=== PATIENT | male | born 1940 | race Caucasian/White ===

== ENCOUNTER → 2017-03-02 | Outpatient (CLI) | payer MEDICARE ==
[2017-03-02 17:26] LABS: Blood Urea Nitrogen 14 mg/dL (9-20); Non-African American GFR(MDRD) >60 (>60 ml/min/1.73 sqM)
--- NOTE | 2017-03-02 19:04 | CT ---
EXAMINATION TYPE: CT chest w con DATE OF EXAM: 03/02/2017 COMPARISON: NONE HISTORY: Right sided breast swelling and pain CT DLP: 252.3 mGycm Automated exposure control for dose reduction was used. CONTRAST: CT scan of the chest is performed with IV Contrast, patient injected with 100 mL of Omnipaque 300. FINDINGS: There is mild diffuse pulmonary emphysema. There is some increased interstitial density in both lungs consistent with mild fibrosis. There is a 1 cm stellate infiltrate in the superior segment left lowe r lobe. There are no hilar masses. Thoracic aorta is atheromatous. There is aneurysm of the thoracic aorta. T he proximal and mid descending aorta measure up to 5 cm. There is thrombus that measures up to almost 2 cm. There is no sign of dissection. There are surgical clips in the upper abdominal aorta. I see n o filling defects in the pulmonary arteries. There is no mediastinal adenopathy. There are no hilar m asses. There is no pericardial effusion. Heart is slightly enlarged. There is no pleural effusion. There is a oval-shaped 2.5 x 1.2 cm density at the right breast consistent with some gynecomastia. Thoracic spine is intact. I see no focal bony destructive process. . IMPRESSION: Emphysema. Thoracic aortic aneurysm measures up to 5 cm with mural thrombus. Very small stellate infiltrate in the left lower lobe is probably due to scarring. Atherosclerotic vascular dise ase. Cardiomegaly. Asymmetric right breast density probably is due to gynecomastia. Ultrasound would be helpful for furt her evaluation if clinically indicated. Large central pulmonary arteries consistent with pulmonary hypertension
== END | disposition home or self-care (01) ==
LOC: RADCTMAIN 16:47
PROVIDERS: ATTEND Family Medicine
DX: J43.9 Emphysema, unspecified (principal); R91.8 Other nonspecific abnormal finding of lung field
CPT/HCPCS: 82565; 84520; 71260; 36415; Q9967

== ENCOUNTER → 2017-11-26 | Outpatient (CLI) | payer MEDICARE ==
[2017-11-26 16:24] LABS: Blood Urea Nitrogen 17 mg/dL (9-20)
--- NOTE | 2017-11-27 08:00 | CT ---
EXAMINATION TYPE: CT angio chest DATE OF EXAM: 11/26/2017 COMPARISON: CT chest March 02, 2017. HISTORY: Thoracic aortic aneurysm. CT DLP: 446 mGycm. Automated Exposure Control for Dose Reduction was Utilized. CONTRAST: CTA scan of the thorax is performed without and with IV Contrast, patient injected with 100 mL of Iso sharon 370, aneurysm protocol. Three-D Images are created on independent workstation and reviewed. [facility] protocol. FINDINGS: LUNGS: There is background of moderate underlying emphysematous change redemonstrated. There is less prominent 3 mm nodule in the superior aspect left lower lobe axial image 32. There is persistent reti culation or fibrosis in the right lung base. There is no new suspicious nodule or mass. There is no p leural effusion or pneumothorax seen bilaterally. Tracheobronchial tree is patent. MEDIASTINUM: There is satisfactory enhancement of the pulmonary artery and its branches, there is no CT evidence for pulmonary embolism. There are no greater than 1 cm hilar or mediastinal lymph nodes. No significant pericardial effusion is seen. Main pulmonary artery remains dilated at 4.0 cm axial image 28, CT findings consistent with underlying pulmonary artery hypertension. Cardiomegaly is rede monstrated. There is fairly severe 3 vessel coronary artery calcification and/or stents noted. Ascending aorta measures up to 3.9 cm in diameter axial image 30. There is ectasia of the descending thoracic aorta. There is more focal aneurysm measuring 4.4 x 4.3 cm axial image 32 with anterior left lateral peripheral noncalcified plaque redemonstrated that extends inferiorly to level of diaphragma tic hiatus where there is additional aneurysm measuring 4.9 x 4.8 cm on axial image 56. There is fair ly moderate to severe concentric mixed plaque in the lower thoracic and upper abdominal aorta with pl aque extension into upper abdominal branches. There are surgical clips just below level of renal anahy george redemonstrated. Just below this there is partial visualization of stent graft in the mid abdomen . OTHER: Nodular gynecomastia bilaterally is redemonstrated. Cholecystectomy clips are again seen. IMPRESSION: Ectatic and aneurysmal thoracic aorta measuring up to 3.9 cm and ascending segment and 4. 9 cm and descending segment with fairly moderate to severe plaque in mid to distal thoracic aorta an d upper abdominal aorta above surgical placement of stent graft noted. Overall no appreciable change in aneurysm size from prior.
== END | disposition home or self-care (01) ==
LOC: RADCTMAIN 15:36
PROVIDERS: ATTEND Surgery
DX: I77.810 Thoracic aortic ectasia (principal); I70.0 Atherosclerosis of aorta; Z98.890 Other specified postprocedural states
CPT/HCPCS: 82565; 84520; 71275; 36415; Q9967

== ENCOUNTER 2018-01-08 15:27 | Inpatient (IN) | payer MEDICARE ==
--- NOTE | 2018-01-08 15:46 | ED ---
General Adult HPI - General Chief complaint: Arrhythmia/Palpitations Stated complaint: Irregular heart Time Seen by Provider: 01/08/18 15:45 Source: patient, RN notes reviewed, old records reviewed Mode of arrival: ambulatory Limitations: no limitations - History of Present Illness Initial comments: This is a 77-year-old male the ER for evaluation of not feeling well, irregular heartbeat. Patient has no significant history of heart disease, he states he was told he is negative for dental aneurysm at some point. Patient denies any pain, he states his heart rate elevated for about 3 days, patient thought he was having some gas or constipation. But again I shortness of breath no recent travel history no known sick contacts. Patient has no medication changes. No known fevers. Again no chest pain no shortness of breath - Related Data Home Medications Medication Instructions Recorded Confirmed ALPRAZolam [Xanax] 0.5 mg PO DAILY PRN 08/26/15 01/08/18 Albuterol Sulfate [Proair Hfa] 1 - 2 puff INHALATION RT-Q6H PRN 08/26/15 Clopidogrel [Plavix] 75 mg PO DAILY 08/26/15 01/08/18 Mometasone/Formoterol [Dulera 200 2 puff INHALATION RT-DAILY PRN 08/26/15 Mcg/5 Mcg Inhaler] Aspirin [Adult Low Dose Aspirin EC] 81 mg PO HS 12/25/16 01/08/18 Atorvastatin [Lipitor] 20 mg PO HS 12/25/16 01/08/18 Mercaptopurine [Purinethol] 50 mg PO DAILY 12/25/16 01/08/18 Levothyroxine Sodium [Synthroid] 112 mcg PO DAILY 01/08/18 01/08/18 Allergies Allergy/AdvReac Type Severity Reaction Status Date / Time codeine Allergy Unknown Verified 01/08/18 16:01 Review of Systems ROS Statement: Those systems with pertinent positive or pertinent negative responses have been documented in the HPI. ROS Other: All systems not noted in ROS Statement are negative. 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,AUTOIMMUNE HEPATITIS, COLON POLYPS, rt elbow bursa , dysphagia, rt carotid artery blocked Last Myocardial Infarction Date:: UNK History of Any Multi-Drug Resistant Organisms: None Reported Past Surgical History: Cholecystectomy Additional Past Surgical History / Comment(s): ABDOMINAL AORTIC ANEURYSM REPAIR WITH STENTS,COLONOSCOPY,NHAN CATARACTS, lt carotid artery surgery Past Anesthesia/Blood Transfusion Reactions: No Reported Reaction Past Psychological History: No Psychological Hx Reported Smoking Status: Current every day smoker Past Alcohol Use History: None Reported Past Drug Use History: None Reported - Past Family History Mother Family Medical History: Cancer Father Additional Family Medical History / Comment(s): COLOSTOMY Daughter(s) Family Medical History: Deep Vein Thrombosis (DVT) Additional Family Medical History / Comment(s): HX FACTOR FIVE LEIDEN General Exam Limitations: no limitations General appearance: alert, in no apparent distress Head exam: Present: atraumatic, normocephalic, normal inspection Eye exam: Present: normal appearance, PERRL, EOMI. Absent: scleral icterus, conjunctival injection, periorbital swelling ENT exam: Present: normal exam, mucous membranes moist Neck exam: Present: normal inspection. Absent: tenderness, meningismus, lymphadenopathy Respiratory exam: Present: normal lung sounds bilaterally. Absent: respiratory distress, wheezes, rales, rhonchi, stridor Cardiovascular Exam: Present: tachycardia, irregular rhythm, normal heart sounds. Absent: systolic murmur, diastolic murmur, rubs, gallop, clicks GI/Abdominal exam: Present: soft, normal bowel sounds. Absent: distended, tenderness, guarding, rebound, rigid Extremities exam: Present: normal inspection, full ROM, normal capillary refill. Absent: tenderness, pedal edema, joint swelling, calf tenderness Back exam: Present: normal inspection Neurological exam: Present: alert, oriented X3, CN II-XII intact Psychiatric exam: Present: normal affect, normal mood Skin exam: Present: warm, dry, intact, normal color. Absent: rash Course Vital Signs 01/08/18 01/08/18 01/08/18 15:30 16:12 17:12 Temperature 97.0 F L Pulse Rate 144 H 144 H Pulse Rate [ 146 H Trick Rodeo Rider ] Respiratory 20 18 Rate Blood Pressure 134/88 148/84 O2 Sat by Pulse 98 100 Oximetry 01/08/18 01/08/18 17:32 18:20 Temperature Pulse Rate 142 H 87 Pulse Rate [ Trick Rodeo Rider ] Respiratory 18 18 Rate Blood Pressure 113/81 98/76 O2 Sat by Pulse 100 98 Oximetry - Reevaluation(s) Reevaluation #1: 01/08/18 18:47 Patient's heart rate initially mild improvement in rate EKG Findings - EKG Comments: EKG Findings:: EKG shows a flutter rate of 141, QRS 88, QTc 382 Medical Decision Making - Medical Decision Making 77 male the ER for evaluation of irregular heart positive A. fib with RVR which is new onset, will admit patient for cardiology evaluation and treatment - Lab Data Result diagrams: 01/08/18 15:50 01/08/18 15:50 Lab Results 01/08/18 01/08/18 01/08/18 Range/Units 15:50 15:50 15:50 WBC 6.4 (3.8-10.6) k/uL RBC 4.08 L (4.30-5.90) m/uL Hgb 13.5 (13.0-17.5) gm/dL Hct 41.3 (39.0-53.0) % MCV 101.4 H (80.0-100.0) fL MCH 33.1 (25.0-35.0) pg MCHC 32.7 (31.0-37.0) g/dL RDW 14.8 (11.5-15.5) % Plt Count 177 (150-450) k/uL Neutrophils % 74 % Lymphocytes % 14 % Monocytes % 8 % Eosinophils % 2 % Basophils % 0 % Neutrophils # 4.7 (1.3-7.7) k/uL Lymphocytes # 0.9 L (1.0-4.8) k/uL Monocytes # 0.5 (0-1.0) k/uL Eosinophils # 0.1 (0-0.7) k/uL Basophils # 0.0 (0-0.2) k/uL Macrocytosis Slight PT 10.6 (9.0-12.0) sec INR 1.1 (<1.2) APTT 24.6 (22.0-30.0) sec D-Dimer 18.13 H (<0.60) mg/L FEU Sodium 140 (137-145) mmol/L Potassium 4.4 (3.5-5.1) mmol/L Chloride 99 (98-107) mmol/L Carbon Dioxide 29 (22-30) mmol/L Anion Gap 12 mmol/L BUN 14 (9-20) mg/dL Creatinine 0.82 (0.66-1.25) mg/dL Est GFR (CKD-EPI)AfAm >90 (>60 ml/min/1.73 sqM) Est GFR (CKD-EPI)NonAf 84 (>60 ml/min/1.73 sqM) Glucose 99 (74-99) mg/dL Calcium 9.4 (8.4-10.2) mg/dL Magnesium 1.9 (1.6-2.3) mg/dL Total Bilirubin 0.7 (0.2-1.3) mg/dL AST 39 (17-59) U/L ALT 41 (21-72) U/L Alkaline Phosphatase 190 H (38-126) U/L Total Creatine Kinase (55-170) U/L CK-MB (CK-2) (0.0-2.4) ng/mL CK-MB (CK-2) Rel Index Troponin I (0.000-0.034) ng/mL NT-Pro-B Natriuret Pep pg/mL Total Protein 7.7 (6.3-8.2) g/dL Albumin 4.2 (3.5-5.0) g/dL Lipase 27 (23-300) U/L TSH 3.310 (0.465-4.680) mIU/L 01/08/18 01/08/18 Range/Units 15:50 15:50 WBC (3.8-10.6) k/uL RBC (4.30-5.90) m/uL Hgb (13.0-17.5) gm/dL Hct (39.0-53.0) % MCV (80.0-100.0) fL MCH (25.0-35.0) pg MCHC (31.0-37.0) g/dL RDW (11.5-15.5) % Plt Count (150-450) k/uL Neutrophils % % Lymphocytes % % Monocytes % % Eosinophils % % Basophils % % Neutrophils # (1.3-7.7) k/uL Lymphocytes # (1.0-4.8) k/uL Monocytes # (0-1.0) k/uL Eosinophils # (0-0.7) k/uL Basophils # (0-0.2) k/uL Macrocytosis PT (9.0-12.0) sec INR (<1.2) APTT (22.0-30.0) sec D-Dimer (<0.60) mg/L FEU Sodium (137-145) mmol/L Potassium (3.5-5.1) mmol/L Chloride (98-107) mmol/L Carbon Dioxide (22-30) mmol/L Anion Gap mmol/L BUN (9-20) mg/dL Creatinine (0.66-1.25) mg/dL Est GFR (CKD-EPI)AfAm (>60 ml/min/1.73 sqM) Est GFR (CKD-EPI)NonAf (>60 ml/min/1.73 sqM) Glucose (74-99) mg/dL Calcium (8.4-10.2) mg/dL Magnesium (1.6-2.3) mg/dL Total Bilirubin (0.2-1.3) mg/dL AST (17-59) U/L ALT (21-72) U/L Alkaline Phosphatase (38-126) U/L Total Creatine Kinase 61 (55-170) U/L CK-MB (CK-2) 1.0 (0.0-2.4) ng/mL CK-MB (CK-2) Rel Index 1.6 Troponin I 0.082 H* (0.000-0.034) ng/mL NT-Pro-B Natriuret Pep 1330 pg/mL Total Protein (6.3-8.2) g/dL Albumin (3.5-5.0) g/dL Lipase (23-300) U/L TSH (0.465-4.680) mIU/L - Radiology Data Radiology results: report reviewed (Chest x-ray negative, CT chest negative for PE), image reviewed Critical Care Time Critical Care Time: Yes Total Critical Care Time: 31 Disposition Clinical Impression: Tachycardia, Atrial fibrillation with RVR Disposition: ADMITTED IP TO THIS HOSP Condition: Fair Is patient prescribed a controlled substance at d/c from ED?: No
[2018-01-08] MEDS ORDERED: HEPARIN SODIUM,PORCINE 5,000 UNIT/ML 1 ML VIAL IV PRN (16:19)
[2018-01-08] MEDS ORDERED: SODIUM CHLORIDE 0.9% 1,000 ML IV STA ×2 (16:19)
[2018-01-08] MEDS ORDERED: HEPARIN SODIUM,PORCINE 5,000 UNIT/ML 1 ML VIAL IV ONE (16:19)
[2018-01-08] MEDS ORDERED: NITROGLYCERIN SL TABS 0.4 MG TAB SUBLINGUAL PRN (16:19)
[2018-01-08 16:40] LABS: Basophils % (A) 0 %; Eosinophils # (A) 0.1 k/uL (0-0.7); Eosinophils % (A) 2 %; HCT 41.3 % (39.0-53.0); HGB 13.5 gm/dL (13.0-17.5); Lymphocytes # (A) 0.9 k/uL (1.0-4.8); Lymphocytes % (A) 14 %; MCH 33.1 pg (25.0-35.0); MCHC 32.7 g/dL (31.0-37.0); MCV 101.4 fL (80.0-100.0); Macrocytosis Slight; Mean Platelet Volume 7.4; Monocytes # (A) 0.5 k/uL (0-1.0); Monocytes % (A) 8 %; Neutrophils # (A) 4.7 k/uL (1.3-7.7); Neutrophils % (A) 74 %; Platelet Count 177 k/uL (150-450); RBC 4.08 m/uL (4.30-5.90); RDW 14.8 % (11.5-15.5); WBC 6.4 k/uL (3.8-10.6)
[2018-01-08 16:41] LABS: ALT 41 U/L (21-72); AST 39 U/L (17-59); Albumin 4.2 g/dL (3.5-5.0); Alkaline Phosphatase 190 U/L (38-126); Anion Gap 12 mmol/L; Blood Urea Nitrogen 14 mg/dL (9-20); Calcium 9.4 mg/dL (8.4-10.2); Carbon Dioxide 29 mmol/L (22-30); Chloride 99 mmol/L (98-107); Glucose 99 mg/dL (74-99); Lipase 27 U/L (23-300); Magnesium 1.9 mg/dL (1.6-2.3); Potassium 4.4 mmol/L (3.5-5.1); Sodium 140 mmol/L (137-145); Total Bilirubin 0.7 mg/dL (0.2-1.3); Total Protein 7.7 g/dL (6.3-8.2)
--- NOTE | 2018-01-08 16:43 | XR ---
EXAMINATION TYPE: XR chest 2V DATE OF EXAM: 01/08/2018 COMPARISON: CTA chest November 26, 2017. HISTORY: Irregular heartbeats and chest pain. TECHNIQUE: Frontal and lateral views of the chest are obtained. FINDINGS: There is chronic emphysematous change with basilar scarring and/or atelectasis redemonstra marlon. There is no new suspicious focal air space opacity, pleural effusion, or pneumothorax seen. [employer] lois blunting of posterior costophrenic angles is present. The cardiac silhouette size is within norm al limits with ectatic descending thoracic aorta redemonstrated. The osseous structures are intact. Surgical change in the upper to mid abdomen from aortic aneurysm repair is partially imaged. IMPRESSION: Chronic changes without acute pulmonary process.
[2018-01-08 16:48] LABS: INR 1.1 (<1.2); Partial Thromboplastin Time 24.6 sec (22.0-30.0); Prothrombin Time 10.6 sec (9.0-12.0)
[2018-01-08 17:00] LABS: D-Dimer 18.13 mg/L FEU (<0.60)
[2018-01-08] MEDS ORDERED: DILTIAZEM 50 MG in SODIUM CHLORIDE 0.9% 40 ML IV ONE (17:00)
[2018-01-08 17:02] LABS: Troponin I 0.082 ng/mL (0.000-0.034)
[2018-01-08] MEDS: HEPARIN SODIUM,PORCINE/D5W PMX 25,000 UNIT in DEXTROSE/WATER 1 500ML.BAG IV SCH ×2 (17:06→23:37)
[2018-01-08] MEDS ORDERED: RX INFO: IV CONTRAST WAS GIVEN 1 EACH MISC MISCELLANE PRN (17:26)
[2018-01-08] MEDS ORDERED: ALPRAZolam 0.5 MG TAB PO STA (17:38)
--- NOTE | 2018-01-08 18:33 | CT ---
EXAMINATION TYPE: CT angio chest DATE OF EXAM: 01/08/2018 COMPARISON: Prior CTA of the chest dated 11/26/2017 HISTORY: TACHYCARDIA CT DLP: 181.8 mGycm Automated exposure control for dose reduction was used. CONTRAST: CTA scan of the thorax is performed with IV Contrast, patient injected with 80 mL of Isovue 370, pulm onary embolism protocol. MIP images are created and reviewed. 3D reconstructed images are created o n an independent workstation and reviewed. FINDINGS: LUNGS: The lungs are grossly clear, there is no concerning parenchymal mass or nodule identified. T here is no pleural effusion or pneumothorax seen. The tracheobronchial tree is patent. Extensive emp hysematous changes are again noted. AORTA: Ascending aorta is aneurysmal at 4.1 cm, descending aorta also aneurysmal measuring 4.9 cm. T he heart is enlarged. Pulmonary artery is prominent. There are coronary artery calcifications. MEDIASTINUM: There is satisfactory enhancement of the pulmonary artery and its branches, there is no CT evidence for pulmonary embolism. There are no greater than 1 cm hilar or mediastinal lymph nodes. No pericardial effusion is seen. OTHER: No additional significant abnormality is seen. IMPRESSION: EMPHYSEMA. THORACIC AORTIC ANEURYSM. CARDIOMEGALY AND CORONARY ARTERY DISEASE. CORRELATE FOR PULMONAR Y ARTERY HYPERTENSION.
[2018-01-08] MEDS ORDERED: SODIUM CHLORIDE 0.9% 500 ML IV ONE (19:15)
[2018-01-08 19:58] VITALS: BMI 22.7
[2018-01-08] MEDS: METOPROLOL TARTRATE 50 MG TAB PO SCH (21:04)
[2018-01-08] MEDS ORDERED: ALPRAZolam 0.5 MG TAB PO PRN (21:25)
[2018-01-08] MEDS ORDERED: ATORVASTATIN 20 MG TAB PO SCH (21:45)
[2018-01-08] MEDS ORDERED: IPRATROPIUM-ALBUTEROL 3 ML NEB INHALATION PRN (21:52)
[2018-01-08 23:40] LABS: Creatine Kinase MB 0.9 ng/mL (0.0-2.4)
[2018-01-08 23:42] LABS: Troponin I 0.082 ng/mL (0.000-0.034)
[2018-01-09 04:16] LABS: Basophils % (A) 0 %; Eosinophils # (A) 0.1 k/uL (0-0.7); Eosinophils % (A) 3 %; HCT 34.7 % (39.0-53.0); HGB 11.5 gm/dL (13.0-17.5); Lymphocytes # (A) 0.8 k/uL (1.0-4.8); Lymphocytes % (A) 16 %; MCH 33.9 pg (25.0-35.0); MCHC 33.1 g/dL (31.0-37.0); MCV 102.3 fL (80.0-100.0); Macrocytosis Slight; Mean Platelet Volume 7.5; Monocytes # (A) 0.4 k/uL (0-1.0); Monocytes % (A) 8 %; Neutrophils # (A) 3.6 k/uL (1.3-7.7); Neutrophils % (A) 71 %; Platelet Count 137 k/uL (150-450); RBC 3.39 m/uL (4.30-5.90); RDW 14.9 % (11.5-15.5); WBC 5.1 k/uL (3.8-10.6)
[2018-01-09 04:58] LABS: Creatine Kinase MB 0.9 ng/mL (0.0-2.4)
[2018-01-09 05:10] LABS: Troponin I 0.091 ng/mL (0.000-0.034)
[2018-01-09 05:40] LABS: Anion Gap 12 mmol/L; Blood Urea Nitrogen 14 mg/dL (9-20); Calcium 8.6 mg/dL (8.4-10.2); Carbon Dioxide 23 mmol/L (22-30); Chloride 106 mmol/L (98-107); Cholesterol 122 mg/dL (<200); Glucose 88 mg/dL (74-99); HDL Cholesterol 44 mg/dL (40-60); LDL Cholesterol,Calculated 67 mg/dL (0-99); Potassium 4.2 mmol/L (3.5-5.1); Sodium 141 mmol/L (137-145); Triglycerides 57 mg/dL (<150)
[2018-01-09] MEDS ORDERED: LEVOTHYROXINE 112 MCG TAB PO SCH (06:30)
[2018-01-09] MEDS: METOPROLOL TARTRATE 50 MG TAB PO SCH (08:54)
[2018-01-09] MEDS ORDERED: ASPIRIN 325 MG TAB PO SCH (09:00)
[2018-01-09] MEDS ORDERED: CLOPIDOGREL 75 MG TAB PO SCH (09:00)
[2018-01-09] MEDS ORDERED: MERCAPTOPURINE 50 MG TAB PO SCH (09:00)
[2018-01-09 09:52] VITALS: RESP 18
--- NOTE | 2018-01-09 11:04 | P.HPIM ---
History of Present Illness H&P Date: 01/09/18 Chief Complaint: Shortness of breath Oneil Arthur is a 77-year-old male patient of Dr. Kayla Meyers who presented to [facility] emergency room with several days complaint of shortness of breath. Patient was seen at Dr. Kayla Meyers office for an echocardiogram, he had evidence of atrial fibrillation with rapid ventricular response, he was sent to [facility] emergency room. Patient was evaluated in emergency room he was started on IV Cardizem and IV heparin and admitted to telemetry floor cardiology consultation was requested. Patient denies any previous history of hypertension, no history of cardiac disease, he has known history of ascending aortic aneurysm, for which she is monitored yearly at [facility], he also has known history of peripheral vascular disease and had stents in his groin area bilaterally by Dr. Vásquez 12 years ago, he has been maintained on Plavix since, he is a lifelong smoker. Past Medical History Past Medical History: COPD, Deep Vein Thrombosis (DVT), Myocardial Infarction ( [place]), Thyroid Disorder Additional Past Medical History / Comment(s): HX ABDOMINAL AORTIC ANEURYSM, VOCAL CORD [place]-2007 RADIATION,AUTOIMMUNE HEPATITIS, COLON POLYPS, rt elbow bursa , dysphagia, rt carotid artery blocked Last Myocardial Infarction Date:: UNK History of Any Multi-Drug Resistant Organisms: None Reported Past Surgical History: Cholecystectomy Additional Past Surgical History / Comment(s): ABDOMINAL AORTIC ANEURYSM REPAIR WITH STENTS,COLONOSCOPY,NHAN CATARACTS, lt carotid artery surgery Past Anesthesia/Blood Transfusion Reactions: No Reported Reaction Past Psychological History: No Psychological Hx Reported Smoking Status: Current every day smoker Past Alcohol Use History: None Reported Additional Past Alcohol Use History / Comment(s): STARTED SMOKING 1956 10 cigarettes/day Past Drug Use History: None Reported - Past Family History Mother Family Medical History: Cancer Additional Family Medical History / Comment(s): breast CA Father Additional Family Medical History / Comment(s): COLOSTOMY Daughter(s) Family Medical History: Deep Vein Thrombosis (DVT) Additional Family Medical History / Comment(s): HX FACTOR FIVE LEIDEN Medications and Allergies Home Medications Medication Instructions Recorded Confirmed Type ALPRAZolam [Xanax] 0.5 mg PO DAILY PRN 08/26/15 01/08/18 History Albuterol Sulfate [Proair Hfa] 1 - 2 puff INHALATION RT-Q6H PRN 08/26/15 History Clopidogrel [Plavix] 75 mg PO DAILY 08/26/15 01/08/18 History Mometasone/Formoterol [Dulera 200 2 puff INHALATION RT-DAILY PRN 08/26/15 History Mcg/5 Mcg Inhaler] Aspirin [Adult Low Dose Aspirin EC] 81 mg PO HS 12/25/16 01/08/18 History Atorvastatin [Lipitor] 20 mg PO HS 12/25/16 01/08/18 History Mercaptopurine [Purinethol] 50 mg PO DAILY 12/25/16 01/08/18 History Levothyroxine Sodium [Synthroid] 112 mcg PO DAILY 01/08/18 01/08/18 History Allergies Allergy/AdvReac Type Severity Reaction Status Date / Time codeine Allergy Unknown Verified 01/08/18 16:01 Physical Exam Vitals: Vital Signs Temp Pulse Pulse Resp BP BP Pulse Ox 01/09/18 08:00 96.4 F L 63 18 125/62 96 01/09/18 03:47 61 17 01/09/18 03:43 97.5 F L 61 17 130/74 97 01/08/18 23:57 69 18 01/08/18 23:51 97.5 F L 69 18 122/78 93 L 01/08/18 20:00 97.2 F L 71 17 103/72 95 01/08/18 19:13 97.2 F L 71 18 103/72 95 01/08/18 19:11 97.1 F L 110 H 18 92/61 98 01/08/18 18:20 87 18 98/76 98 01/08/18 17:32 142 H 18 113/81 100 01/08/18 17:12 144 H 18 148/84 100 01/08/18 16:12 146 H 01/08/18 15:30 97.0 F L 144 H 20 134/88 98 Intake and Output 01/08/18 01/09/18 01/09/18 22:59 06:59 14:59 Intake Total 300 1398.969 Output Total 100 Balance 300 1298.969 Intake: IV 100 0.9@20ml/hr 100 Intake, IV Titration 1298.969 Amount Heparin Sodium,Porcine/ 598.969 D5w Pmx 25,000 unit In Dextrose/Water 1 500ml. bag @ 12 UNITS/KG/HR 15. 89 mls/hr IV .Q24H OMI Rx #:[id number] Sodium Chloride 0.9% 1, 700 000 ml @ 100 mls/hr IV . Q10H STA Rx#:[id number] Oral 300 Output: Urine 100 Other: Voiding Method Toilet Toilet Toilet Urinal Urinal Urinal # Voids 1 Weight 67.9 kg 67.9 kg In general patient is alert and oriented 3 in no apparent distress HEENT head normocephalic and atraumatic Neck is supple no JVD no goiter no lymphadenopathy Chest exam reveals a few scattered crackles no wheezing Cardiac exam reveals regular heart sounds no gallops no murmurs Abdomen is soft nontender no organomegaly with normal bowel sounds Extremity exam reveals no edema no cyanosis or clubbing Results CBC & Chem 7: 01/09/18 03:58 01/09/18 03:58 Labs: Abnormal Lab Results - Last 24 Hours (Table) 01/08/18 01/08/18 01/08/18 Range/Units 15:50 15:50 15:50 RBC 4.08 L (4.30-5.90) m/uL Hgb (13.0-17.5) gm/dL Hct (39.0-53.0) % MCV 101.4 H (80.0-100.0) fL Plt Count (150-450) k/uL Lymphocytes # 0.9 L (1.0-4.8) k/uL APTT (22.0-30.0) sec D-Dimer 18.13 H (<0.60) mg/L FEU Alkaline Phosphatase 190 H (38-126) U/L Total Creatine Kinase (55-170) U/L Troponin I (0.000-0.034) ng/mL 01/08/18 01/08/18 01/08/18 Range/Units 15:50 22:29 22:29 RBC (4.30-5.90) m/uL Hgb (13.0-17.5) gm/dL Hct (39.0-53.0) % MCV (80.0-100.0) fL Plt Count (150-450) k/uL Lymphocytes # (1.0-4.8) k/uL APTT 36.0 H (22.0-30.0) sec D-Dimer (<0.60) mg/L FEU Alkaline Phosphatase (38-126) U/L Total Creatine Kinase 54 L (55-170) U/L Troponin I 0.082 H* 0.082 H* (0.000-0.034) ng/mL 01/09/18 01/09/18 01/09/18 Range/Units 03:58 03:58 03:58 RBC 3.39 L (4.30-5.90) m/uL Hgb 11.5 L (13.0-17.5) gm/dL Hct 34.7 L (39.0-53.0) % MCV 102.3 H (80.0-100.0) fL Plt Count 137 L (150-450) k/uL Lymphocytes # 0.8 L (1.0-4.8) k/uL APTT 59.3 H (22.0-30.0) sec D-Dimer (<0.60) mg/L FEU Alkaline Phosphatase (38-126) U/L Total Creatine Kinase (55-170) U/L Troponin I 0.091 H* (0.000-0.034) ng/mL Thrombosis Risk Factor Assmnt - Choose All That Apply Each Risk Factor Represents 3 Points: Age 75 years or older, Family history of DVT/PE, History of DVT/PE Other congenital or acquired thrombophilia - If yes, enter type in comment: No Thrombosis Risk Factor Assessment Total Risk Factor Score: 9 Thrombosis Risk Factor Assessment Level: High Risk Assessment and Plan Plan: #1 atrial fibrillation with rapid ventricular response #2 underlying history of COPD #3 underlying history of hypothyroidism #4 underlying history of peripheral vascular disease maintained on Plavix #5 tobacco abuse patient is counseled in length regarding smoking cessation #6 underlying history of hyperlipidemia #7 known history of ascending aortic aneurysm #8 elevated troponin levels #9 elevated d-dimer computed tomography scan of the chest was done At this time patient is maintained on IV heparin and IV Cardizem cardiology consultation requested Will follow closely
[2018-01-09 11:59] VITALS: BP 127/75; PULSE 62; TEMP 97.7
--- NOTE | 2018-01-09 12:06 | P.DS ---
Providers Date of admission: 01/08/18 16:20 Expected date of discharge: 01/09/18 Attending physician: Juan Hollins Consults: 01/08/18 16:20 Consult Physician Urgent Consulting Provider: Renan Rice Consult Reason/Comments: afib Do you want consulting provider notified?: Yes Primary care physician: Kayla Meyers [facility] Course: Diagnosis on discharge: #1 atrial fibrillation with rapid ventricular response #2 underlying history of COPD #3 underlying history of hypothyroidism #4 underlying history of peripheral vascular disease maintained on Plavix #5 tobacco abuse patient is counseled in length regarding smoking cessation #6 underlying history of hyperlipidemia #7 known history of ascending aortic aneurysm #8 elevated troponin levels #9 elevated d-dimer computed tomography scan of the chest was done. And was negative per report. Hospital course: Oneil Arthur is a 77-year-old male patient of Dr. Kayla Meyers who presented to [facility] emergency room with several days complaint of shortness of breath. Patient was seen at Dr. Kayla Meyers office for an echocardiogram, he had evidence of atrial fibrillation with rapid ventricular response, he was sent to [facility] emergency room. Patient was evaluated in emergency room he was started on IV Cardizem and IV heparin and admitted to telemetry floor cardiology consultation was requested. Patient denies any previous history of hypertension, no history of cardiac disease, he has known history of ascending aortic aneurysm, for which she is monitored yearly at [facility], he also has known history of peripheral vascular disease and had stents in his groin area bilaterally by Dr. Vásquez 12 years ago, he has been maintained on Plavix since, he is a lifelong smoker. On 01/09/2018 patient regained normal sinus rhythm, he was evaluated by cardiology, and was cleared for discharge, cardiology recommendation were to discontinue Plavix, start Eliquis for anticoagulation, and start metoprolol 50 mg by mouth twice a day for rate control, patient is feeling asymptomatic and he is anxious to be discharged home, troponin levels were evaluated by cardiology and he was cleared for discharge, he will be followed by be ready as outpatient for further evaluation. Patient Condition at Discharge: Fair Plan - Discharge Summary Discharge Rx Participant: No New Discharge Prescriptions: New Apixaban [Eliquis] 5 mg PO BID #60 tab Metoprolol Tartrate [Lopressor] 50 mg PO BID tab Continue ALPRAZolam [Xanax] 0.5 mg PO DAILY PRN PRN Reason: Anxiety Mometasone/Formoterol [Dulera 200 Mcg/5 Mcg Inhaler] 2 puff INHALATION RT- DAILY PRN PRN Reason: Shortness Of Breath Albuterol Sulfate [Proair Hfa] 1 - 2 puff INHALATION RT-Q6H PRN PRN Reason: Shortness Of Breath Atorvastatin [Lipitor] 20 mg PO HS Aspirin [Adult Low Dose Aspirin EC] 81 mg PO HS Mercaptopurine [Purinethol] 50 mg PO DAILY Levothyroxine Sodium [Synthroid] 112 mcg PO DAILY Discontinued Clopidogrel [Plavix] 75 mg PO DAILY Discharge Medication List ALPRAZolam [Xanax] 0.5 mg PO DAILY PRN 08/26/15 [History] Albuterol Sulfate [Proair Hfa] 1 - 2 puff INHALATION RT-Q6H PRN 08/26/15 [ History] Mometasone/Formoterol [Dulera 200 Mcg/5 Mcg Inhaler] 2 puff INHALATION RT-DAILY PRN 08/26/15 [History] Aspirin [Adult Low Dose Aspirin EC] 81 mg PO HS 12/25/16 [History] Atorvastatin [Lipitor] 20 mg PO HS 12/25/16 [History] Mercaptopurine [Purinethol] 50 mg PO DAILY 12/25/16 [History] Levothyroxine Sodium [Synthroid] 112 mcg PO DAILY 01/08/18 [History] Apixaban [Eliquis] 5 mg PO BID #60 tab 01/09/18 [Rx] Metoprolol Tartrate [Lopressor] 50 mg PO BID tab 01/09/18 [Rx] Follow up Appointment(s)/Referral(s): Jose Miguel Patel MD [STAFF PHYSICIAN] - 2 Weeks (Office will call with follow up appointment.) Kayla Meyers DO [Primary Care Provider] - 01/15/18 2:45 pm Patient Instructions/Handouts: A-fib (Atrial Fibrillation) (DC), Safe Use of Anticoagulants (DC)
--- NOTE | 2018-01-09 18:01 | CONS ---
CONSULTATION Mr. Oneil Arthur is a 77-year-old gentleman with a history of hypertension, hyperlipidemia, and also has a history of and hypothyroidism. He came into the hospital yesterday evening, sent by his family doctor when he was in atrial fib with a rapid rate. Apparently after arrival, he then converted to a sinus rhythm. He is resting comfortably without symptoms. He smokes 1 to 1-1/2 pack daily. Denies chest pain, stable shortness of breath. He also is known to have an abdominal aortic aneurysm in the past for which he had a stent grafting performed here by Dr. Vásquez more than 7-8 years ago. He also is known to have a thoracic aortic aneurysm that measures 4.9 cm and he sees Dr. Butch Noel at [facility] and recently he had a CT angio which revealed a 4.9 cm and the same is confirmed again here. The patient's blood pressure control is good, but unfortunately he smokes and has no intentions to quit. He has a remote history of DVT as well. He came in with atrial fibrillation but has converted to sinus rhythm. He is resting comfortably at the time of my evaluation. Eager to go home. PAST MEDICAL HISTORY: 1. Remarkable for smoking and COPD. 2. History of hypertension. 3. Hyperlipidemia. 4. Hypothyroidism. 5. The patient has history of DVT in the past. 6. He is status post cholecystectomy. 7. Stent graft of abdominal aortic aneurysm and thoracic aortic aneurysm in the descending thoracic aorta is being followed noninvasively. EXAMINATION: Blood pressure is 128/70, pulse rate is 64, sinus. HEENT: Unremarkable. Fundus was not examined by me. NECK: Supple. There is no JVD. I do not hear a carotid bruit. Heart exam: Reveals S1, S2 heard normally. There is a short systolic murmur audible. Lungs are clear. Abdomen is soft, nontender. Lower extremities reveal diminished pulses. Central nervous system is grossly within normal limits. The EKG revealed atrial fibrillation, rapid ventricular rate, nonspecific ST changes, LVH by voltage criteria and isolated PVCs. Repeat EKG revealed a sinus mechanism without acute changes. IMPRESSION: 1. Paroxysmal atrial fibrillation. 2. Hypertension. 3. Abdominal aortic aneurysm. 4. Smoking and chronic obstructive pulmonary disease. 5. History of hyperlipidemia. RECOMMENDATIONS: I am recommending that we start him on Eliquis. Instead of the usual 5 given his aneurysm and smoking history, I am suggesting we will go to a 2.5 mg b.i.d. and aspirin 81 mg daily. I explained to the patient that the reduced dose probably has no good rationale, but given the fact that he has a nearly 5 cm aneurysm, we will decrease the Eliquis dose to 2.5 mg b.i.d. We will discontinue Plavix and continue aspirin. Advised to quit smoking, but he is not motivated to do so. He can be discharged and I will see him in the office in about 3-4 weeks. He will call me sooner for any questions, concerns or problems. HOWIE / HENRIN: [phone] /
== END 2018-01-09 14:34 | disposition home or self-care (01) | DRG 310 ==
LOC: EC 15:27 → 6SEL 16:20
PROVIDERS: ADMIT Internal Medicine; ATTEND Internal Medicine
DX: I48.0 Paroxysmal atrial fibrillation (principal); E03.9 Hypothyroidism, unspecified; E78.5 Hyperlipidemia, unspecified; F17.210 Nicotine dependence, cigarettes, uncomplicated; I10 Essential (primary) hypertension; I25.2 Old myocardial infarction; I71.2 Thoracic aortic aneurysm, without rupture; I73.9 Peripheral vascular disease, unspecified; J44.9 Chronic obstructive pulmonary disease, unspecified; R79.1 Abnormal coagulation profile; R13.10 Dysphagia, unspecified; R77.9 Abnormality of plasma protein, unspecified; Z71.6 Tobacco abuse counseling; Z79.899 Other long term (current) drug therapy; Z79.02 Long term (current) use of antithrombotics/antiplatelets; Z79.82 Long term (current) use of aspirin; Z79.890 Hormone replacement therapy; Z90.49 Acquired absence of other specified parts of digestive tract; Z86.79 Personal history of other diseases of the circulatory system; Z86.718 Personal history of other venous thrombosis and embolism; Z86.010 Personal history of colon polyps; Z85.21 Personal history of malignant neoplasm of larynx; Z88.5 Allergy status to narcotic agent; Z98.42 Cataract extraction status, left eye; Z98.41 Cataract extraction status, right eye; Z96.1 Presence of intraocular lens; Z82.49 Family history of ischemic heart disease and other diseases of the circulatory system
CPT/HCPCS: 36415; 71046; 71275; 80048; 80053; 80061; 82550; 82553; 83690; 83735; 83880; 84443; 84484; 85025; 85379; 85610; 85730; 96365; 96366; 96368; 96376; 99291

== ENCOUNTER 2018-01-10 14:59 | Inpatient (IN) | payer MEDICARE ==
[2018-01-10] MEDS ORDERED: DILTIAZEM 5 MG/1 ML (25ML VIAL) IV STA (15:24)
[2018-01-10] MEDS ORDERED: DILTIAZEM 50 MG in SODIUM CHLORIDE 0.9% 40 ML IV ONE (15:24)
[2018-01-10 15:34] LABS: Basophils % (A) 0 %; Eosinophils # (A) 0.1 k/uL (0-0.7); Eosinophils % (A) 1 %; HCT 38.6 % (39.0-53.0); HGB 12.8 gm/dL (13.0-17.5); Lymphocytes # (A) 0.9 k/uL (1.0-4.8); Lymphocytes % (A) 13 %; MCH 33.1 pg (25.0-35.0); MCHC 33.2 g/dL (31.0-37.0); MCV 99.7 fL (80.0-100.0); Macrocytosis Slight; Mean Platelet Volume 7.9; Monocytes # (A) 0.6 k/uL (0-1.0); Monocytes % (A) 8 %; Neutrophils # (A) 5.3 k/uL (1.3-7.7); Neutrophils % (A) 76 %; Platelet Count 202 k/uL (150-450); RBC 3.87 m/uL (4.30-5.90); RDW 15.7 % (11.5-15.5); WBC 7.1 k/uL (3.8-10.6)
--- NOTE | 2018-01-10 15:34 | ED ---
General Adult HPI - General Chief complaint: Arrhythmia/Palpitations Stated complaint: heart concerns-sent by Dr. Patel Time Seen by Provider: 01/10/18 15:13 Source: patient, RN notes reviewed, old records reviewed Mode of arrival: ambulatory Limitations: no limitations - History of Present Illness Initial comments: 77 -year-old male presenting for evaluation of elevated heart rate. Patient had recent hospitalization with atrial fibrillation with RVR. He was started on metoprolol and Eliquis. He was discharged yesterday with a normal heart rate according to the patient. He states that he has been checking his blood pressure and pulse with a home monitoring device that is noted a high heart rate 140s. He has been in contact with the blueprint clerk's office who recommended that he presented to the emergency department for evaluation. Patient does have some mild central chest tightness and has had nausea and belching. Denies significant dyspnea. Denies any radiating chest pain. He has been taking his medications as prescribed. - Related Data Home Medications Medication Instructions Recorded Confirmed ALPRAZolam [Xanax] 0.5 mg PO DAILY PRN 08/26/15 01/10/18 Albuterol Sulfate [Proair Hfa] 1 - 2 puff INHALATION RT-Q6H PRN 08/26/15 Mometasone/Formoterol [Dulera 200 2 puff INHALATION RT-DAILY PRN 08/26/15 Mcg/5 Mcg Inhaler] Atorvastatin [Lipitor] 20 mg PO HS 12/25/16 01/10/18 Mercaptopurine [Purinethol] 50 mg PO DAILY 12/25/16 01/10/18 Levothyroxine Sodium [Synthroid] 112 mcg PO DAILY 01/08/18 01/10/18 Nitroglycerin Sl Tabs [Nitrostat] 0.4 mg SUBLINGUAL Q5M PRN 01/10/18 01/10/18 Previous Rx's Medication Instructions Recorded Apixaban [Eliquis] 5 mg PO BID #60 tab 01/09/18 Metoprolol Tartrate [Lopressor] 50 mg PO BID tab 01/09/18 Allergies Allergy/AdvReac Type Severity Reaction Status Date / Time codeine Allergy Unknown Verified 01/10/18 15:30 Review of Systems ROS Statement: Those systems with pertinent positive or pertinent negative responses have been documented in the HPI. ROS Other: All systems not noted in ROS Statement are negative. 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,AUTOIMMUNE HEPATITIS, COLON POLYPS, rt elbow bursa , dysphagia, rt carotid artery blocked Last Myocardial Infarction Date:: UNK History of Any Multi-Drug Resistant Organisms: None Reported Past Surgical History: Cholecystectomy Additional Past Surgical History / Comment(s): ABDOMINAL AORTIC ANEURYSM REPAIR WITH STENTS,COLONOSCOPY,NHAN CATARACTS, lt carotid artery surgery Past Anesthesia/Blood Transfusion Reactions: No Reported Reaction Past Psychological History: No Psychological Hx Reported Smoking Status: Current every day smoker Past Alcohol Use History: None Reported Past Drug Use History: None Reported - Past Family History Mother Family Medical History: Cancer Additional Family Medical History / Comment(s): breast CA Father Additional Family Medical History / Comment(s): COLOSTOMY Daughter(s) Family Medical History: Deep Vein Thrombosis (DVT) Additional Family Medical History / Comment(s): HX FACTOR FIVE LEIDEN General Exam Limitations: no limitations General appearance: alert, in no apparent distress Head exam: Present: atraumatic, normocephalic Eye exam: Present: normal appearance, PERRL ENT exam: Present: normal exam Neck exam: Present: normal inspection. Absent: tenderness, meningismus Respiratory exam: Present: decreased breath sounds. Absent: respiratory distress Cardiovascular Exam: Present: tachycardia, irregular rhythm GI/Abdominal exam: Present: soft. Absent: distended, tenderness, guarding Extremities exam: Present: normal inspection, full ROM. Absent: pedal edema Neurological exam: Present: alert, oriented X3, CN II-XII intact. Absent: motor sensory deficit Psychiatric exam: Present: normal affect, normal mood Skin exam: Present: warm, dry, intact. Absent: cyanosis, diaphoretic Course Vital Signs 01/10/18 15:03 Temperature 97.4 F L Pulse Rate 145 H Respiratory 20 Rate Blood Pressure 123/72 O2 Sat by Pulse 96 Oximetry EKG Findings - EKG Comments: EKG Findings:: EKG: Atrial flutter with [address] segment elevation , rate of 147, QRS duration 100, QTC 391 Medical Decision Making - Medical Decision Making 77-year-old male with recent diagnosis of atrial fibrillation presents with palpitations, tachycardia and central chest tightness. Patient is anticoagulated. He was recently started on metoprolol. Rate of 147 EKG. Patient is started on Cardizem infusion. Workup reveals normal white blood cell count, stable hemoglobin, troponin is mildly elevated at 0.046 which is down trending. Electrolytes are within normal limits. BNP is elevated at 6000. Chest x-ray shows no owen pulmonary edema, there is pulmonary hypertension. Patient will be admitted for telemetry and further rate control. Cardiology placed on consult. - Lab Data Result diagrams: 01/10/18 15:25 01/10/18 15:25 Lab Results 01/10/18 01/10/18 01/10/18 Range/Units 15:25 15:25 15:25 WBC 7.1 (3.8-10.6) k/uL RBC 3.87 L (4.30-5.90) m/uL Hgb 12.8 L (13.0-17.5) gm/dL Hct 38.6 L (39.0-53.0) % MCV 99.7 (80.0-100.0) fL MCH 33.1 (25.0-35.0) pg MCHC 33.2 (31.0-37.0) g/dL RDW 15.7 H (11.5-15.5) % Plt Count 202 (150-450) k/uL Neutrophils % 76 % Lymphocytes % 13 % Monocytes % 8 % Eosinophils % 1 % Basophils % 0 % Neutrophils # 5.3 (1.3-7.7) k/uL Lymphocytes # 0.9 L (1.0-4.8) k/uL Monocytes # 0.6 (0-1.0) k/uL Eosinophils # 0.1 (0-0.7) k/uL Basophils # 0.0 (0-0.2) k/uL Macrocytosis Slight PT (9.0-12.0) sec INR (<1.2) APTT (22.0-30.0) sec Sodium 140 (137-145) mmol/L Potassium 3.8 (3.5-5.1) mmol/L Chloride 105 (98-107) mmol/L Carbon Dioxide 25 (22-30) mmol/L Anion Gap 10 mmol/L BUN 15 (9-20) mg/dL Creatinine 0.87 (0.66-1.25) mg/dL Est GFR (CKD-EPI)AfAm >90 (>60 ml/min/1.73 sqM) Est GFR (CKD-EPI)NonAf 82 (>60 ml/min/1.73 sqM) Glucose 112 H (74-99) mg/dL Calcium 9.6 (8.4-10.2) mg/dL Magnesium 2.0 (1.6-2.3) mg/dL Total Bilirubin 0.5 (0.2-1.3) mg/dL AST 43 (17-59) U/L ALT 38 (21-72) U/L Alkaline Phosphatase 166 H (38-126) U/L Total Creatine Kinase 85 (55-170) U/L CK-MB (CK-2) 1.0 (0.0-2.4) ng/mL CK-MB (CK-2) Rel Index 1.2 Troponin I 0.046 H* (0.000-0.034) ng/mL NT-Pro-B Natriuret Pep pg/mL Total Protein 6.7 (6.3-8.2) g/dL Albumin 3.6 (3.5-5.0) g/dL 01/10/18 01/10/18 Range/Units 15:25 15:25 WBC (3.8-10.6) k/uL RBC (4.30-5.90) m/uL Hgb (13.0-17.5) gm/dL Hct (39.0-53.0) % MCV (80.0-100.0) fL MCH (25.0-35.0) pg MCHC (31.0-37.0) g/dL RDW (11.5-15.5) % Plt Count (150-450) k/uL Neutrophils % % Lymphocytes % % Monocytes % % Eosinophils % % Basophils % % Neutrophils # (1.3-7.7) k/uL Lymphocytes # (1.0-4.8) k/uL Monocytes # (0-1.0) k/uL Eosinophils # (0-0.7) k/uL Basophils # (0-0.2) k/uL Macrocytosis PT 11.0 (9.0-12.0) sec INR 1.1 (<1.2) APTT 26.7 (22.0-30.0) sec Sodium (137-145) mmol/L Potassium (3.5-5.1) mmol/L Chloride (98-107) mmol/L Carbon Dioxide (22-30) mmol/L Anion Gap mmol/L BUN (9-20) mg/dL Creatinine (0.66-1.25) mg/dL Est GFR (CKD-EPI)AfAm (>60 ml/min/1.73 sqM) Est GFR (CKD-EPI)NonAf (>60 ml/min/1.73 sqM) Glucose (74-99) mg/dL Calcium (8.4-10.2) mg/dL Magnesium (1.6-2.3) mg/dL Total Bilirubin (0.2-1.3) mg/dL AST (17-59) U/L ALT (21-72) U/L Alkaline Phosphatase (38-126) U/L Total Creatine Kinase (55-170) U/L CK-MB (CK-2) (0.0-2.4) ng/mL CK-MB (CK-2) Rel Index Troponin I (0.000-0.034) ng/mL NT-Pro-B Natriuret Pep 6330 pg/mL Total Protein (6.3-8.2) g/dL Albumin (3.5-5.0) g/dL Disposition Clinical Impression: Atrial fibrillation, Atrial flutter, Atrial fibrillation with RVR Disposition: ADMITTED IP TO THIS HOSP Condition: Stable Is patient prescribed a controlled substance at d/c from ED?: No Referrals: Kayla Meyers DO [Primary Care Provider] - 1-2 days Decision to Admit Reason: Admit from EC Decision Date: 01/10/18 Decision Time: 17:02
[2018-01-10 15:43] LABS: ALT 38 U/L (21-72); AST 43 U/L (17-59); Albumin 3.6 g/dL (3.5-5.0); Alkaline Phosphatase 166 U/L (38-126); Anion Gap 10 mmol/L; Blood Urea Nitrogen 15 mg/dL (9-20); Calcium 9.6 mg/dL (8.4-10.2); Carbon Dioxide 25 mmol/L (22-30); Chloride 105 mmol/L (98-107); Glucose 112 mg/dL (74-99); Potassium 3.8 mmol/L (3.5-5.1); Sodium 140 mmol/L (137-145); Total Bilirubin 0.5 mg/dL (0.2-1.3); Total Protein 6.7 g/dL (6.3-8.2)
[2018-01-10 15:48] LABS: INR 1.1 (<1.2); Partial Thromboplastin Time 26.7 sec (22.0-30.0)
[2018-01-10] MEDS: DILTIAZEM 50 MG in SODIUM CHLORIDE 0.9% 40 ML IV ONE ×2 (15:50→20:42)
--- NOTE | 2018-01-10 16:02 | XR ---
EXAMINATION TYPE: XR chest 2V DATE OF EXAM: 01/10/2018 COMPARISON: Prior chest 01/08/2018 and CTA chest 01/08/2018 HISTORY: Dysrhythmia, chest pain TECHNIQUE: Frontal and lateral views of the chest are obtained. FINDINGS: There is no focal air space opacity, pleural effusion, or pneumothorax seen. The cardiac silhouette size is stable. Interstitium is increased. Aortic aneurysm is present. Prominence of the p ulmonary artery again noted. Prominent lung lines are compatible with COPD. The osseous structures ar e intact. IMPRESSION: Correlate to exclude pulmonary artery hypertension, there is emphysema, aortic aneurysm, coronary artery disease. Aortic dissection is not excluded.
[2018-01-10 16:12] LABS: Troponin I 0.046 ng/mL (0.000-0.034)
[2018-01-10] MEDS ORDERED: DILTIAZEM 5 MG/ML 5 ML VIAL IVP STA (16:16)
[2018-01-10] MEDS ORDERED: NALOXONE 0.4 MG/ML 1 ML VIAL IV PRN (16:54)
[2018-01-10 18:21] VITALS: BMI 22.1
[2018-01-10] MEDS ORDERED: NITROGLYCERIN SL TABS 0.4 MG TAB SUBLINGUAL PRN (18:52)
[2018-01-10] MEDS: NICOTINE 21MG/24HR PATCH TRANSDERM SCH (20:42)
[2018-01-10] MEDS: APIXABAN 2.5 MG TABLET PO SCH (20:53)
[2018-01-10] MEDS: ATORVASTATIN 20 MG TAB PO SCH (20:53)
[2018-01-10] MEDS: METOPROLOL TARTRATE 50 MG TAB PO SCH (20:53)
[2018-01-10] MEDS: ALPRAZolam 0.5 MG TAB PO PRN (21:07)
[2018-01-10 21:49] LABS: Troponin I 0.067 ng/mL (0.000-0.034)
[2018-01-11 03:10] LABS: Creatine Kinase MB 1.1 ng/mL (0.0-2.4)
[2018-01-11 03:11] LABS: Troponin I 0.076 ng/mL (0.000-0.034)
[2018-01-11] MEDS: LEVOTHYROXINE 112 MCG TAB PO SCH (07:42)
[2018-01-11] MEDS: MERCAPTOPURINE 50 MG TAB PO SCH (08:11)
[2018-01-11] MEDS: NICOTINE 21MG/24HR PATCH TRANSDERM SCH (08:11)
[2018-01-11] MEDS: APIXABAN 2.5 MG TABLET PO SCH ×2 (08:11→20:46)
[2018-01-11] MEDS: METOPROLOL TARTRATE 50 MG TAB PO SCH ×2 (08:11→20:46)
[2018-01-11] MEDS ORDERED: DEXTROSE 5% IN WATER 100 ML with AMIODARONE 150 MG IV ONE (09:39)
[2018-01-11] MEDS: AMIODARONE 200 MG TAB PO SCH ×2 (10:50→20:46)
--- NOTE | 2018-01-11 10:56 | P.HPIM ---
History of Present Illness H&P Date: 01/11/18 Chief Complaint: Chest tightness Oneil Arthur is a 77-year-old male who presented to [facility] emergency room with a chief complaint of elevated heart rate, patient states that he also had some chest tightness, he denies any significant chest pain he states that his discomfort would draped on 2-3 on a scale from 1-10, he denies any radiation of his chest pain there was no diaphoresis no nausea or vomiting. Patient was recently admitted to [facility] with atrial fibrillation and rapid ventricular response he was placed on IV Cardizem and within few hours he regained normal sinus rhythm, he was evaluated by cardiology and was cleared for discharge, he was started on metoprolol 50 mg twice daily and Eliquis, patient noticed that his heart rate was fast again he contacted the cardiology office and was told to return to emergency room. Patient also has a known history of ascending aortic aneurysm measuring 4.1 cm and descending aortic aneurysm measuring 4.9 cm. He is followed by vascular surgeon at [facility]. 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,AUTOIMMUNE HEPATITIS, COLON POLYPS, rt elbow bursa , dysphagia, rt carotid artery blocked Last Myocardial Infarction Date:: UNK History of Any Multi-Drug Resistant Organisms: None Reported Past Surgical History: Cholecystectomy Additional Past Surgical History / Comment(s): ABDOMINAL AORTIC ANEURYSM REPAIR WITH STENTS,COLONOSCOPY,NHAN CATARACTS, lt carotid artery surgery Past Anesthesia/Blood Transfusion Reactions: No Reported Reaction Past Psychological History: No Psychological Hx Reported Smoking Status: Current every day smoker Past Alcohol Use History: None Reported Additional Past Alcohol Use History / Comment(s): STARTED SMOKING 1956 10 cigarettes/day Past Drug Use History: None Reported - Past Family History Mother Family Medical History: Cancer Additional Family Medical History / Comment(s): breast CA Father Additional Family Medical History / Comment(s): COLOSTOMY Daughter(s) Family Medical History: Deep Vein Thrombosis (DVT) Additional Family Medical History / Comment(s): HX FACTOR FIVE LEIDEN Medications and Allergies Home Medications Medication Instructions Recorded Confirmed Type ALPRAZolam [Xanax] 0.5 mg PO DAILY PRN 08/26/15 01/10/18 History Albuterol Sulfate [Proair Hfa] 1 - 2 puff INHALATION RT-Q6H PRN 08/26/15 History Mometasone/Formoterol [Dulera 200 2 puff INHALATION RT-DAILY PRN 08/26/15 History Mcg/5 Mcg Inhaler] Atorvastatin [Lipitor] 20 mg PO HS 12/25/16 01/10/18 History Mercaptopurine [Purinethol] 50 mg PO DAILY 12/25/16 01/10/18 History Levothyroxine Sodium [Synthroid] 112 mcg PO DAILY 01/08/18 01/10/18 History Apixaban [Eliquis] 5 mg PO BID #60 tab 01/09/18 01/10/18 Rx Metoprolol Tartrate [Lopressor] 50 mg PO BID tab 01/09/18 01/10/18 Rx Nitroglycerin Sl Tabs [Nitrostat] 0.4 mg SUBLINGUAL Q5M PRN 01/10/18 01/10/18 History Allergies Allergy/AdvReac Type Severity Reaction Status Date / Time codeine Allergy Unknown Verified 01/10/18 15:30 Physical Exam Vitals: Vital Signs Temp Pulse Pulse Resp BP BP Pulse Ox 01/11/18 08:00 97.2 F L 69 18 120/78 97 01/11/18 02:59 97.8 F 63 18 104/67 96 01/11/18 00:00 97.0 F L 68 17 115/62 97 01/10/18 20:00 98.3 F 96 17 143/78 96 01/10/18 18:55 97 F L 96 18 116/69 97 01/10/18 17:08 96 16 121/70 96 01/10/18 16:10 144 H 18 97/80 98 01/10/18 15:03 97.4 F L 145 H 20 123/72 96 Intake and Output 01/10/18 01/11/18 01/11/18 22:59 06:59 14:59 Intake Total 264.333 20 444 Output Total 400 Balance 264.333 -380 444 Intake: IV 20 Diltiazem 50 mg In Sodium 20 Chloride 0.9% 40 ml @ 5 MG/HR 5 mls/hr IV .Q10H ONE Rx#:[id number] Intake, IV Titration 24.333 Amount Diltiazem 50 mg In Sodium 24.333 Chloride 0.9% 40 ml @ 5 MG/HR 5 mls/hr IV .Q10H ONE Rx#:[id number] Oral 240 444 Output: Urine 400 Other: Voiding Method Urinal Urinal # Voids 0 1 1 # Bowel Movements 0 Weight 66.224 kg 68.1 kg In general patient is alert and oriented 3 in no apparent distress HEENT head normocephalic and atraumatic Neck is supple no JVD no goiter no lymphadenopathy Chest exam reveals a few scattered rhonchi no wheezing Cardiac exam reveals regular heart sounds S1 and S2 no gallops no murmurs Abdomen is soft nontender no organomegaly with normal bowel sounds Extremity exam reveals no edema no cyanosis or clubbing Results CBC & Chem 7: 01/10/18 15:25 01/10/18 15:25 Labs: Abnormal Lab Results - Last 24 Hours (Table) 01/10/18 01/10/18 01/10/18 Range/Units 15:25 15:25 15:25 RBC 3.87 L (4.30-5.90) m/uL Hgb 12.8 L (13.0-17.5) gm/dL Hct 38.6 L (39.0-53.0) % RDW 15.7 H (11.5-15.5) % Lymphocytes # 0.9 L (1.0-4.8) k/uL Glucose 112 H (74-99) mg/dL Alkaline Phosphatase 166 H (38-126) U/L Troponin I 0.046 H* (0.000-0.034) ng/mL 01/10/18 01/11/18 Range/Units 21:01 02:23 RBC (4.30-5.90) m/uL Hgb (13.0-17.5) gm/dL Hct (39.0-53.0) % RDW (11.5-15.5) % Lymphocytes # (1.0-4.8) k/uL Glucose (74-99) mg/dL Alkaline Phosphatase (38-126) U/L Troponin I 0.067 H* 0.076 H* (0.000-0.034) ng/mL Thrombosis Risk Factor Assmnt - Choose All That Apply Each Factor Represents 1 point: Abnormal pulmonary function (COPD) Each Risk Factor Represents 3 Points: Age 75 years or older, History of DVT/PE Thrombosis Risk Factor Assessment Total Risk Factor Score: 7 Thrombosis Risk Factor Assessment Level: High Risk Assessment and Plan Plan: #1 recurrent episodes of atrial fibrillation with rapid ventricular response, patient was started on IV Cardizem in the emergency room, and currently he is back in normal sinus rhythm. #2 mild elevation in troponin level #3 ascending and descending aortic aneurysms. #4 underlying history of COPD stable at this time #5 underlying history of hypothyroidism, TSH checked on 01/08/2018 and was normal at 3.31 #6 underlying history of peripheral vascular disease patient was maintained on Plavix, this was discontinued last admission when patient was started on liquids #7 tobacco abuse patient was counseled again in regard to smoking cessation. #8 underlying history of hyperlipidemia At this time patient is admitted to telemetry floor, he was started on IV Cardizem in the emergency room and he is back in normal sinus rhythm at this time Cardiology consultation is requested Will follow closely
--- NOTE | 2018-01-11 12:32 | ECHOF ---
Referral Reason:LV function MEASUREMENTS -------- HEIGHT: 172.7 cm WEIGHT: 68.0 kg BP: 120/78 RVIDd: 3.3 cm (< 3.3) IVSd: 1.2 cm (0.6 - 1.1) LVIDd: 4.7 cm (3.9 - 5.3) LVPWd: 1.3 cm (0.6 - 1.1) IVSs: 1.6 cm LVIDs: 3.6 cm LVPWs: 1.7 cm LA Diam: 3.7 cm (2.7 - 3.8) LAESV Index (A-L): 48.43 ml/m Ao Diam: 3.3 cm (2.0 - 3.7) AV Cusp: 1.9 cm (1.5 - 2.6) MV EXCURSION: 18.221 mm (> 18.000) MV EF SLOPE: 43 mm/s (70 - 150) EPSS: 1.3 cm MV E Thang: 1.11 m/s MV DecT: 162 ms MV A Thang: 0.57 m/s MV E/A Ratio: 1.93 AR PHT: 1668 ms RAP: 5.00 mmHg RVSP: 38.18 mmHg FINDINGS -------- Sinus rhythm with extra systolic beats. This was a technically good study. The left ventricular size is normal. There is mild concentric left ventricular hypertrophy. Overa ll left ventricular systolic function is moderate-severely impaired with, an EF between 30 - 35 %. The right ventricle is mildly enlarged. LA is severely dilated >40 ml/m2 The right atrium is normal in size. There is mild aortic valve sclerosis. There is mild aortic regurgitation. The mitral valve leaflets are mildly thickened. Mild mitral annular calcification present. Mild m itral regurgitation is present. Mild tricuspid regurgitation present. There is mild pulmonary hypertension. The right ventricular systolic pressure, as measured by Doppler, is 38.18mmHg. The pulmonic valve was not well visualized. The aortic root size is normal. Normal inferior vena cava with normal inspiratory collapse consistent with estimated right atrial pre ssure of 5 mmHg. The inferior vena cava is mildly dilated. There is no pericardial effusion. CONCLUSIONS -------- 1. Sinus rhythm with extra systolic beats. 2. This was a technically good study. 3. The left ventricular size is normal. 4. Overall left ventricular systolic function is moderate-severely impaired with, an EF between 30 - 35 %. 5. The right ventricle is mildly enlarged. 6. LA is severely dilated >40 ml/m2 7. The right atrium is normal in size. 8. There is mild aortic valve sclerosis. 9. There is mild aortic regurgitation. 10. The mitral valve leaflets are mildly thickened. 11. Mild mitral annular calcification present. 12. Mild mitral regurgitation is present. 13. Mild tricuspid regurgitation present. 14. There is mild pulmonary hypertension. 15. The right ventricular systolic pressure, as measured by Doppler, is 38.18mmHg. 16. The pulmonic valve was not well visualized. 17. The aortic root size is normal. 18. Normal inferior vena cava with normal inspiratory collapse consistent with estimated right atrial pressure of 5 mmHg. 19. The inferior vena cava is mildly dilated. 20. There is no pericardial effusion. RN FAMILY: Charley Melendrez RDCS
--- NOTE | 2018-01-11 15:18 | CONS ---
CONSULTATION Please refer to my recent consultation on Mr. Oneil Maya when he presented to the hospital with atrial fibrillation rapid rate, and that converted to sinus rhythm. This gentleman has a history of COPD, deep vein thrombosis and abdominal and thoracic aortic aneurysm. These aneurysms have been stable, have not been an issue. He is status post cholecystectomy. He came into the hospital with atrial fibrillation rapid rate, converted to sinus rhythm. He was sent home on medical therapy with Eliquis 2.5 mg b.i.d. He went home and had a rapid heart rate of up to 140, came into the hospital. After arrival he again converted to sinus rhythm. He is doing better. He denies chest pain, stable, shortness of breath. He continues to smoke; does not wish to quit smoking. MEDICATIONS AT HOME: 1. Eliquis, which I advise to be at 2.5 mg b.i.d., given his aneurysm. 2. Lopressor 50 mg b.i.d. 3. He also has some autoimmune hepatitis and takes mercaptopurine. 4. Lipitor 40 mg daily. 5. Albuterol inhaler. ALLERGIES: CODEINE. PHYSICAL EXAMINATION: Blood pressure 130/70, pulse rate 60 per minute, regular. HEENT: Unremarkable. Fundus was not examined by me. Neck is supple. There is JVD of 1 cm. No carotid bruit. Heart exam reveals S1, S2 with a short systolic murmur. Lungs are clear. Abdomen is soft. Lower extremities reveal diminished pulses. Central nervous system is normal. EKG on arrival revealed atrial flutter with a 2:1 block. IMPRESSION: 1. Paroxysmal atrial flutter/fibrillation syndrome. 2. Smoking and chronic obstructive pulmonary disease. 3. History of abdominal and thoracic aortic aneurysm, both of which are stable, being followed non-invasively. 4. Hypothyroidism. RECOMMENDATION: I am recommending that we resume apixaban at 2.5 mg b.i.d., add beta deandra metoprolol tartrate at 50 mg b.i.d. Continue his other medications. Obtain echocardiogram to assess LV function. We will try a different combination in the form of amiodarone 200 mg b.i.d. to prevent his arrhythmia and also give him a bolus of amiodarone 150 mg, keep him overnight and see how he does. I also requested an echocardiogram that was performed today, which revealed that the left ventricle is of a normal size with ejection fraction 35% with global decrease in contractility; no other significant valvular disease was noted. IMPRESSION: 1. Probable non-ischemic cardiomyopathy, although he has not had a cardiac catheterization. 2. Paroxysmal symptomatic atrial flutter/fibrillation, now in sinus rhythm. 3. Smoking and chronic obstructive pulmonary disease. 4. History of hypertension. RECOMMENDATIONS: I am recommending IV amiodarone bolus 150 mg followed by 200 mg b.i.d., continue his beta deandra and also Eliquis. Increase activity and keep him overnight. If he has no further symptoms, he can be discharged tomorrow. I discussed my thoughts in detail with the patient. Thank you very much for the consult. HOWIE / EDWARD: [id number] /
[2018-01-11] MEDS: ATORVASTATIN 20 MG TAB PO SCH (20:46)
[2018-01-11] MEDS: ALPRAZolam 0.5 MG TAB PO PRN (21:28)
[2018-01-11 22:27] VITALS: RESP 18
[2018-01-11] MEDS ORDERED: CALCIUM CARBONATE 500 MG CHEWABLE PO PRN (22:46)
[2018-01-12] MEDS: LEVOTHYROXINE 112 MCG TAB PO SCH (06:41)
[2018-01-12] MEDS: MERCAPTOPURINE 50 MG TAB PO SCH (09:17)
[2018-01-12] MEDS: NICOTINE 21MG/24HR PATCH TRANSDERM SCH (09:17)
[2018-01-12] MEDS: AMIODARONE 200 MG TAB PO SCH (09:17)
[2018-01-12] MEDS: APIXABAN 2.5 MG TABLET PO SCH (09:17)
[2018-01-12] MEDS: METOPROLOL TARTRATE 50 MG TAB PO SCH (09:17)
[2018-01-12 11:58] VITALS: BP 102/65; PULSE 55; TEMP 97.2
--- NOTE | 2018-01-12 13:52 | P.DS ---
Providers Date of admission: 01/10/18 16:54 Expected date of discharge: 01/12/18 Attending physician: Juan Hollins Consults: 01/10/18 16:55 Consult Physician Routine Consulting Provider: Jose Miguel Patel Consult Reason/Comments: A-flutter, rvr Do you want consulting provider notified?: Yes Primary care physician: [facility] Course: Diagnosis on discharge: #1 recurrent episodes of atrial fibrillation with rapid ventricular response, patient was started on IV Cardizem in the emergency room, and currently he is back in normal sinus rhythm. Patient was evaluated by cardiology and amiodarone was added to regimen patient remains in normal sinus rhythm at the time of discharge #2 mild elevation in troponin level #3 ascending and descending aortic aneurysms. #4 underlying history of COPD stable at this time #5 underlying history of hypothyroidism, TSH checked on 01/08/2018 and was normal at 3.31 #6 underlying history of peripheral vascular disease patient was maintained on Plavix, this was discontinued last admission when patient was started on liquids #7 tobacco abuse patient was counseled again in regard to smoking cessation. #8 underlying history of hyperlipidemia Hospital course: Oneil Arthur is a 77-year-old male who presented to [facility] emergency room with a chief complaint of elevated heart rate, patient states that he also had some chest tightness, he denies any significant chest pain he states that his discomfort would draped on 2-3 on a scale from 1-10, he denies any radiation of his chest pain there was no diaphoresis no nausea or vomiting. Patient was recently admitted to [facility] with atrial fibrillation and rapid ventricular response he was placed on IV Cardizem and within few hours he regained normal sinus rhythm, he was evaluated by cardiology and was cleared for discharge, he was started on metoprolol 50 mg twice daily and Eliquis, patient noticed that his heart rate was fast again he contacted the cardiology office and was told to return to emergency room. Patient also has a known history of ascending aortic aneurysm measuring 4.1 cm and descending aortic aneurysm measuring 4.9 cm. He is followed by vascular surgeon at [facility]. Patient was admitted to telemetry floor he had slight elevation in troponin levels, he was evaluated by cardiology, and decision was made to proceed with cardiac catheterization as outpatient. Patient regained normal sinus rhythm and amiodarone was added to his regimen. Patient Condition at Discharge: Stable Plan - Discharge Summary Discharge Rx Participant: No New Discharge Prescriptions: New Amiodarone [Cordarone] 200 mg PO BID tab Nicotine 21Mg/24Hr Patch [Habitrol] 1 patch TRANSDERM DAILY patch Continue ALPRAZolam [Xanax] 0.5 mg PO DAILY PRN PRN Reason: Anxiety Mometasone/Formoterol [Dulera 200 Mcg/5 Mcg Inhaler] 2 puff INHALATION RT- DAILY PRN PRN Reason: Shortness Of Breath Albuterol Sulfate [Proair Hfa] 1 - 2 puff INHALATION RT-Q6H PRN PRN Reason: Shortness Of Breath Atorvastatin [Lipitor] 20 mg PO HS Mercaptopurine [Purinethol] 50 mg PO DAILY Levothyroxine Sodium [Synthroid] 112 mcg PO DAILY Apixaban [Eliquis] 5 mg PO BID #60 tab Metoprolol Tartrate [Lopressor] 50 mg PO BID tab Nitroglycerin Sl Tabs [Nitrostat] 0.4 mg SUBLINGUAL Q5M PRN PRN Reason: Chest Pain Discharge Medication List ALPRAZolam [Xanax] 0.5 mg PO DAILY PRN 08/26/15 [History] Albuterol Sulfate [Proair Hfa] 1 - 2 puff INHALATION RT-Q6H PRN 08/26/15 [ History] Mometasone/Formoterol [Dulera 200 Mcg/5 Mcg Inhaler] 2 puff INHALATION RT-DAILY PRN 08/26/15 [History] Atorvastatin [Lipitor] 20 mg PO HS 12/25/16 [History] Mercaptopurine [Purinethol] 50 mg PO DAILY 12/25/16 [History] Levothyroxine Sodium [Synthroid] 112 mcg PO DAILY 01/08/18 [History] Apixaban [Eliquis] 5 mg PO BID #60 tab 01/09/18 [Rx] Metoprolol Tartrate [Lopressor] 50 mg PO BID tab 01/09/18 [Rx] Nitroglycerin Sl Tabs [Nitrostat] 0.4 mg SUBLINGUAL Q5M PRN 01/10/18 [History] Amiodarone [Cordarone] 200 mg PO BID tab 01/12/18 [Rx] Nicotine 21Mg/24Hr Patch [Habitrol] 1 patch TRANSDERM DAILY patch 01/12/18 [Rx] Follow up Appointment(s)/Referral(s): Jose Miguel Patel MD [STAFF PHYSICIAN] - 1 Week Kayla Meyers DO [Primary Care Provider] - 1-2 days
--- NOTE | 2018-01-12 21:36 | PN ---
PROGRESS NOTE Mr. Maya is in sinus rhythm, resting comfortably. Denies chest pain, stable shortness of breath. Ambulating without symptoms. Vital signs are stable. S1, S2 heard normally. Short systolic murmur noted. Lungs are clear. Abdomen is soft, nontender. Lower extremities reveal normal pulses. No edema. Central nervous system is normal. I gave him a bolus of amiodarone and placed him on 200 mg b.i.d. I am recommending he can be discharged beta deandra and amiodarone along with Eliquis 2.5 mg b.i.d. and I will see him in the office in 1 week. I have placed him on 2.5 mg instead of 5 mg because of his thoracic and previous abdominal aortic aneurysm. Prognosis remains guarded. I have counseled the patient regarding the need to quit smoking and he is going to try to do this, seems to be more motivated today. The patient can be discharged today and discharge instructions given and prescriptions were also given. MMODL / IJN: [id number] /
== END 2018-01-12 14:17 | disposition home or self-care (01) | DRG 310 ==
LOC: EC 14:59 → 6SEL 16:54
PROVIDERS: ADMIT Internal Medicine; ATTEND Internal Medicine
DX: I48.0 Paroxysmal atrial fibrillation (principal); Z79.01 Long term (current) use of anticoagulants; I48.92 Unspecified atrial flutter; E03.9 Hypothyroidism, unspecified; E78.5 Hyperlipidemia, unspecified; F17.200 Nicotine dependence, unspecified, uncomplicated; I10 Essential (primary) hypertension; I25.2 Old myocardial infarction; I42.9 Cardiomyopathy, unspecified; I71.9 Aortic aneurysm of unspecified site, without rupture; I73.9 Peripheral vascular disease, unspecified; J44.9 Chronic obstructive pulmonary disease, unspecified; K75.4 Autoimmune hepatitis; Z79.899 Other long term (current) drug therapy; Z80.3 Family history of malignant neoplasm of breast; Z85.21 Personal history of malignant neoplasm of larynx; Z86.010 Personal history of colon polyps; R74.8 Abnormal levels of other serum enzymes; Z92.3 Personal history of irradiation; Z83.2 Family history of diseases of the blood and blood-forming organs and certain disorders involving the immune mechanism; Z86.718 Personal history of other venous thrombosis and embolism; Z79.890 Hormone replacement therapy; Z98.42 Cataract extraction status, left eye; Z98.41 Cataract extraction status, right eye; Z88.5 Allergy status to narcotic agent
CPT/HCPCS: 36415; 71046; 80053; 82550; 82553; 83735; 83880; 84484; 85025; 85610; 85730; 93005; 93306; 94760; 96365; 96366; 96376; 99285

== ENCOUNTER → 2018-02-08 | Outpatient (CLI) | payer MEDICARE ==
[2018-02-08 08:33] LABS: HCT 38.3 % (39.0-53.0); HGB 12.4 gm/dL (13.0-17.5); MCH 33.9 pg (25.0-35.0); MCHC 32.5 g/dL (31.0-37.0); MCV 104.3 fL (80.0-100.0); Macrocytosis Moderate; Mean Platelet Volume 7.1; Platelet Count 204 k/uL (150-450); RBC 3.67 m/uL (4.30-5.90)
[2018-02-08 09:06] LABS: Potassium 4.7 mmol/L (3.5-5.1)
== END | disposition home or self-care (01) ==
LOC: LABWHC1 07:49
PROVIDERS: ATTEND Internal Medicine Interventional Cardiology
DX: Z01.812 Encounter for preprocedural laboratory examination (principal); I42.9 Cardiomyopathy, unspecified
CPT/HCPCS: 36415; 80051; 82565; 84520; 85027

== ENCOUNTER → 2018-02-22 | Outpatient (CLI) | payer MEDICARE ==
[2018-02-22 13:16] LABS: HCT 36.4 % (39.0-53.0); HGB 12.1 gm/dL (13.0-17.5); MCH 34.2 pg (25.0-35.0); MCHC 33.2 g/dL (31.0-37.0); Macrocytosis Slight; Mean Platelet Volume 7.3; Platelet Count 140 k/uL (150-450); RBC 3.53 m/uL (4.30-5.90); RDW 15.5 % (11.5-15.5); WBC 4.4 k/uL (3.8-10.6)
[2018-02-22 13:32] LABS: Potassium 4.2 mmol/L (3.5-5.1)
== END | disposition home or self-care (01) ==
LOC: LABPAT 12:05
PROVIDERS: ATTEND Internal Medicine Interventional Cardiology
DX: Z01.812 Encounter for preprocedural laboratory examination (principal); I25.10 Atherosclerotic heart disease of native coronary artery without angina pectoris
CPT/HCPCS: 80051; 82565; 84520; 85027

== ENCOUNTER 2018-02-26 06:02 | Day surgery (SDC) | payer MEDICARE ==
[2018-02-26] MEDS ORDERED: ALPRAZolam 0.5 MG TAB PO PRN (06:17)
[2018-02-26] MEDS ORDERED: ATORVASTATIN 80 MG TAB PO STA (06:17)
[2018-02-26] MEDS ORDERED: ALPRAZolam 0.25 MG TAB PO PRN ×2 (06:17→08:42)
[2018-02-26] MEDS ORDERED: ASPIRIN 325 MG TAB PO STA (06:17)
[2018-02-26] MEDS ORDERED: NITROGLYCERIN SL TABS 0.4 MG TAB SUBLINGUAL PRN ×3 (06:17→08:42)
[2018-02-26] MEDS ORDERED: SODIUM CHLORIDE 0.9% 1,000 ML in EMPTY BAG 1 BAG IV ONE (06:17)
[2018-02-26] MEDS ORDERED: SODIUM CHLORIDE 0.9% 1,000 ML IV ONE (06:45)
[2018-02-26] MEDS ORDERED: VERAPAMIL 2.5 MG/ML 2 ML AMP ONE (07:12)
[2018-02-26] MEDS ORDERED: MIDAZOLAM 2 MG/2 ML VIAL ONE (07:12)
[2018-02-26] MEDS ORDERED: diphenhydrAMINE 50 MG/ML 1 ML VIAL ONE (07:21)
[2018-02-26] MEDS ORDERED: MIDAZOLAM 2 MG/2 ML VIAL IV ONE (07:26)
[2018-02-26] MEDS ORDERED: diphenhydrAMINE 50 MG/ML 1 ML VIAL IVP ONE (07:26)
[2018-02-26] MEDS ORDERED: LIDOCAINE 2% SYG (PF) 100 MG/5 ML MISCELLANE ONE (07:30)
[2018-02-26] MEDS ORDERED: HEPARIN SODIUM 1,000 UN/ML (10ML VL) ONE (07:31)
[2018-02-26] MEDS: VERAPAMIL SYRINGE (5 MG/10 ML) INTRAARTER ONE ×2 (07:32→08:24)
[2018-02-26] MEDS ORDERED: HEPARIN SODIUM 1,000 UN/ML (10ML VL) IV ONE (07:34)
[2018-02-26] MEDS ORDERED: IOPAMIDOL-370 100ML BTL INJ ONE ×2 (07:50→08:14)
[2018-02-26] MEDS ORDERED: BIVALIRUDIN BOLUS 250 MG/50 ML IV ONE (07:58)
[2018-02-26] MEDS ORDERED: BIVALIRUDIN 250 MG in SODIUM CHLORIDE 0.9% 50 ML IV ONE (07:59)
[2018-02-26] MEDS ORDERED: MORPHINE SULFATE 4 MG/ML SYRINGE ONE (08:06)
[2018-02-26] MEDS ORDERED: NITROGLYCERIN 1000MCG/10ML SYRINGE INTRACORON ONE (08:14)
[2018-02-26] MEDS ORDERED: CLOPIDOGREL 75 MG TAB ONE (08:17)
[2018-02-26] MEDS ORDERED: CLOPIDOGREL 75 MG TAB PO ONE (08:20)
[2018-02-26] MEDS ORDERED: ATROPINE SULFATE 0.1 MG/ML 10ML SYRINGE IV PRN (08:33)
[2018-02-26] MEDS ORDERED: RX INFO: IV CONTRAST WAS GIVEN 1 EACH MISC MISCELLANE PRN (08:33)
[2018-02-26] MEDS ORDERED: MAG HYDROX/AL HYDROX/SIMETH 30 ML CUP PO PRN (08:33)
[2018-02-26] MEDS ORDERED: ZOLPIDEM 5 MG TAB PO PRN (08:33)
[2018-02-26] MEDS: SODIUM CHLORIDE 0.9% 1,000 ML IV SCH ×2 (08:40→22:23)
[2018-02-26] MEDS ORDERED: ALBUTEROL NEB (CONC) 2.5 MG/0.5 ML INHALATION PRN (08:42)
[2018-02-26] MEDS ORDERED: ALBUTEROL NEBULIZED 2.5 MG/3 ML INHALATION PRN (08:42)
--- NOTE | 2018-02-26 10:11 | CC ---
CARDIAC CATHETERIZATION REPORT DATE OF SERVICE: .02/26/2018 PROCEDURE: 1. Left heart catheterization and coronary angiography. 2. PTCA and stenting of proximal LAD with a drug-eluting stent. 3. Procedure performed from right radial approach. Moderate conscious sedation time was 56 minutes. CLINICAL INFORMATION: Mr. Oneil Arthur is a 77-year-old gentleman who smokes heavily, has COPD. He is known to have a total RCA occlusion that was as noted in 2004. He was recently seen by me in the hospital when he presented with CHF and atrial fibrillation. His atrial fibrillation was addressed with pharmacological conversion. He remained in sinus rhythm. He has been on amiodarone. However, given his significant LV dysfunction and heart failure, known CAD, was advised coronary angiography to assess progression of CAD. His additional comorbid conditions include an abdominal aortic aneurysm with thoracic descending aortic aneurysm, previous known right carotid occlusion and also moderate disease in the left carotid system. He is smoking, COPD and also some peripheral arterial disease. He was advised cardiac cath from the right radial approach and brought in for the procedure electively after due discussion regarding risks, benefits, and options. PROCEDURE NOTE: Under local anesthesia and strict aseptic precautions, a 6-Guyanese introducer was placed in the right radial artery. Using an Ultimate 1 catheter, I performed selective coronary angiography of the left coronary system and used a standard right Leanna catheter for the right coronary artery. A pigtail catheter was used to check LV pressure but LV gram was not performed. I noted that the patient had a total occlusion of RCA and significant lesion in the proximal LAD of 80% was advised intervention in the same setting. Previous discussions with the patient indicated that he did not want to have open-heart surgery on this. It was not an emergency situation. CORONARY ANGIOGRAPHY FINDINGS: The left ventricle end-diastolic pressure was 12 mmHg without any gradient across the aortic valve. RIGHT CORONARY ARTERY: This vessel is totally occluded and seen as a stump without much antegrade flow. RCA is very well collateralized from the left system. LEFT MAIN CORONARY ARTERY: This is a long patent vessel free of significant disease and trifurcates into LAD, circumflex and ramus intermedius. Left main itself has mild to moderate calcification but no significant disease is noted. LEFT ANTERIOR DESCENDING CORONARY ARTERY: This vessel has a proximal lesion of about 80%, eccentric calcified, located just after the origin of LAD and beyond it the caliber of the vessel improves and extends all the way to the apex, supplies a sizable amount of myocardium giving off several septal and diagonal branches. The rest of the LAD has mild calcification but no significant disease and supplies a sizable amount of myocardium. The branches of LAD also have minor irregularities but no significant disease is noted. THE RAMUS INTERMEDIUS: This is a very a fair-caliber vessel that runs laterally, has minor irregularities, moderate calcification in the proximal 1/3, has minor irregularities. No significant disease in the ramus is noted. LEFT POSTERIOR CIRCUMFLEX CORONARY ARTERY: Technically nondominant vessel gives off a groove branch and one posterolateral branch that runs in the OM direction, has minor irregularities of no more than 20%-30%. COLLATERAL CIRCULATION: There is a rich network of collaterals coming from the LAD septal system as well as the circumflex system opacifying the distal branches of RCA. The main trunk however is not opacified. RCA disease is known to be a total occlusion since 2004. RECOMMENDATION: I recommend intervention of the LAD and proceeded to perform this in the same setting. PCID; I used a Voda 4.0 catheter to cannulate the left coronary artery. A run-through wire was used to cross the lesion. Predilatation was performed with a 2.5 caliber 8 mm long NC Trek balloon at 10 atmospheres. I then deployed a 2.75 caliber 8 mm long Xience stent at 12 atmospheres. The patient had chest pain and anterior ST elevation. Excellent angiographic result was achieved without complication. Patient received Angiomax bolus and infusion. She also received 600 mg of Plavix orally. The sheath was then taken out and a TR band applied as per protocol and saturation of the fingers of the right hand was 94%. Excellent angiographic result without complication was achieved and results were discussed with the patient and family. I expect he will be discharged tomorrow. Plan will be to discharge him on aspirin and Plavix alone and I will then after a week switch him to a combination of Plavix and Xarelto. This was explained to the patient and family. I expect that he will be discharged tomorrow if he remains stable. The patient will also be advised a nicotine patch to help with smoking cessation. MMODL / IJN: [id number] /
--- NOTE | 2018-02-26 10:11 | LTR ---
DATE OF SERVICE: 02/26/2018 RE: Jerson Riggs Dear Dr. Meyers; Thank you for allowing me to participate n the care of . Oneil Arthur. Please find enclosed my detailed cardiac cath report for you records. I am pleased to report that his proximal LAD was addressed with an excellent angiographic result with a drug- eluting stent. I expect he will be discharged tomorrow if he remains stable and he should be on a combination of Xarelto/Eliquis and Plavix without interruption for a year. Thank you for referral and please call for questions. With kindest regards, sincerely yours, MD ANTHONY OrtegaL / HENRIN: [id number] /
[2018-02-26] MEDS ORDERED: METOPROLOL TARTRATE 25 MG TAB PO STA (13:47)
[2018-02-26] MEDS: AMIODARONE 200 MG TAB PO SCH (14:39)
[2018-02-26] MEDS: ASPIRIN 81 MG PO SCH (15:53)
[2018-02-26] MEDS: LOSARTAN 25 MG TAB PO SCH (15:54)
[2018-02-26 16:06] VITALS: BMI 24.5
[2018-02-26] MEDS: SYMBICORT 160-4.5 MCG INHALER INHALATION SCH (20:21)
[2018-02-26] MEDS ORDERED: ATORVASTATIN 40 MG TAB PO SCH (21:00)
[2018-02-26] MEDS ORDERED: METOPROLOL TARTRATE 25 MG TAB PO SCH (21:00)
[2018-02-26] MEDS: NICOTINE 14MG/24HR PATCH TRANSDERM SCH (22:23)
[2018-02-27] MEDS ORDERED: ALPRAZolam 0.5 MG TAB ONE (02:30)
[2018-02-27 06:07] LABS: Anisocytosis Slight; Basophils % (A) 1 %; Eosinophils # (A) 0.1 k/uL (0-0.7); Eosinophils % (A) 2 %; HCT 37.5 % (39.0-53.0); HGB 12.2 gm/dL (13.0-17.5); Lymphocytes # (A) 0.8 k/uL (1.0-4.8); Lymphocytes % (A) 14 %; MCH 34.2 pg (25.0-35.0); MCHC 32.6 g/dL (31.0-37.0); MCV 104.7 fL (80.0-100.0); Macrocytosis Moderate; Mean Platelet Volume 7.4; Monocytes # (A) 0.4 k/uL (0-1.0); Monocytes % (A) 7 %; Neutrophils # (A) 3.9 k/uL (1.3-7.7); Neutrophils % (A) 74 %; Platelet Count 130 k/uL (150-450); RBC 3.58 m/uL (4.30-5.90); RDW 16.9 % (11.5-15.5); WBC 5.3 k/uL (3.8-10.6)
[2018-02-27 06:25] LABS: Calcium 8.8 mg/dL (8.4-10.2); Potassium 4.5 mmol/L (3.5-5.1)
[2018-02-27] MEDS ORDERED: LEVOTHYROXINE 112 MCG TAB PO SCH (06:30)
[2018-02-27 07:51] VITALS: BP 99/54; PULSE 52; RESP 18; TEMP 97.4
[2018-02-27] MEDS: NICOTINE 14MG/24HR PATCH TRANSDERM SCH (07:57)
[2018-02-27] MEDS: LOSARTAN 25 MG TAB PO SCH (08:38)
[2018-02-27] MEDS: ASPIRIN 81 MG PO SCH (08:38)
[2018-02-27] MEDS: AMIODARONE 200 MG TAB PO SCH (08:38)
[2018-02-27] MEDS ORDERED: CLOPIDOGREL 75 MG TAB PO SCH (09:00)
[2018-02-27] MEDS: SYMBICORT 160-4.5 MCG INHALER INHALATION SCH (09:35)
--- NOTE | 2018-02-27 09:54 | DS ---
DISCHARGE SUMMARY DATE OF ADMISSION: 02/26/2018 DATE OF DISCHARGE: 02/27/2018 DIAGNOSES: 1. Unstable angina. 2. Ischemic cardiomyopathy. 3. Paroxysmal symptomatic atrial fibrillation. 4. Chronic tobacco abuse. PROCEDURES PERFORMED: Left heart catheterization, coronary angiography and stenting of proximal LAD with a drug-eluting stent. Mr. Oneil Arthur is a patient who was seen by me recently when he presented with CHF and atrial fib. After stabilizing him, he was advised coronary angiography given the fact he has known CAD, prior RCA occlusion with collateralization from left system. He had significant progression of LV dysfunction. Risks, benefits, and options were explained to the patient and and patient was brought in for the procedure electively. The left heart catheterization, coronary angiography and stenting of proximal LAD was performed from right radial approach uneventfully. Patient has a history of a descending thoracic and also infrarenal abdominal aortic aneurysm which is less than 5 cm. PCI of LAD was performed uneventfully. Postprocedure course was uneventful. This morning, patient is asymptomatic. Blood pressure is 116/70, pulse rate is 62 per minute, sinus. EKG and labs are unremarkable. Platelet count is about 130 and prior to procedure, it was 140. He is asymptomatic, ambulating without symptoms. His right radial cath site is clean and dry. Physical exam revealed no JVD, S1, S2 heard normally, short systolic murmur at the base is audible, second heart sound is preserved. Lungs are clear. Abdomen is soft, nontender. Lower extremities reveal palpable pulses. No edema. Central nervous system is normal. Discharge instructions regarding activity, diet, medications, and appointment were given and patient was counseled regarding the importance of taking aspirin and Plavix together and for now we will hold Eliquis and next week I will resume the combination of Eliquis/Xarelto and Plavix. For now, he will be discharged on aspirin and Plavix only and this was explained and discussed with the patient in great detail and prescriptions have been provided. He will be discharged today and I will see him in the office on Sunday at 8:45 am. HOWIE / EDWARD: [id number] /
[2018-02-27] MEDS ORDERED: MERCAPTOPURINE 50 MG TAB PO SCH (21:00)
== END 2018-02-27 09:14 | disposition home health service (06) ==
LOC: CATHCVL 06:02 → 6SEL 08:20 → CATHCVL 02-27 09:14
PROVIDERS: ATTEND Internal Medicine Interventional Cardiology
DX: I25.110 Atherosclerotic heart disease of native coronary artery with unstable angina pectoris (principal); I25.84 Coronary atherosclerosis due to calcified coronary lesion; I11.0 Hypertensive heart disease with heart failure; I50.9 Heart failure, unspecified; F17.200 Nicotine dependence, unspecified, uncomplicated; I25.5 Ischemic cardiomyopathy; I48.0 Paroxysmal atrial fibrillation; I71.4 Abdominal aortic aneurysm, without rupture; I71.2 Thoracic aortic aneurysm, without rupture; I65.23 Occlusion and stenosis of bilateral carotid arteries; K75.4 Autoimmune hepatitis; Z95.5 Presence of coronary angioplasty implant and graft; J44.9 Chronic obstructive pulmonary disease, unspecified; I73.9 Peripheral vascular disease, unspecified; Z79.01 Long term (current) use of anticoagulants; Z79.82 Long term (current) use of aspirin; Z79.890 Hormone replacement therapy; Z79.51 Long term (current) use of inhaled steroids; Z79.899 Other long term (current) drug therapy
CPT/HCPCS: 93458; 80048; 85025; C9600; C1887; C1769 ×2; C1725; C1874; C1894; S4990 ×2; J2250; J1200; J2001; J1644; J0583; Q9967

== ENCOUNTER → 2018-03-08 | Outpatient (CLI) | payer MEDICARE ==
--- NOTE | 2018-03-08 11:23 | CT ---
CT CHEST FOR PULMONARY EMBOLISM. EXAMINATION TYPE: CT angio chest DATE OF EXAM: 03/08/2018 INDICATION: Abnormal coagulation profile, dyspnea, history of COPD CT DLP: 227.9 mGycm, Automated exposure control for dose reduction was used. CONTRAST: Patient injected with 100 mL of Isovue 370. COMPARISON: 01/08/2018 TECHNIQUE: CT of the chest is performed on a spiral scan at 2 mm thick sections. Study is performed with intravenous contrast timed for evaluation for pulmonary embolism. This will limit additional po rtions of the evaluation. 3-D MIP images reconstructed by the technologist are reviewed on the compu ter in the coronal and sagittal planes. FINDINGS: No persistent filling defects are evident to suggest an acute pulmonary embolism. No mediastinal or hilar adenopathy enlarged by CT criteria is evident. The ascending aorta diameter at the level of the main pulmonary artery is 3.9 cm. The main pulmonary artery diameter at the bifur cation is 3.6 cm. Descending thoracic aorta is aneurysmal measuring 4.8 cm at the level of the left m ain pulmonary artery. The aorta above the diaphragm is 4.6 cm. Emphysematous changes are present. There is a 4 mm density in the anterior right middle lobe. Series 6 image 90. This was present previously. Lingular consolidation contains calcification likely present previously right fibrosis in the posterior lateral right lung base. Limited CT section through the upper abdomen are unremarkable. IMPRESSIONS: 1. No acute pulmonary embolism. 2. Descending thoracic aortic aneurysm, stable from December 2017. 3. Emphysematous changes. 4. Stable lung findings.
== END | disposition home or self-care (01) ==
LOC: RADCTMAIN 09:55
PROVIDERS: ATTEND Family Medicine
DX: I71.2 Thoracic aortic aneurysm, without rupture (principal); J43.9 Emphysema, unspecified
CPT/HCPCS: 82565; 84520; 71275; 36415; Q9967

== ENCOUNTER → 2018-12-03 | Outpatient (CLI) | payer MEDICARE | END | disposition home or self-care (01) | LOC: LABWHC1 10:28 | PROVIDERS: ATTEND Surgery | DX: I71.2 Thoracic aortic aneurysm, without rupture (principal); R54 Age-related physical debility | CPT/HCPCS: 36415; 82565; 84520 ==

== ENCOUNTER → 2018-12-06 | Outpatient (CLI) | payer MEDICARE ==
--- NOTE | 2018-12-06 16:33 | CT ---
EXAMINATION TYPE: CT angio chest DATE OF EXAM: 12/06/2018 COMPARISON: 03/08/2018 HISTORY: f/u aortic aneurysm CT DLP: 467.3 mGycm CONTRAST: CTA thoracic aorta with 3-D reconstruction is performed and with IV Contrast, patient injected with 1 00 mL of Isovue 370. Contrast CTA of the thoracic aorta was performed from the lung apex through the upper abdomen. 3D re construction imaging obtained at a separate workstation. CT Chest: THORACIC AORTA: The ascending thoracic aorta again measures 3.9 cm maximal AP dimension. The thoracic aorta at the level of the left hilum measures 4.5 cm AP dimension versus 4.8 cm measured previously. At the level of the aortic hiatus the aneurysm measures 4.5 cm versus 4.6 cm previously. No evidence for rupture or complicating factor such as dissection. Scattered atheromatous change. LUNGS: Emphysematous changes noted bilaterally. Hyperinflation compatible with COPD. Basilar fibrosi s right greater than left. 4 mm pulmonary nodule right lower lobe is stable. Parenchymal scarring in the region of the lingula. MEDIASTINUM: No evidence for mediastinal hematoma. The heart is not enlarged. No evidence for med iastinal mass or adenopathy. HILAR STRUCTURES: No evidence for mass. No hilar adenopathy is appreciated. OTHER: No significant abnormality. IMPRESSION- 1. Aneurysm of the thoracic aorta is stable without complicating factor. 2. Pulmonary fibrosis, COPD and emphysematous change. 3. Stable right basilar pulmonary nodule.
== END | disposition home or self-care (01) ==
LOC: RADCTMAIN 15:15
PROVIDERS: ATTEND Surgery
DX: I71.2 Thoracic aortic aneurysm, without rupture (principal); J84.10 Pulmonary fibrosis, unspecified; J43.9 Emphysema, unspecified; R91.1 Solitary pulmonary nodule
CPT/HCPCS: 71275; Q9967

== ENCOUNTER → 2019-01-23 | Outpatient (CLI) | payer MEDICARE ==
[2019-01-23 16:54] LABS: ALT 28 U/L (10-49); AST 37 U/L (14-35); GGT 75 U/L (0-73)
== END | disposition home or self-care (01) ==
LOC: LABWHC1 10:16
PROVIDERS: ATTEND Family Medicine
DX: K75.4 Autoimmune hepatitis (principal)
CPT/HCPCS: 36415; 82977; 84450; 84460

== ENCOUNTER 2019-04-27 03:22 | Inpatient (IN) | payer MEDICARE ==
[2019-04-27 03:57] LABS: Anisocytosis Slight; Basophils % (A) 0 %; Eosinophils # (A) 0.2 k/uL (0-0.7); Eosinophils % (A) 3 %; HCT 37.4 % (39.0-53.0); HGB 12.4 gm/dL (13.0-17.5); Lymphocytes # (A) 0.8 k/uL (1.0-4.8); Lymphocytes % (A) 15 %; MCH 34.4 pg (25.0-35.0); MCV 104.1 fL (80.0-100.0); Macrocytosis Moderate; Monocytes # (A) 0.4 k/uL (0-1.0); Monocytes % (A) 7 %; Neutrophils # (A) 4.1 k/uL (1.3-7.7); Neutrophils % (A) 73 %; Platelet Count 164 k/uL (150-450); RDW 16.6 % (11.5-15.5); WBC 5.6 k/uL (3.8-10.6)
[2019-04-27] MEDS ORDERED: DILTIAZEM DRIP BOLUS FROM BAG 1 MG SOLN IV ONE (04:04)
[2019-04-27] MEDS ORDERED: NALOXONE 0.4 MG/ML 1 ML VIAL IV PRN (04:05)
[2019-04-27] MEDS ORDERED: ALBUTEROL NEBULIZED 2.5 MG/3 ML INHALATION PRN (04:06)
[2019-04-27] MEDS ORDERED: ALBUTEROL NEB (CONC) 2.5 MG/0.5 ML INHALATION PRN (04:06)
[2019-04-27 04:07] LABS: Albumin 3.9 g/dL (3.5-5.0); Calcium 9.1 mg/dL (8.4-10.2); Magnesium 2.4 mg/dL (1.6-2.3); Potassium 4.5 mmol/L (3.5-5.1); Total Bilirubin 0.5 mg/dL (0.2-1.3)
[2019-04-27 04:08] LABS: INR 1.1 (<1.2); Partial Thromboplastin Time 27.9 sec (22.0-30.0); Prothrombin Time 11.2 sec (9.0-12.0)
[2019-04-27] MEDS ORDERED: DILTIAZEM 125 MG in SODIUM CHLORIDE 0.9% 100 ML IV SCH (04:15)
--- NOTE | 2019-04-27 04:15 | XR ---
EXAM: XR Chest, 2 Views CLINICAL HISTORY: dysrhythmia TECHNIQUE: Frontal and lateral views of the chest. COMPARISON: 01/10/2018. FINDINGS: Lungs: Chronic interstitial lung changes with hyperinflation of both lungs suggesting COPD, as seen on prior study. Bibasilar atelectasis and/or scarring, left greater than right, although infiltrates cannot be definitively excluded within this setting. Subtle Zena B lines are again noted suggesting mild pulmonary interstitial edema. Pleural space: No definitive pleural effusions. No pneumothorax. Heart: Unremarkable. No cardiomegaly. Mediastinum: Essentially unchanged. Bones/joints: Osteopenia suggested. IMPRESSION: 1. Chronic interstitial lung changes with hyperinflation of both lungs suggesting COPD, as seen on prior study. 2. Bibasilar atelectasis and/or scarring, left greater than right, although infiltrates cannot be definitively excluded within this setting. 3. Mild pulmonary interstitial edema is again suggested.
--- NOTE | 2019-04-27 04:32 | ED ---
Arrhythmia/Palpitations HPI - General Chief Complaint: Arrhythmia/Palpitations Stated Complaint: Afib Time Seen by Provider: 04/27/19 03:30 Source: patient, family Mode of arrival: ambulatory Limitations: no limitations - History of Present Illness Initial Comments: Oneil is a pleasant 78-year-old gentleman with a history of A. fib who presents to the emergency department today for evaluation of palpitations. Patient reports that sometime night or Sunday morning he noticed that his heart was racing, he was evaluated by his primary care office on Sunday, at which time his heart rate was noted to be in the 130s, he is advised to double his dose of metoprolol. Patient reports he's been doing this but continues to have persistent palpitations, because this is been going on greater than 2 days he decided to come the ER for evaluation. Patient reports he's had some GI upset and felt a little bit of gas but no chest pain or shortness of breath. Patient denies any lightheadedness near syncope. He reports he's been compliant with all his home medications. - Related Data Home Medications Medication Instructions Recorded Confirmed ALPRAZolam [Xanax] 0.25 mg PO DAILY PRN 08/26/15 02/26/18 Albuterol Sulfate [Proair Hfa] 1 - 2 puff INHALATION RT-Q6H PRN 08/26/15 02/26/18 Mometasone/Formoterol [Dulera 200 2 puff INHALATION BID 08/26/15 02/26/18 Mcg/5 Mcg Inhaler] Mercaptopurine [Purinethol] 50 mg PO HS 12/25/16 02/26/18 Levothyroxine Sodium [Synthroid] 112 mcg PO DAILY 01/08/18 02/26/18 Nitroglycerin Sl Tabs [Nitrostat] 0.4 mg SUBLINGUAL Q5M PRN 01/10/18 02/26/18 Albuterol Nebulized (Conc) 2.5 mg INHALATION DAILY PRN 02/20/18 02/20/18 [Ventolin Nebulized (Conc)] Aspirin [Adult Low Dose Aspirin EC] 81 mg PO DAILY 02/20/18 02/26/18 Previous Rx's Medication Instructions Recorded Amiodarone [Cordarone] 200 mg PO DAILY #0 tab 02/27/18 Atorvastatin [Lipitor] 40 mg PO HS #90 tab 02/27/18 Clopidogrel [Plavix] 75 mg PO DAILY #90 tab 02/27/18 Losartan [Cozaar] 25 mg PO DAILY #90 tab 02/27/18 Metoprolol Tartrate [Lopressor] 25 mg PO DAILY #0 02/27/18 Nicotine 14Mg/24Hr Patch [Habitrol] 1 patch TRANSDERM DAILY #30 patch 02/27/18 Allergies Allergy/AdvReac Type Severity Reaction Status Date / Time codeine Allergy Unknown Verified 04/27/19 03:29 Review of Systems ROS Statement: Those systems with pertinent positive or pertinent negative responses have been documented in the HPI. ROS Other: All systems not noted in ROS Statement are negative. 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 cardiac cath with stenting Past Anesthesia/Blood Transfusion Reactions: No Reported Reaction Past Psychological History: No Psychological Hx Reported Smoking Status: Current every day smoker Past Alcohol Use History: None Reported Past Drug Use History: None Reported - Past Family History Mother Family Medical History: Cancer Additional Family Medical History / Comment(s): breast CA Father Additional Family Medical History / Comment(s): COLOSTOMY Daughter(s) Family Medical History: Deep Vein Thrombosis (DVT) Additional Family Medical History / Comment(s): HX FACTOR FIVE LEIDEN General Exam - General Exam Comments Initial Comments: Physical Exam GENERAL: Patient is well-developed and well-nourished. Patient is nontoxic and well- hydrated and is in no distress. HENT: Normocephalic, Atraumatic. EYES: PERRL, EOMI PULMONARY: Unlabored respirations. No audible rales rhonchi or wheezing was noted. CARDIOVASCULAR: Irregularly irregular tachycardia ABDOMEN: Soft and nontender with normal bowel sounds. SKIN: Skin is clear with no lesions or rashes and otherwise unremarkable. 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 Moving all extremities spontaneously MUSCULOSKELETAL: Normal extremities with adequate strength and full range of motion. No lower extremity swelling or edema. No calf tenderness. PSYCHIATRIC: Normal psychiatric evaluation. Limitations: no limitations Course Vital Signs 04/27/19 04/27/19 03:24 04:30 Temperature 98 F Pulse Rate 137 H 99 Respiratory 20 22 Rate Blood Pressure 105/68 105/74 O2 Sat by Pulse 98 97 Oximetry EKG Findings - EKG Comments: EKG Findings:: EKG was obtained due to complaint of palpitations, EKG obtained at 3:40 AM, rate is 138 rhythm is narrow complex relatively regular tachycardia with a rate of 138. This appears to be a atrial flutter with variable block as there are no discernible P waves. Her no acute ST elevations or depressions, 1 PVC is noted. No evidence of acute ischemia or infarction. Medical Decision Making - Medical Decision Making The patient was seen and evaluated, history is obtained from the patient, at bedside as well as review of medical record Physical exam is concerning for tachycardia, EKG confirms what appears to be in atrial flutter, patient is currently on metoprolol, Cardizem will be ordered patient is currently anticoagulated therefore heparin will not be ordered The patient's heart rate improved significantly after Cardizem bolus, Cardizem's at 5 mg per hour and heart rate is in the 90s Labs resulted with a mild elevation in troponin, this is likely secondary to the fact that the patient has had a heart rate of nearly 140 for 2 days duration. We will turn this upon admission. - Lab Data Result diagrams: 04/27/19 03:40 04/27/19 03:40 Lab Results 04/27/19 04/27/19 04/27/19 Range/Units 03:40 03:40 03:40 WBC 5.6 (3.8-10.6) k/uL RBC 3.60 L (4.30-5.90) m/uL Hgb 12.4 L (13.0-17.5) gm/dL Hct 37.4 L (39.0-53.0) % MCV 104.1 H (80.0-100.0) fL MCH 34.4 (25.0-35.0) pg MCHC 33.0 (31.0-37.0) g/dL RDW 16.6 H (11.5-15.5) % Plt Count 164 (150-450) k/uL Neutrophils % 73 % Lymphocytes % 15 % Monocytes % 7 % Eosinophils % 3 % Basophils % 0 % Neutrophils # 4.1 (1.3-7.7) k/uL Lymphocytes # 0.8 L (1.0-4.8) k/uL Monocytes # 0.4 (0-1.0) k/uL Eosinophils # 0.2 (0-0.7) k/uL Basophils # 0.0 (0-0.2) k/uL Anisocytosis Slight Macrocytosis Moderate PT 11.2 (9.0-12.0) sec INR 1.1 (<1.2) APTT 27.9 (22.0-30.0) sec Sodium 135 L (137-145) mmol/L Potassium 4.5 (3.5-5.1) mmol/L Chloride 101 (98-107) mmol/L Carbon Dioxide 24 (22-30) mmol/L Anion Gap 10 mmol/L BUN 18 (9-20) mg/dL Creatinine 1.00 (0.66-1.25) mg/dL Est GFR (CKD-EPI)AfAm 82 (>60 ml/min/1.73 sqM) Est GFR (CKD-EPI)NonAf 71 (>60 ml/min/1.73 sqM) Glucose 104 H (74-99) mg/dL Calcium 9.1 (8.4-10.2) mg/dL Magnesium 2.4 H (1.6-2.3) mg/dL Total Bilirubin 0.5 (0.2-1.3) mg/dL AST 28 (17-59) U/L ALT 22 (21-72) U/L Alkaline Phosphatase 100 (38-126) U/L Troponin I (0.000-0.034) ng/mL Total Protein 7.0 (6.3-8.2) g/dL Albumin 3.9 (3.5-5.0) g/dL TSH 3.850 (0.465-4.680) mIU/L 04/27/19 Range/Units 03:40 WBC (3.8-10.6) k/uL RBC (4.30-5.90) m/uL Hgb (13.0-17.5) gm/dL Hct (39.0-53.0) % MCV (80.0-100.0) fL MCH (25.0-35.0) pg MCHC (31.0-37.0) g/dL RDW (11.5-15.5) % Plt Count (150-450) k/uL Neutrophils % % Lymphocytes % % Monocytes % % Eosinophils % % Basophils % % Neutrophils # (1.3-7.7) k/uL Lymphocytes # (1.0-4.8) k/uL Monocytes # (0-1.0) k/uL Eosinophils # (0-0.7) k/uL Basophils # (0-0.2) k/uL Anisocytosis Macrocytosis PT (9.0-12.0) sec INR (<1.2) APTT (22.0-30.0) sec Sodium (137-145) mmol/L Potassium (3.5-5.1) mmol/L Chloride (98-107) mmol/L Carbon Dioxide (22-30) mmol/L Anion Gap mmol/L BUN (9-20) mg/dL Creatinine (0.66-1.25) mg/dL Est GFR (CKD-EPI)AfAm (>60 ml/min/1.73 sqM) Est GFR (CKD-EPI)NonAf (>60 ml/min/1.73 sqM) Glucose (74-99) mg/dL Calcium (8.4-10.2) mg/dL Magnesium (1.6-2.3) mg/dL Total Bilirubin (0.2-1.3) mg/dL AST (17-59) U/L ALT (21-72) U/L Alkaline Phosphatase (38-126) U/L Troponin I 0.088 H* (0.000-0.034) ng/mL Total Protein (6.3-8.2) g/dL Albumin (3.5-5.0) g/dL TSH (0.465-4.680) mIU/L Disposition Clinical Impression: Atrial fibrillation with RVR, Elevated troponin Disposition: ADMITTED IP TO THIS HOSP Condition: Stable Is patient prescribed a controlled substance at d/c from ED?: No Referrals: Kayla Meyers DO [Primary Care Provider] - 1-2 days
[2019-04-27] MEDS ORDERED: SODIUM CHLORIDE 0.9% 500 ML 500 ML IV ONE (05:16)
[2019-04-27] MEDS: SYMBICORT 160-4.5 MCG INHALER INHALATION SCH ×2 (08:45→19:31)
[2019-04-27] MEDS ORDERED: NITROGLYCERIN SL TABS 0.4 MG TAB SUBLINGUAL PRN (08:52)
[2019-04-27] MEDS ORDERED: METOPROLOL TARTRATE 50 MG TAB PO SCH ×2 (09:00)
[2019-04-27] MEDS ORDERED: IPRATROPIUM-ALBUTEROL 3 ML NEB INHALATION PRN (09:28)
[2019-04-27] MEDS ORDERED: FUROSEMIDE 10 MG/ML 4 ML VIAL IV STA (09:34)
--- NOTE | 2019-04-27 09:42 | P.HPIM ---
History of Present Illness 78-year-old pleasant man came in with complaints of palpitations and chest discomfort secondary to palpitations. Patient does have known history of atrial fibrillation and is on anticoagulation. Patient does have the abdominal aneu rysm and a stent and patient is on now Plavix can use to smoke is comparing of some shortness of breath cough with bloody sputum production. Patient denied any fever chills dysuria. Patient heart rate is in 130s appears to have sinus tachycardia on both EKGs. One of them is read as atrial flutter but the appears to be sinus tachycardia for me. Patient uses metoprolol 25 mg which is a short-acting metoprolol daily basis which will be switched to 50 twice a day. Patient is presently on Cardizem. Patient never had any cardiac catheterization and stenting in the past patient has minimally elevated troponin 0.08 patient chest pain is nonpleuritic secondary to palpitations mild discomfort. Patient had normal ejection fraction in the past patient denied any symptoms of fever and body aches. Chest x-ray did not show any pneumonic process but was suspicious for pulmonary edema may need a repeat echocardiogram Review of Systems REVIEW OF SYSTEMS: CONSTITUTIONAL: No fever, no malaise, no fatigue. HEENT: No recent visual problems or hearing problems. Denied any sore throat. CARDIOVASCULAR: No chest pain, orthopnea, PND, no syncope. PULMONARY: No shortness of breath, no cough, no hemoptysis. GASTROINTESTINAL: No diarrhea, no nausea, no vomiting, no abdominal pain. NEUROLOGICAL: No headaches, no weakness, no numbness. HEMATOLOGICAL: Denies any bleeding or petechiae. GENITOURINARY: Denies any burning micturition, frequency, or urgency. MUSCULOSKELETAL/RHEUMATOLOGICAL: Denies any joint pain, swelling, or any muscle pain. ENDOCRINE: Denies any polyuria or polydipsia. The rest of the 14-point review of systems is negative. 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 cardiac cath with stenting Past Anesthesia/Blood Transfusion Reactions: No Reported Reaction Past Psychological History: No Psychological Hx Reported Smoking Status: Current every day smoker Past Alcohol Use History: None Reported Past Drug Use History: None Reported - Past Family History Mother Family Medical History: Cancer Additional Family Medical History / Comment(s): breast CA Father Additional Family Medical History / Comment(s): COLOSTOMY Daughter(s) Family Medical History: Deep Vein Thrombosis (DVT) Additional Family Medical History / Comment(s): HX FACTOR FIVE LEIDEN Medications and Allergies Home Medications Medication Instructions Recorded Confirmed Type ALPRAZolam [Xanax] 0.5 mg PO DAILY PRN 08/26/15 04/27/19 History Albuterol Sulfate [Proair Hfa] 1 - 2 puff INHALATION RT-Q6H PRN 08/26/15 04/27/19 History Mometasone/Formoterol [Dulera 200 2 puff INHALATION RT-BID 08/26/15 04/27/19 History Mcg/5 Mcg Inhaler] Mercaptopurine [Purinethol] 50 mg PO HS 12/25/16 04/27/19 History Nitroglycerin Sl Tabs [Nitrostat] 0.4 mg SUBLINGUAL Q5M PRN 01/10/18 04/27/19 History Clopidogrel [Plavix] 75 mg PO DAILY #90 tab 02/27/18 04/27/19 Rx Losartan [Cozaar] 25 mg PO DAILY #90 tab 02/27/18 04/27/19 Rx Albuterol Nebulized [Ventolin 2.5 mg INHALATION RT-TID 04/27/19 04/27/19 History Nebulized] Atorvastatin [Lipitor] 20 mg PO MOWEFR 04/27/19 04/27/19 History Levothyroxine Sodium [Synthroid] 150 mcg PO DAILY 04/27/19 04/27/19 History Metoprolol Tartrate [Lopressor] 25 mg PO DAILY 04/27/19 04/27/19 History Rivaroxaban [Xarelto] 15 mg PO DAILY 04/27/19 04/27/19 History Allergies Allergy/AdvReac Type Severity Reaction Status Date / Time codeine Allergy Unknown Verified 04/27/19 07:11 Physical Exam Vitals: Vital Signs Temp Pulse Resp BP Pulse Ox 04/27/19 06:59 141 H 20 108/88 95 04/27/19 06:21 140 H 20 110/82 96 04/27/19 05:53 140 H 18 105/89 97 04/27/19 05:17 137 H 20 101/59 96 04/27/19 05:10 129 H 20 89/68 97 04/27/19 04:30 99 22 105/74 97 04/27/19 03:24 98 F 137 H 20 105/68 98 Intake and Output 04/26/19 04/27/19 04/27/19 22:59 06:59 14:59 Other: Weight 67.132 kg PHYSICAL EXAMINATION: GENERAL: The patient is alert and oriented x3, not in any acute distress. Well developed, well nourished. HEENT: Pupils are round and equally reacting to light. EOMI. No scleral icterus. No conjunctival pallor. Normocephalic, atraumatic. No pharyngeal erythema. No thyromegaly. CARDIOVASCULAR: S1 and S2 present. No murmurs, rubs, or gallops. PULMONARY: Chest is clear to auscultation, no wheezing or crackles. ABDOMEN: Soft, nontender, nondistended, normoactive bowel sounds. No palpable organomegaly. MUSCULOSKELETAL: No joint swelling or deformity. EXTREMITIES: No cyanosis, clubbing, or pedal edema. NEUROLOGICAL: Gross neurological examination did not reveal any focal deficits. SKIN: No rashes. Results CBC & Chem 7: 04/27/19 03:40 04/27/19 03:40 Labs: Abnormal Lab Results - Last 24 Hours (Table) 04/27/19 04/27/19 04/27/19 Range/Units 03:40 03:40 03:40 RBC 3.60 L (4.30-5.90) m/uL Hgb 12.4 L (13.0-17.5) gm/dL Hct 37.4 L (39.0-53.0) % MCV 104.1 H (80.0-100.0) fL RDW 16.6 H (11.5-15.5) % Lymphocytes # 0.8 L (1.0-4.8) k/uL Sodium 135 L (137-145) mmol/L Glucose 104 H (74-99) mg/dL Magnesium 2.4 H (1.6-2.3) mg/dL Troponin I 0.088 H* (0.000-0.034) ng/mL Assessment and Plan Plan: -Palpitations with history of atrial flutter: Patient has sinus tachycardia now started his month and his. Continue Cardizem is a dose of metoprolol continue with anticoagulation because of his history of atrial flutter and fib. Patient does have mild pulmonary edema will give a dose of Lasix. May need an echocardiogram highly with addition to cardiology. As of breath may be contributing to his tachycardia. Patient had normal echocardiogram in the past -related troponin secondary to tachycardia cardiology evaluated the patient for the management as per the -Hypothyroidism continue with levothyroxine and TSH is within normal limits COPD with minimal exacerbation we'll use inhaled steroids inhalational treatments there is no improvement patient may require oral steroids -History of DVT in the past -Continued nicotine use: Counseling was provided
[2019-04-27] MEDS: LEVOTHYROXINE 75 MCG TAB PO SCH (09:49)
[2019-04-27] MEDS: CLOPIDOGREL 75 MG TAB PO SCH (09:49)
[2019-04-27] MEDS: ASPIRIN 81 MG PO SCH (09:49)
[2019-04-27] MEDS: RIVAROXABAN 15 MG TAB PO SCH (09:49)
[2019-04-27] MEDS: NICOTINE 14MG/24HR PATCH TRANSDERM SCH (09:50)
[2019-04-27 10:09] VITALS: BMI 21.8
--- NOTE | 2019-04-27 10:31 | P.CRDCN ---
History of Present Illness History of present illness: This is a pleasant 78-year-old male past medical history significant for paroxysmal atrial fibrillation on long-term anticoagulation, COPD, coronary artery disease status post stent placement LAD with total occlusion of the RCA, ischemic cardiomyopathy, peripheral vascular disease status post left carotid endarterectomy. He unfortunately also continues to smoke daily. He follows in the office with Dr. Patel. We have been ischemic consultation secondary to A. fib with RVR. He states he saw Dr. Patel in the office Sunday for palpitations. EKG taken at that time revealed atrial flutter. He was advised to increase his lopressor. He was advised to come to the hospital if his heart rate remained elevated. He states over the weekend he continues to feel tired and weak with persistent palpitations. On arrival EKG obtained revealed atrial flutter with rate of 138-140. He denies chest pain, shortness of breath or dizziness. He has been initiated on a cardizem infusion. Chest x-ray reveals chronic interstitial lung changes with hyperinflation, bibasilar atelectasis and mild interstitial edema. Laboratory data reviewed, WBC 5.6, hemoglobin 12.4, platelets 164, sodium 135, potassium 4.5, creatinine 1.0, magnesium 2.4, troponin 0.088, proBNP 6440 and TSH 3.85. Most recent echocardiogram obtained in January 2018 reveals impaired LV systolic function with ejection fraction 30-35%, mild MR and mild TR. Current daily cardiac medications include atorvastatin 20 mg every other day, Plavix 75 mg daily, losartan 25 mg daily, Lopressor 25 mg daily and Xarelto 15 mg daily. At the time of my exam: CONSTITUTIONAL: Denies fever. Denies chills. EYES: Denies blurred vision. Denies vision changes. Denies eye pain. EARS, NOSE, MOUTH & THROAT: Denies headache. Denies sore throat. Denies ear pain. CARDIOVASCULAR: Denies chest pain. Denies shortness of breath. Denies orthopnea. Denies PND. Complains of palpitations. RESPIRATORY: Denies cough. GASTROINTESTINAL: Denies abdominal pain. Denies diarrhea. Denies constipation. Denies nausea. Denies vomiting. MUSCULOSKELETAL: Denies myalgias. INTEGUMENTARY: Denies pruitis. Denies rash. NEUROLOGIC: Denies numbness. Denies tingling. Denies weakness. PSYCHIATRIC: Denies anxiety. Denies depression. ENDOCRINE: Denies fatigue. Denies weight change. Denies polydipsia. Denies polyurina. GENITOURINARY: Denies burning, hematuria or urgency with micturation. HEMATOLOGIC: Denies history of anemia. Denies bleeding. Blood pressure 108/88 heart rate 141 and oxygen saturation on room air afebrile GENERAL: This is a 78-year-old male in no apparent distress at the time of my examination. HEENT: Head is atraumatic, normocephalic. Pupils are equal, round. Sclerae anicteric. Conjunctivae are clear. Mucous membranes of the mouth are moist. Neck is supple. There is no jugular venous distention. No carotid bruit is heard. LUNGS: Scattered course rhonchi, no rales or wheezes. No chest wall tenderness is noted on palpation or with deep breathing. HEART: Irregular rate and rhythm without murmurs, rubs or gallops. S1 and S2 heard. ABDOMEN: Soft, nontender. Bowel sounds are heard. No organomegaly noted. EXTREMITIES: No evidence of peripheral edema and no calf tenderness noted. VASCULAR: Radial and dorsalis pedis pulses palpated, no evidence of clubbing. NEUROLOGIC: Patient is awake, alert and oriented x3. ASSESSMENT Paroxysmal atrial flutter with rapid ventricular response Ischemic cardiomyopathy, ejection fraction 30-35% Acute on chronic systolic heart failure, mild Elevated troponin likely secondary to rapid ventricular rates. Coronary artery disease status post stent placement to the RCA maintained on dual antiplatelet therapy Hypertension Dyslipidemia COPD Chronic nicotine dependence PLAN Continue Cardizem infusion. Resume Xarelto for thromboembolic protection. Repeat 2-D echocardiogram and Doppler study to assess cardiac structure and function. Follow renal function and electrolytes daily. Check second troponin. We will continue to follow and make recommendations accordingly. Thank you kindly for this consultation. Nurse Practitioner note has been reviewed, I agree with a documented findings a nd plan of care. Patient was seen and examined. 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 cardiac cath with stenting Past Anesthesia/Blood Transfusion Reactions: No Reported Reaction Past Psychological History: No Psychological Hx Reported Smoking Status: Current every day smoker Past Alcohol Use History: None Reported Additional Past Alcohol Use History / Comment(s): STARTED SMOKING 1956 10 cigarettes/day Past Drug Use History: None Reported - Past Family History Mother Family Medical History: Cancer Additional Family Medical History / Comment(s): breast CA Father Additional Family Medical History / Comment(s): COLOSTOMY Daughter(s) Family Medical History: Deep Vein Thrombosis (DVT) Additional Family Medical History / Comment(s): HX FACTOR FIVE LEIDEN Medications and Allergies Home Medications Medication Instructions Recorded Confirmed Type ALPRAZolam [Xanax] 0.5 mg PO DAILY PRN 08/26/15 04/27/19 History Albuterol Sulfate [Proair Hfa] 1 - 2 puff INHALATION RT-Q6H PRN 08/26/15 04/27/19 History Mometasone/Formoterol [Dulera 200 2 puff INHALATION RT-BID 08/26/15 04/27/19 History Mcg/5 Mcg Inhaler] Mercaptopurine [Purinethol] 50 mg PO HS 12/25/16 04/27/19 History Nitroglycerin Sl Tabs [Nitrostat] 0.4 mg SUBLINGUAL Q5M PRN 01/10/18 04/27/19 History Clopidogrel [Plavix] 75 mg PO DAILY #90 tab 02/27/18 04/27/19 Rx Losartan [Cozaar] 25 mg PO DAILY #90 tab 02/27/18 04/27/19 Rx Albuterol Nebulized [Ventolin 2.5 mg INHALATION RT-TID 04/27/19 04/27/19 History Nebulized] Atorvastatin [Lipitor] 20 mg PO MOWEFR 04/27/19 04/27/19 History Levothyroxine Sodium [Synthroid] 150 mcg PO DAILY 04/27/19 04/27/19 History Metoprolol Tartrate [Lopressor] 25 mg PO DAILY 04/27/19 04/27/19 History Rivaroxaban [Xarelto] 15 mg PO DAILY 04/27/19 04/27/19 History Allergies Allergy/AdvReac Type Severity Reaction Status Date / Time codeine Allergy Unknown Verified 04/27/19 07:11 Physical Exam Vitals: Vital Signs Temp Pulse Resp BP Pulse Ox 04/27/19 06:59 141 H 20 108/88 95 04/27/19 06:21 140 H 20 110/82 96 04/27/19 05:53 140 H 18 105/89 97 04/27/19 05:17 137 H 20 101/59 96 04/27/19 05:10 129 H 20 89/68 97 04/27/19 04:30 99 22 105/74 97 04/27/19 03:24 98 F 137 H 20 105/68 98 Intake and Output 04/26/19 04/27/19 04/27/19 22:59 06:59 14:59 Other: Weight 67.132 kg Results 04/27/19 03:40 04/27/19 03:40 Cardiac Enzymes 04/27/19 04/27/19 Range/Units 03:40 03:40 AST 28 (17-59) U/L Troponin I 0.088 H* (0.000-0.034) ng/mL Coagulation 04/27/19 Range/Units 03:40 PT 11.2 (9.0-12.0) sec APTT 27.9 (22.0-30.0) sec CBC 04/27/19 Range/Units 03:40 WBC 5.6 (3.8-10.6) k/uL RBC 3.60 L (4.30-5.90) m/uL Hgb 12.4 L (13.0-17.5) gm/dL Hct 37.4 L (39.0-53.0) % Plt Count 164 (150-450) k/uL Comprehensive Metabolic Panel 04/27/19 Range/Units 03:40 Sodium 135 L (137-145) mmol/L Potassium 4.5 (3.5-5.1) mmol/L Chloride 101 (98-107) mmol/L Carbon Dioxide 24 (22-30) mmol/L BUN 18 (9-20) mg/dL Creatinine 1.00 (0.66-1.25) mg/dL Glucose 104 H (74-99) mg/dL Calcium 9.1 (8.4-10.2) mg/dL AST 28 (17-59) U/L ALT 22 (21-72) U/L Alkaline Phosphatase 100 (38-126) U/L Total Protein 7.0 (6.3-8.2) g/dL Albumin 3.9 (3.5-5.0) g/dL Current Medications Generic Name Dose Route Start Last Admin Trade Name Freq PRN Reason Stop Dose Admin Albuterol/Ipratropium 3 ml 04/27/19 09:28 Duoneb 0.5 Mg-3 Mg/3 Ml Soln INHALATION RT-QID PRN Shortness Of Breath Or Wheezing Albuterol/Ipratropium 3 ml 04/27/19 12:00 Duoneb 0.5 Mg-3 Mg/3 Ml Soln INHALATION RT-QID [facility] Aspirin 81 mg 04/27/19 09:00 04/27/19 09:49 Aspirin PO Not Given DAILY [facility] Atorvastatin Calcium 20 mg 04/28/19 09:00 Lipitor PO MOWEFR [facility] Budesonide/Formoterol Fumarate 2 puff 04/27/19 08:00 04/27/19 08:45 Symbicort 160-4.5 Mcg Inhaler INHALATION 2 puff RT-BID [facility] Administration Clopidogrel Bisulfate 75 mg 04/27/19 09:00 04/27/19 09:49 Plavix PO 75 mg DAILY [facility] Administration Diltiazem HCl 125 mg/ Sodium 125 mls @ 0 mls/hr 04/27/19 04:15 04/27/19 04:18 Chloride IV 5 mls/hr .Q0M OMI 5 mls/hr Administration Protocol Per Protocol Levothyroxine Sodium 150 mcg 04/27/19 09:00 04/27/19 09:49 Synthroid PO 150 mcg 0630 OMI Administration Mercaptopurine 50 mg 04/27/19 21:00 Purinethol PO HS [facility] Metoprolol Tartrate 50 mg 04/27/19 21:00 Lopressor PO BID [facility] Naloxone HCl 0.2 mg 04/27/19 04:05 Narcan IV Q2M PRN Opioid Reversal Nicotine 1 patch 04/27/19 09:00 04/27/19 09:50 Habitrol 14mg/24hr Patch TRANSDERM 1 patch DAILY [facility] Administration Nitroglycerin 0.4 mg 04/27/19 08:52 Nitrostat SUBLINGUAL Q5M PRN Chest Pain Rivaroxaban 15 mg 04/27/19 09:00 04/27/19 09:49 Xarelto PO 15 mg DAILY [facility] Administration Intake and Output 04/26/19 04/27/19 04/27/19 22:59 06:59 14:59 Other: Weight 67.132 kg 04/27/19 03:40 04/27/19 03:40
[2019-04-27] MEDS: IPRATROPIUM-ALBUTEROL 3 ML NEB INHALATION SCH ×3 (11:54→19:31)
[2019-04-27] MEDS ORDERED: ALBUTEROL NEBULIZED 2.5 MG/3 ML INHALATION SCH (13:00)
[2019-04-27] MEDS: FUROSEMIDE 40 MG TAB PO SCH (15:42)
[2019-04-27] MEDS ORDERED: METOPROLOL TARTRATE 50 MG TAB PO STA (18:23)
[2019-04-27] MEDS: MERCAPTOPURINE 50 MG TAB PO SCH (22:01)
[2019-04-27] MEDS: METOPROLOL TARTRATE 50 MG TAB PO SCH (22:01)
[2019-04-27] MEDS ORDERED: ALPRAZolam 0.5 MG TAB PO STA (22:09)
[2019-04-28 05:25] LABS: Anisocytosis Slight; HCT 34.2 % (39.0-53.0); HGB 11.2 gm/dL (13.0-17.5); MCH 34.5 pg (25.0-35.0); MCHC 32.8 g/dL (31.0-37.0); MCV 105.4 fL (80.0-100.0); Macrocytosis Moderate; Mean Platelet Volume 7.7; Platelet Count 161 k/uL (150-450); RBC 3.25 m/uL (4.30-5.90); RDW 16.6 % (11.5-15.5); WBC 6.8 k/uL (3.8-10.6)
[2019-04-28 05:36] LABS: Calcium 8.9 mg/dL (8.4-10.2); Potassium 4.1 mmol/L (3.5-5.1)
[2019-04-28] MEDS: LEVOTHYROXINE 75 MCG TAB PO SCH (07:10)
[2019-04-28] MEDS: IPRATROPIUM-ALBUTEROL 3 ML NEB INHALATION SCH ×4 (07:46→19:30)
[2019-04-28] MEDS: SYMBICORT 160-4.5 MCG INHALER INHALATION SCH ×2 (07:46→19:30)
[2019-04-28] MEDS ORDERED: METOPROLOL TARTRATE 25 MG TAB PO SCH (09:00)
[2019-04-28] MEDS ORDERED: ATORVASTATIN 20 MG TAB PO SCH (09:00)
[2019-04-28] MEDS: FUROSEMIDE 40 MG TAB PO SCH (09:02)
[2019-04-28] MEDS: CLOPIDOGREL 75 MG TAB PO SCH (09:02)
[2019-04-28] MEDS: RIVAROXABAN 15 MG TAB PO SCH (09:02)
[2019-04-28] MEDS: ASPIRIN 81 MG PO SCH (09:02)
[2019-04-28] MEDS: NICOTINE 14MG/24HR PATCH TRANSDERM SCH (09:02)
[2019-04-28] MEDS: METOPROLOL TARTRATE 50 MG TAB PO SCH ×2 (09:02→20:55)
--- NOTE | 2019-04-28 11:00 | ECHOF ---
Referral Reason:elevated troponin MEASUREMENTS -------- HEIGHT: 177.8 cm WEIGHT: 65.8 kg BP: RVIDd: 2.9 cm (< 3.3) IVSd: 1.3 cm (0.6 - 1.1) LVIDd: 3.8 cm (3.9 - 5.3) LVPWd: 1.6 cm (0.6 - 1.1) IVSs: 1.6 cm LVIDs: 3.7 cm LVPWs: 1.5 cm LAESV Index (A-L): 53.10 ml/m Ao Diam: 2.8 cm (2.0 - 3.7) AV Cusp: 1.9 cm (1.5 - 2.6) LA Diam: 4.4 cm (2.7 - 3.8) RAP: 15.00 mmHg RVSP: 32.84 mmHg FINDINGS -------- Atrial fibrillation. This was a technically good study. The left ventricular size is normal. There is moderate concentric left ventricular hypertrophy. O verall left ventricular systolic function is mild-moderately impaired with, an EF between 40 - 45 %. False Tendon Visualized in the LV The right ventricle is normal in size. LA is severely dilated >40 ml/m2 The right atrial size is normal. Interatrial and interventricular septum intact. There is mild aortic valve sclerosis. The mitral valve leaflets are mildly thickened. Mild mitral regurgitation is present. The tricuspid valve appears structurally normal. Mild tricuspid regurgitation present. Right vent ricular systolic pressure is normal at < 35 mmHg. Trace/mild (physiologic) pulmonic regurgitation. The aortic root size is normal. The inferior vena cava is mildly dilated. There is no pericardial effusion. CONCLUSIONS -------- 1. Atrial fibrillation. 2. This was a technically good study. 3. The left ventricular size is normal. 4. There is moderate concentric left ventricular hypertrophy. 5. Overall left ventricular systolic function is mild-moderately impaired with, an EF between 40 - 45 %. 6. False Tendon Visualized in the LV 7. LA is severely dilated >40 ml/m2 8. There is mild aortic valve sclerosis. 9. The mitral valve leaflets are mildly thickened. 10. Mild mitral regurgitation is present. 11. The tricuspid valve appears structurally normal. 12. Mild tricuspid regurgitation present. 13. Right ventricular systolic pressure is normal at < 35 mmHg. 14. Trace/mild (physiologic) pulmonic regurgitation. 15. The aortic root size is normal. 16. The inferior vena cava is mildly dilated. 17. There is no pericardial effusion. [employer] ARCHITECT: Yaneth Rosario RDCS
--- NOTE | 2019-04-28 12:02 | P.PN ---
Subjective Progress Note Date: 04/28/19 This is a pleasant 78-year-old male past medical history significant for paroxysmal atrial fibrillation on long-term anticoagulation, COPD, coronary artery disease status post stent placement LAD with total occlusion of the RCA, ischemic cardiomyopathy, peripheral vascular disease status post left carotid endarterectomy. He unfortunately also continues to smoke daily. He follows in the office with Dr. Patel. We have been ischemic consultation secondary to A. fib with RVR. He states he saw Dr. Patel in the office Sunday for palpitations. EKG taken at that time revealed atrial flutter. He was advised to increase his lopressor. He was advised to come to the hospital if his heart rate remained elevated. He states over the weekend he continues to feel tired and weak with persistent palpitations. On arrival EKG obtained revealed atrial flutter with rate of 138-140. He denies chest pain, shortness of breath or dizziness. He was initiated on a cardizem infusion. Patient also has a history of autoimmune hepatitis. He was seen and examined this morning, continues to be in atrial flutter his heart rate is in the 60s. We will discontinue the Cardizem drip as the patient has a known cardiomyopathy, initially we discussed potentially starting the patient on amiodarone but because of the history of hepatitis we will not do that. We will give the patient a couple doses of IV Lanoxin today and from tomorrow start him on oral. We will also perform a ARNAV with subsequent cardioversion tomorrow. The risks and the benefits of the procedure were explained with the patient and his in detail. Blood pressure today 98/50 with a heart rate in the 60s, 93% on room air. White blood cell count 6.8, hemoglobin 11.2, platelet count 161. Sodium 134, potassium 4.1, BUN 27 and creatinine 1.4 this morning. Objective - Vital Signs Vital signs: Vital Signs Temp 98.1 F 04/28/19 08:00 Pulse 68 04/28/19 11:44 Resp 16 04/28/19 08:00 BP 97/52 04/28/19 08:00 Pulse Ox 93 L 04/28/19 08:00 Intake & Output 04/27/19 04/28/19 04/28/19 18:59 06:59 18:59 Intake Total 539.833 Balance 539.833 Weight 66.2 kg Intake: Intake, IV Titration 59.833 Amount Diltiazem 125 mg In 59.833 Sodium Chloride 0.9% 100 ml @ Per Protocol IV .Q0M [facility] Rx#:[id number] Oral 480 Other: # Voids 1 # Bowel Movements 0 0 - Exam GENERAL: This is a 78-year-old male in no apparent distress at the ti me of my examination. HEENT: Head is atraumatic, normocephalic. Pupils are equal, round. Sclerae ani cteric. Conjunctivae are clear. Mucous membranes of the mouth are moist. Neck is supple. There is no jugular venous distention. No carotid bruit is heard. LUNGS: Scattered course rhonchi, no rales or wheezes. No chest wall tenderness is noted on palpation or with deep breathing. HEART: Irregular rate and rhythm without murmurs, rubs or gallops. S1 and S2 heard. ABDOMEN: Soft, nontender. Bowel sounds are heard. No organomegaly noted. EXTREMITIES: No evidence of peripheral edema and no calf tenderness noted. VASCULAR: Radial and dorsalis pedis pulses palpated, no evidence of clubbing. NEUROLOGIC: Patient is awake, alert and oriented x3. - Labs CBC & Chem 7: 04/28/19 05:02 04/28/19 05:02 Labs: Abnormal Lab Results - Last 24 Hours (Table) 04/28/19 04/28/19 Range/Units 05:02 05:02 RBC 3.25 L (4.30-5.90) m/uL Hgb 11.2 L (13.0-17.5) gm/dL Hct 34.2 L (39.0-53.0) % MCV 105.4 H (80.0-100.0) fL RDW 16.6 H (11.5-15.5) % Sodium 134 L (137-145) mmol/L BUN 27 H (9-20) mg/dL Creatinine 1.43 H (0.66-1.25) mg/dL Glucose 101 H (74-99) mg/dL Assessment and Plan Plan: ASSESSMENT and plan #1 Atrial flutter, typical #2 Ischemic cardiomyopathy, ejection fraction 30-35% #3 Acute on chronic systolic heart failure, mild #4 Elevated troponin likely secondary to rapid ventricular rates. #Coronary artery disease status post stent placement to the RCA maintained on dual antiplatelet therapy #6 Hypertension #7 Dyslipidemia #8 COPD #9 Chronic nicotine dependence #10 paroxysmal atrial fibrillation Plan We will discontinue the IV Cardizem and start the patient on some Lanoxin today. We will also discontinue the by mouth Lasix. Check lytes BUN and creatinine in the morning. Patient will be scheduled to undergo a ARNAV with subsequent cardioversion tomorrow by Dr. Aly. The risks and benefits of the procedure were explained with the patient and his in detail. DNP note has been reviewed, I agree with a documented findings and plan of care. Patient was seen and examined.
[2019-04-28] MEDS ORDERED: SODIUM CHLORIDE 0.9% 1,000 ML IV SCH (12:15)
[2019-04-28] MEDS: DIGOXIN 250 MCG/ML 2 ML AMP IVP SCH ×2 (12:25→20:54)
--- NOTE | 2019-04-28 13:51 | P.PN ---
Subjective Progress Note Date: 04/28/19 78-year-old pleasant man came in with complaints of palpitations and chest discomfort secondary to palpitations. Patient does have known history of atrial fibrillation and is on anticoagulation. Patient does have the abdominal aneurysm and a stent and patient is on now Plavix can use to smoke is comparing of some shortness of breath cough with bloody sputum production. Patient denied any fever chills dysuria. Patient heart rate is in 130s appears to have sinus tachycardia on both EKGs. One of them is read as atrial flutter but the appears to be sinus tachycardia for me. Patient uses metoprolol 25 mg which is a short- acting metoprolol daily basis which will be switched to 50 twice a day. Patient is presently on Cardizem. Patient never had any cardiac catheterization and stenting in the past patient has minimally elevated troponin 0.08 patient chest pain is nonpleuritic secondary to palpitations mild discomfort. Patient had normal ejection fraction in the past patient denied any symptoms of fever and body aches. Chest x-ray did not show any pneumonic process but was suspicious for pulmonary edema may need a repeat echocardiogram 04/28/2019 telemetry atrial flutter, controlled ventricular rate. No amiodarone secondary to history of autoimmune hepatitis. Cardizem drip discontinued, digoxin initiated. Systolic blood pressure borderline hypotension, currently in the high 90s. Creatinine 1.43. Coughing, appears to be having difficulties with thin liquids, history of dysphagia .speech therapy evaluation pending. Afebrile, normal WBC. Objective - Vital Signs Vital signs: Vital Signs Temp 98.1 F 04/28/19 08:00 Pulse 68 04/28/19 11:44 Resp 16 04/28/19 08:00 BP 97/52 04/28/19 08:00 Pulse Ox 93 L 04/28/19 08:00 Intake & Output 04/27/19 04/28/19 04/28/19 18:59 06:59 18:59 Intake Total 539.833 Balance 539.833 Weight 66.2 kg Intake: Intake, IV Titration 59.833 Amount Diltiazem 125 mg In 59.833 Sodium Chloride 0.9% 100 ml @ Per Protocol IV .Q0M [facility] Rx#:[id number] Oral 480 Other: # Voids 1 # Bowel Movements 0 0 - Exam GENERAL: The patient is sitting up in chair, alert and oriented x3, not in any acute distress. HEENT: Pupils are round and equally reacting to light. EOMI. No scleral icterus. No conjunctival pallor. Normocephalic, atraumatic. No pharyngeal erythema. No thyromegaly. CARDIOVASCULAR: S1 and S2 present. Irregular .No murmurs, rubs, or gallops. PULMONARY: Bilateral bases diminished, coarse rhonchi scattered, no wheezing or crackles. ABDOMEN: Soft, nontender, nondistended, normoactive bowel sounds. No palpable organomegaly. MUSCULOSKELETAL: No joint swelling or deformity. EXTREMITIES: No cyanosis, clubbing, or pedal edema. NEUROLOGICAL: Gross neurological examination did not reveal any focal deficits. SKIN: No rashes. - Labs CBC & Chem 7: 04/28/19 05:02 04/28/19 05:02 Labs: Abnormal Lab Results - Last 24 Hours (Table) 04/28/19 04/28/19 Range/Units 05:02 05:02 RBC 3.25 L (4.30-5.90) m/uL Hgb 11.2 L (13.0-17.5) gm/dL Hct 34.2 L (39.0-53.0) % MCV 105.4 H (80.0-100.0) fL RDW 16.6 H (11.5-15.5) % Sodium 134 L (137-145) mmol/L BUN 27 H (9-20) mg/dL Creatinine 1.43 H (0.66-1.25) mg/dL Glucose 101 H (74-99) mg/dL Assessment and Plan Assessment: -Atrial flutter -Acute on chronic systolic CHF, EF 30-35% -Elevated troponin, secondary to tachycardia, as per cardiology. -Hypothyroidism COPD with minimal exacerbation -History of DVT -Ongoing nicotine use -Autoimmune hepatitis -History of dysphagia. -Proximal atrial fibrillation -CAD -Hypertension -Acute renal failure Plan: Continue on current medication regime ,monitoring and symptomatic treatment. Strict aspiration precautions, history of dysphagia, swallow evaluation pending. Antiarrhythmics as per cardiology. ARNAV/cardioversion and scheduled for tomorrow. Close monitoring of renal function with labs ordered for a.m. The impression and plan of care has been dictated as directed. : I performed a history and examination of this patient, discussed the same with the dictator. I agree with the dictator's note ,documented as a scribe. Any additional findings or plans will be noted.
[2019-04-28] MEDS: MERCAPTOPURINE 50 MG TAB PO SCH (20:58)
[2019-04-29] MEDS: DIGOXIN 250 MCG/ML 2 ML AMP IVP SCH (03:30)
[2019-04-29 05:55] LABS: Anisocytosis Slight; Basophils % (A) 0 %; Eosinophils # (A) 0.1 k/uL (0-0.7); Eosinophils % (A) 1 %; HCT 35.4 % (39.0-53.0); HGB 11.4 gm/dL (13.0-17.5); Lymphocytes # (A) 0.6 k/uL (1.0-4.8); Lymphocytes % (A) 9 %; MCH 33.6 pg (25.0-35.0); MCHC 32.3 g/dL (31.0-37.0); MCV 104.1 fL (80.0-100.0); Macrocytosis Moderate; Mean Platelet Volume 7.6; Monocytes # (A) 0.5 k/uL (0-1.0); Monocytes % (A) 7 %; Neutrophils # (A) 5.1 k/uL (1.3-7.7); Neutrophils % (A) 81 %; Platelet Count 197 k/uL (150-450); RDW 16.8 % (11.5-15.5); WBC 6.4 k/uL (3.8-10.6)
[2019-04-29 06:12] LABS: Potassium 4.1 mmol/L (3.5-5.1)
[2019-04-29] MEDS: SYMBICORT 160-4.5 MCG INHALER INHALATION SCH (07:22)
[2019-04-29] MEDS: IPRATROPIUM-ALBUTEROL 3 ML NEB INHALATION SCH ×3 (07:22→15:19)
[2019-04-29] MEDS ORDERED: IV FLUID CONTINUATION 1,000 ML IV ONE (07:37)
[2019-04-29] MEDS ORDERED: SODIUM CHLORIDE 0.9% 1,000 ML IV SCH (08:00)
--- NOTE | 2019-04-29 08:05 | P.PCN ---
Date of Procedure: 04/29/19 Preoperative Diagnosis: Atrial flutter with rapid ventricular response Postoperative Diagnosis: Successful cardioversion to sinus rhythm Procedure(s) Performed: Cardioversion Description of Procedure: Patient was brought to the lab in a fasting state. He was prepped and draped in the usual fashion. He was given anesthesia by department of anesthesia. Anterior-posterior paddles were applied and 200 J shock was applied. Patient converted to sinus rhythm. Tolerated the procedure well. Final impression: #1. Successful cardioversion from atrial flutter to sinus rhythm. New Plan: We'll continue with anticoagulation along with beta blockers and digoxin
[2019-04-29 08:35] VITALS: RESP 16
[2019-04-29] MEDS ORDERED: DIGOXIN 125 MCG TAB PO SCH (09:00)
[2019-04-29] MEDS: LEVOTHYROXINE 75 MCG TAB PO SCH (09:16)
[2019-04-29] MEDS: RIVAROXABAN 15 MG TAB PO SCH (09:20)
[2019-04-29] MEDS: CLOPIDOGREL 75 MG TAB PO SCH (09:20)
[2019-04-29] MEDS: ASPIRIN 81 MG PO SCH (09:20)
[2019-04-29] MEDS: METOPROLOL TARTRATE 50 MG TAB PO SCH (09:21)
[2019-04-29] MEDS: NICOTINE 14MG/24HR PATCH TRANSDERM SCH (09:22)
[2019-04-29 14:07] VITALS: BP 105/70; PULSE 84; TEMP 97.8
--- NOTE | 2019-04-29 16:58 | P.DS ---
Providers Date of admission: 04/27/19 04:05 Expected date of discharge: 04/29/19 Attending physician: Kaveh Meyers MD Consults: 04/27/19 04:05 Consult Physician Urgent Consulting Provider: [facility] Consult Reason/Comments: RVR Do you want consulting provider notified?: Yes, Notify in am Primary care physician: Kayla Meyers [facility] Course: Final Diagnoses: -Atrial flutter, status post unsuccessful cardioversion, medical management -Acute on chronic systolic CHF, EF 30-35% -Elevated troponin, secondary to tachycardia, as per cardiology. -Hypothyroidism COPD with minimal exacerbation -History of DVT -Ongoing nicotine use -Autoimmune hepatitis -History of dysphagia. -Proximal atrial fibrillation -CAD -Hypertension -Acute renal failure Hospital course:78-year-old pleasant man came in with complaints of palpitations and chest discomfort secondary to palpitations. Patient does have known history of atrial fibrillation and is on anticoagulation. Patient does have the abdominal aneurysm and a stent and patient is on now Plavix can use to smoke is comparing of some shortness of breath cough with bloody sputum production. Patient denied any fever chills dysuria. Patient heart rate is in 130s appears to have sinus tachycardia on both EKGs. One of them is read as atrial flutter but the appears to be sinus tachycardia for me. Patient uses metoprolol 25 mg which is a short-acting metoprolol daily basis which will be switched to 50 twice a day. Patient is presently on Cardizem. Patient never had any cardiac catheterization and stenting in the past patient has minimally elevated troponin 0.08 patient chest pain is nonpleuritic secondary to palpitations mild discomfort. Patient had normal ejection fraction in the past patient denied any symptoms of fever and body aches. Chest x-ray did not show any pneumonic process but was suspicious for pulmonary edema may need a repeat echocardiogram 04/28/2019 telemetry atrial flutter, controlled ventricular rate. No amiodarone secondary to history of autoimmune hepatitis. Cardizem drip discontinued, digoxin initiated. Systolic blood pressure borderline hypotension, currently in the high 90s. Creatinine 1.43. Coughing, appears to be having difficulties with thin liquids, history of dysphagia .speech therapy evaluation pending. Afebrile, normal WBC. Status post unsuccessful cardioversion, currently atrial fibrillation flutter, controlled ventricular rate. Maximizing medical therapy as per cardiology. Ambulating, tolerating well with no shortness of breath. Denies chest pain, palpitations. His lightheadedness dizziness or focal deficits. Cleared by cardiology for discharge. Swallow evaluation and reported evidence of mild aspiration with thin liquids with laryngeal penetration, patient had significant difficulty clearing throat clear and or cough. Speech therapy recommended soft mechanical diet with honey thickened liquids with implementation of Yvette free water protocol program. Also recommended dysphagia HEP targeting laryngeal and base of tongue strengthening exercises . Aspiration risks/aspiration pneumonia/pulmonary/choking discussed at great length . Patient verbalized understanding. Patient declining any dietary modifications at this time . Patient declined MBS study .Patient is being discharged home in a stable condition with guarded prognosis. Exam GENERAL: alert and oriented x3, not in any acute distress. CARDIOVASCULAR: S1 and S2 present. Irregular .No murmurs, rubs, or gallops. PULMONARY: Bilateral bases diminished, coarse rhonchi scattered, no wheezing or crackles. ABDOMEN: Soft, nontender, nondistended, normoactive bowel sounds. No palpable organomegaly. NEUROLOGICAL: Gross neurological examination did not reveal any focal deficits. The impression and plan of care has been dictated as directed. : I performed a history and examination of this patient, discussed the same with the dictator. I agree with the dictator's note ,documented as a scribe. Any additional findings or plans will be noted. Time taken: 35 minutes Patient Condition at Discharge: Stable Plan - Discharge Summary Discharge Rx Participant: No New Discharge Prescriptions: New Aspirin 81 mg PO DAILY chew Nicotine 14Mg/24Hr Patch [Habitrol] 1 patch TRANSDERM DAILY #30 patch Digoxin [Lanoxin] 125 mcg PO DAILY #30 tab Metoprolol Tartrate [Lopressor] 50 mg PO BID #60 tab Continue ALPRAZolam [Xanax] 0.5 mg PO DAILY PRN PRN Reason: Anxiety Mometasone/Formoterol [Dulera 200 Mcg/5 Mcg Inhaler] 2 puff INHALATION RT-BID Albuterol Sulfate [Proair Hfa] 1 - 2 puff INHALATION RT-Q6H PRN PRN Reason: Shortness Of Breath Mercaptopurine [Purinethol] 50 mg PO HS Nitroglycerin Sl Tabs [Nitrostat] 0.4 mg SUBLINGUAL Q5M PRN PRN Reason: Chest Pain Clopidogrel [Plavix] 75 mg PO DAILY #90 tab Rivaroxaban [Xarelto] 15 mg PO DAILY Levothyroxine Sodium [Synthroid] 150 mcg PO DAILY Atorvastatin [Lipitor] 20 mg PO MOWEFR Albuterol Nebulized [Ventolin Nebulized] 2.5 mg INHALATION RT-TID Discontinued Losartan [Cozaar] 25 mg PO DAILY #90 tab Metoprolol Tartrate [Lopressor] 25 mg PO DAILY Discharge Medication List ALPRAZolam [Xanax] 0.5 mg PO DAILY PRN 08/26/15 [History] Albuterol Sulfate [Proair Hfa] 1 - 2 puff INHALATION RT-Q6H PRN 08/26/15 [History] Mometasone/Formoterol [Dulera 200 Mcg/5 Mcg Inhaler] 2 puff INHALATION RT-BID 08/26/15 [History] Mercaptopurine [Purinethol] 50 mg PO HS 12/25/16 [History] Nitroglycerin Sl Tabs [Nitrostat] 0.4 mg SUBLINGUAL Q5M PRN 01/10/18 [History] Clopidogrel [Plavix] 75 mg PO DAILY #90 tab 02/27/18 [Rx] Albuterol Nebulized [Ventolin Nebulized] 2.5 mg INHALATION RT-TID 04/27/19 [History] Atorvastatin [Lipitor] 20 mg PO MOWEFR 04/27/19 [History] Levothyroxine Sodium [Synthroid] 150 mcg PO DAILY 04/27/19 [History] Rivaroxaban [Xarelto] 15 mg PO DAILY 04/27/19 [History] Aspirin 81 mg PO DAILY chew 04/29/19 [Rx] Digoxin [Lanoxin] 125 mcg PO DAILY #30 tab 04/29/19 [Rx] Metoprolol Tartrate [Lopressor] 50 mg PO BID #60 tab 04/29/19 [Rx] Nicotine 14Mg/24Hr Patch [Habitrol] 1 patch TRANSDERM DAILY #30 patch 04/29/19 [Rx] Follow up Appointment(s)/Referral(s): Jose Miguel Patel MD [STAFF PHYSICIAN] - 05/05/19 2:45 pm (With Pam PALM. Previous appointment changed, Sunday appointment cancelled.) Kayla Meyers DO [Primary Care Provider] - 3 Days (Left message at office, they will call you with a follow up appointment. ) Patient Instructions/Handouts: Transesophageal Echocardiogram (DC), How to Stop Smoking (DC), Cardioversion (DC) Discharge Disposition: HOME SELF-CARE
== END 2019-04-29 15:05 | disposition home or self-care (01) | DRG 308 ==
LOC: EC 03:22 → 3SCARD 04:05
PROVIDERS: ADMIT Family Medicine; ATTEND Family Medicine
PROC: B246ZZ4 Ultrasonography of Right and Left Heart, Transesophageal (ICD-10-PCS; 2019-04-29)
PROC: 5A2204Z Restoration of Cardiac Rhythm, Single (ICD-10-PCS; principal; 2019-04-29 07:30)
DX: I48.3 Typical atrial flutter (principal); I50.23 Acute on chronic systolic (congestive) heart failure; J44.1 Chronic obstructive pulmonary disease with (acute) exacerbation; N17.9 Acute kidney failure, unspecified; J98.11 Atelectasis; I95.9 Hypotension, unspecified; I25.82 Chronic total occlusion of coronary artery; I11.0 Hypertensive heart disease with heart failure; I08.1 Rheumatic disorders of both mitral and tricuspid valves; R13.10 Dysphagia, unspecified; I25.5 Ischemic cardiomyopathy; I48.0 Paroxysmal atrial fibrillation; I73.9 Peripheral vascular disease, unspecified; I25.10 Atherosclerotic heart disease of native coronary artery without angina pectoris; E03.9 Hypothyroidism, unspecified; E78.5 Hyperlipidemia, unspecified; I25.2 Old myocardial infarction; R79.89 Other specified abnormal findings of blood chemistry; F17.210 Nicotine dependence, cigarettes, uncomplicated; Z71.6 Tobacco abuse counseling; Z79.02 Long term (current) use of antithrombotics/antiplatelets; Z79.890 Hormone replacement therapy; Z79.01 Long term (current) use of anticoagulants; Z79.51 Long term (current) use of inhaled steroids; Z79.82 Long term (current) use of aspirin; Z79.899 Other long term (current) drug therapy; Z86.718 Personal history of other venous thrombosis and embolism; Z85.21 Personal history of malignant neoplasm of larynx; Z92.3 Personal history of irradiation; Z86.010 Personal history of colon polyps; Z90.49 Acquired absence of other specified parts of digestive tract; Z86.79 Personal history of other diseases of the circulatory system; Z95.5 Presence of coronary angioplasty implant and graft; Z86.19 Personal history of other infectious and parasitic diseases; Z98.42 Cataract extraction status, left eye; Z98.41 Cataract extraction status, right eye; Z88.5 Allergy status to narcotic agent; Z80.3 Family history of malignant neoplasm of breast; Z83.79 Family history of other diseases of the digestive system; Z83.2 Family history of diseases of the blood and blood-forming organs and certain disorders involving the immune mechanism
CPT/HCPCS: 36415; 71046; 80048; 80053; 82607; 83735; 83880; 84443; 84484; 85025; 85027; 85610; 85730; 92960; 93005; 93306; 94640; 96365; 96366; 96376; 99285

== ENCOUNTER → 2020-02-04 | Outpatient (CLI) | payer MEDICARE ==
--- NOTE | 2020-02-04 12:28 | CT ---
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 Delayed images through the kidneys and coronal/sagittal reconstructions performe d. CT DLP: 434.2 mGycm Automated exposure control for dose reduction was used. FINDINGS: CHEST: Heart normal size without pericardial effusion. Three-vessel coronary artery calcifications are prese nt. Ascending aorta borderline ectatic at 3.6 cm. Conventional arch vessel branching anatomy. Mild to mod erate atherosclerotic plaque and calcifications within the descending thoracic aorta with a fusiform aneurysm of the upper portion measuring up to 4.7 cm versus 4.67 m, previously. Second aneurysm on th e lower portion measuring 5.7 cm on sagittal series versus 5.3 cm, previously. Large caliber to the main right and the pulmonary arteries at 3.2 and 3.0 cm, respectively, compatibl e with underlying pulmonary arterial hypertension. No thoracic lymphadenopathy by CT size criteria. Mild bilateral gynecomastia. Moderate to advanced centrilobular emphysema. Stable focal nodular scarring anterior right midlung. S ome residual mild patchy scarring inferior lingula. Similar reticular changes at the right base could represent some fibrotic change. 4 mm peripheral right basilar pulmonary nodule, axial image 53 is unchanged. No new consolidation or pleural effusion. ABDOMEN: No focal liver lesion seen. No biliary ductal dilatation. Small ventral epigastric midline hernia containing omental fat measuring 2.1 cm wide. Cholecystectomy clips. Right kidney, spleen, pancreas, and adrenal glands show no gross abnormal body. Punctate 3 mm nonobstructive left renal calculus. There seems to be multiple surgical clips around the abdominal aorta at the level of the kidneys. Upper abdominal aorta at the level of the renal artery takeoff aneurysmal at 3.7 cm. Moderate to severe focal atherosclerotic narrowing at the origin of both common iliac arteries. Very tortuous iliac vessels. Partially visualized large aneurysms left common iliac artery measuring up to 4.0 cm and right common iliac artery measuring up to 2.9 cm. No dilated small bowel, free fluid, or free air. Moderate stool burden. No perisplenic inflammatory c hange seen. No mesenteric or retroperitoneal lymphadenopathy identified. Pelvis not imaged. BONES: Facet arthropathy lower lumbar spine. Grade 1 retrolisthesis at L4-L5 and L5-S1 with degenerative dis c disease. No osseous destructive process seen. IMPRESSION: 1. COPD WITH MODERATE TO ADVANCED CENTRILOBULAR EMPHYSEMA. PULMONARY ARTERIAL HYPERTENSION. 2. FUSIFORM ANEURYSM UPPER DESCENDING THORACIC AORTA AT 4.7 CM (VERSUS 4.6 CM, PREVIOUSLY) AND LOWER DESCENDING THORACIC AORTA 5.7 CM (VERSUS 5.3 CM, PREVIOUSLY). 3. PERIAORTIC SURGICAL CLIPS AT THE LEVEL OF THE KIDNEYS. CORRELATE WITH PATIENT'S SURGICAL HISTORY. ANEURYSMAL ABDOMINAL AORTA AT THE LEVEL OF THE RENAL ARTERY TAKE OFF AND 3.7 CM. 4. LARGE ANEURYSMS OF THE PARTIALLY VISUALIZED COMMON ILIAC ARTERIES UP TO 4.0 CM ON THE LEFT AND 2.9 CM ON THE RIGHT. VASCULAR SURGERY REFERRAL IS RECOMMENDED. 5. A 4 MM RIGHT BASILAR PULMONARY NODULE IS STABLE AND BENIGN.
== END | disposition home or self-care (01) ==
LOC: RADCTMAIN 10:39
PROVIDERS: ATTEND Family Medicine
DX: J43.2 Centrilobular emphysema (principal); I71.2 Thoracic aortic aneurysm, without rupture; R91.1 Solitary pulmonary nodule; C32.9 Malignant neoplasm of larynx, unspecified; I71.4 Abdominal aortic aneurysm, without rupture; I72.3 Aneurysm of iliac artery; Z98.890 Other specified postprocedural states
CPT/HCPCS: 82565; 84520; 71260; 74160; 36415; Q9967

== ENCOUNTER → 2020-05-24 | Outpatient (CLI) | payer MEDICARE ==
--- NOTE | 2020-05-24 13:38 | CT ---
EXAMINATION TYPE: CT angio thor/abd pel aorta DATE OF EXAM: 05/24/2020 COMPARISON: 02/04/2020 HISTORY: Aneurysm of the aorta CT DLP: 10/25/1979 mGycm. Automated Exposure Control for Dose Reduction was Utilized. CONTRAST: CT scan of the thorax, abdomen and pelvis is performed with 100 cc of Isovue 300. FINDINGS: LUNGS: diffuse emphysematous changes are seen. Interlobular septal thickening compatible with chronic interstitial lung disease. Stable appearing 3 mm nodule right lower lobe. Vague density along the ri ght lower lobe of image 59 measuring 1 cm stable. MEDIASTINUM: Ascending aorta measuring 4 cm compatible with mild aneurysmal dilation and previously m easuring 3.6 cm conventional arch vessel branching anatomy. Mild to moderate atherosclerotic plaque a nd calcifications within the descending thoracic aorta with a fusiform aneurysm of the upper portion measuring up to 4.7 cm versus 4.7 cm, previously. Second aneurysm on the lower portion measuring 5.7 cm on sagittal series versus 5.3 cm, previously. Large caliber to the main right and the pulmonary arteries at 3.2 and 3.0 cm, respectively, compatibl e with underlying pulmonary arterial hypertension. No pathologic adenopathy. OTHER: Postsurgical change in the epigastrium in the periaortic region noted.. LIVER/GB: No significant abnormality is appreciated. PANCREAS: No significant abnormality is seen. SPLEEN: No significant abnormality is seen. ADRENALS: Thickening of the left adrenal gland noted. Correlate for adrenal hyperplasia. KIDNEYS: No hydronephrosis. Cortical thinning involving the lower pole of the right kidney compatible with chronic medical renal disease. 1 cm hypodensity is indeterminate. Correlate with ultrasound. BOWEL: No significant abnormality is seen. LYMPH NODES: No greater than 1cm abdominal or pelvic lymph nodes are appreciated. OSSEOUS STRUCTURES: Hypertrophic and degenerative change of the spine. Arthropathy of the hips. Arthr opathy of the SI joints noted.. OTHER: There is aneurysmal dilation of the left common iliac artery measuring 3.7 cm. Right common il iac artery measures a maximal dimension of 2.7 cm. Findings stable IMPRESSION: 1. Stable ascending, and descending large thoracic aneurysm with a maximal dimension of 5.7 cm. 2. Abdominal aortic aneurysm measures a maximal dimension of 3.9 cm in the current exam there appears to be increased in size from the prior exam where the maximal dimension was 3.1 cm. 3. Stable bilateral iliac artery aneurysms. 4. COPD with changes of chronic interstitial pulmonary fibrosis. Bilateral lower lobe pulmonary nodul e stable. Vague density in the left lower lobe measuring 9 mm is somewhat indistinct margins but appe ars to be most likely postinflammatory and coronal images. Short-term follow-up could be obtained as clinically warranted.
== END | disposition home or self-care (01) ==
LOC: RADCTMAIN 11:00
PROVIDERS: ATTEND Surgery
DX: I71.2 Thoracic aortic aneurysm, without rupture (principal); I71.4 Abdominal aortic aneurysm, without rupture; I72.3 Aneurysm of iliac artery; J84.10 Pulmonary fibrosis, unspecified; J44.9 Chronic obstructive pulmonary disease, unspecified; R91.1 Solitary pulmonary nodule; J98.4 Other disorders of lung
CPT/HCPCS: 82565; 84520; 71275; 36415; 74174; Q9967

== ENCOUNTER → 2021-03-18 | Outpatient (CLI) | payer MEDICARE ==
[2021-03-18 15:08] LABS: African American GFR (CKD) >90 (>60 ml/min/1.73 sqM); Blood Urea Nitrogen 18 mg/dL (9-20); Non-African American GFR(CKD) 82 (>60 ml/min/1.73 sqM)
--- NOTE | 2021-03-21 09:19 | CT ---
EXAMINATION TYPE: CT angio thor/abd pel aorta DATE OF EXAM: 03/18/2021 COMPARISON: 05/24/2020 HISTORY: 80-year-old male I71.4, f/u AAA TECHNIQUE: Contiguous axial scanning of the chest, abdomen, and pelvis performed with IV Contrast, pa tient injected with 100 mL of Isovue 370. Coronal/sagittal MIP reconstructions performed. 3-D constru ctions generated on a dedicated independent workstation. CT DLP: 324.8 mGycm Automated exposure control for dose reduction was used. FINDINGS: CHEST: There is severe patient movement degrading the exam. Heart is enlarged with LAD coronary artery calcifications. Large caliber to the main right and left pulmonary arteries measuring up to 2.8 cm suggesting underly ing pulmonary hypertension. No appreciable thoracic lymphadenopathy allowing for the extensive motion artifact. There is patchy opacity inferior lingula which is new and increased. Moderate to advanced centrilobular emphysema. 5 mm right lower lobe pulmonary nodule is unchanged. VASCULATURE: Aortic root is ectatic at 3.6 cm, unchanged. Ascending aorta is ectatic at 3.8 cm, unchanged. Proximal arch measures 3.7 cm, unchanged. Upper descending thoracic aorta measures ectatic at 3.5 cm, unchanged. Fusiform aneurysm upper third descending thoracic aorta measuring up to 5.0 cm versus 4.9 cm, previou sly. Second fusiform aneurysm lower descending thoracic aorta measuring up to 6.1 cm, unchanged. Upper abdominal aorta aneurysmal at 3.7 cm, unchanged. At least moderate atherosclerotic narrowing at the origin of the bilateral renal arteries and origin of the celiac axis. Graft material of the infrarenal abdominal aorta, likely extending into the proximal common iliac art eries. There is bilobed fusiform aneurysm of the mid to distal right common iliac artery up to 2.1 followed by 2.9 cm (versus 2.1 and 2.7 cm, previously). Much larger fusiform aneurysm distal left common iliac artery up to 4.2 cm versus 3.9 cm, previously. Left internal iliac artery aneurysm at 2.3 cm versus 2.2 cm, previously. ABDOMEN: Reflux of contrast into hepatic veins. A 4 mm nonobstructive left renal calculus. Otherwise, arterial phase imaging of the liver, kidneys, spleen, and pancreas show no gross abnormality. Mild diffuse thickening of the left adrenal gland is unchanged. No dilated small bowel, free fluid, or free air. No mesenteric or retroperitoneal lymphadenopathy melanie ntified. Moderate stool burden. No pericolonic inflammatory change. PELVIS: Moderate circumferential bladder wall thickening. Stable dropped clip left posterior pelvis. Prostate gland measures 4.5 cm wide. No abnormal fluid collection in the pelvis or pelvic lymphadenopathy. BONES: Some degenerative change at the hips. Degenerative bridging ankylosis of the right SI joint. Hypertro phic facet arthropathy mid to lower lumbar spine. Moderate to advanced degenerative disc disease L3-L 4 and L4-L5. Grade 1 retrolisthesis L4-L5. There is L5 hemisacralization. Unable to assess accurate alignment at T11-T12, T7-T8, and T5-C6 due to the severe patient motion. IMPRESSION: 0. INCIDENTAL: Patchy opacity inferior lingula suspicious for pneumonia. Clinically correlate. 1. Fusiform aneurysm of the upper third descending thoracic aorta (5.0 cm versus 4.9 cm, previously). There is a second fusiform aneurysm of the lower descending thoracic aorta at 6.1 cm, unchanged. 2. Stable mild aneurysm of the upper abdominal aorta at 3.7 cm. Graft material of the infrarenal abdo latoya aorta seems to extend into the proximal common iliac arteries. 3. Bilobed fusiform aneurysm mid to distal right common iliac artery measuring up to 2.9 cm (versus 2 .7 cm, previously). 4. Much larger fusiform aneurysm distal left common iliac artery at 4.2 cm (increased from 3.9 cm, pr eviously). Vascular surgery evaluation should be considered. 5. Left internal iliac artery aneurysm stable to minimally larger at 2.3 cm versus 2.2 cm, previously . 6. Moderate circumferential bladder wall thickening could represent chronic bladder wall hypertrophy. Correlate to exclude cystitis.
== END | disposition home or self-care (01) ==
LOC: RADCTMAIN 14:27
PROVIDERS: ATTEND Surgery
DX: I71.6 Thoracoabdominal aortic aneurysm, without rupture (principal); I72.3 Aneurysm of iliac artery
CPT/HCPCS: 82565; 84520; 71275; 36415; 74174; Q9967

== ENCOUNTER → 2021-03-23 | Outpatient (CLI) | payer MEDICARE ==
--- NOTE | 2021-03-23 13:19 | XR ---
EXAMINATION TYPE: XR chest 2V DATE OF EXAM: 03/23/2021 COMPARISON: 04/27/2019 TECHNIQUE: PA and lateral views submitted. HISTORY: Cough FINDINGS: The lungs are clear and there is no pneumothorax, pleural effusion, or focal pneumonia. Hyperinflat ion suggestive of COPD. There is prominence of the left hilum with a convex outer margin. This appear s related to a thoracic aortic aneurysm by recent CT scan. IMPRESSION: 1. No acute process. Correlate for COPD. 2. Thoracic aortic aneurysm
== END | disposition home or self-care (01) ==
LOC: RADXRMAIN 12:31
PROVIDERS: ATTEND Physician Assistant
DX: I71.2 Thoracic aortic aneurysm, without rupture (principal)
CPT/HCPCS: 71046

== ENCOUNTER 2021-06-20 08:01 | Observation (INO) | payer MEDICARE ==
[2021-06-20] MEDS ORDERED: methylPREDNISolone SOD SUCCI 125 MG/2 ML VIAL IV STA (08:42)
[2021-06-20] MEDS ORDERED: IPRATROPIUM-ALBUTEROL 3 ML NEB INHALATION STA (08:42)
--- NOTE | 2021-06-20 08:57 | ED ---
General Adult HPI - General Chief complaint: Shortness of Breath Stated complaint: SOB Time Seen by Provider: 06/20/21 08:05 Source: patient, family, RN notes reviewed, old records reviewed Mode of arrival: wheelchair Limitations: no limitations - History of Present Illness Initial comments: This is a 80-year-old male who presents emergency Department with a past medical history significant for multiple thoracic and abdominal aneurysms. Patient states he is unable to surgery because of his COPD. Patient comes in today complaining that over the last 4 days he's had difficulty breathing is getting progressively worse per patient states he also has been slowly losing his voice over the last 4 days. Patient denies any fever chills. Patient states he does have a cough with positive sputum production. Patient denies chest pain or palpitations. Patient denies abdominal pain patient denies nausea vomiting diarrhea. - Related Data Home Medications Medication Instructions Recorded Confirmed ALPRAZolam [Xanax] 0.5 mg PO HS 08/26/15 06/20/21 Mometasone/Formoterol [Dulera 200 2 puff INHALATION RT-BID 08/26/15 06/20/21 Mcg-5 Mcg Inhaler] Nitroglycerin Sl Tabs [Nitrostat] 0.4 mg SL Q5M PRN 01/10/18 06/20/21 Albuterol Nebulized [Ventolin 2.5 mg INHALATION RT-QID 04/27/19 06/20/21 Nebulized] Levothyroxine Sodium [Synthroid] 150 mcg PO DAILY 04/27/19 06/20/21 Rivaroxaban [Xarelto] 15 mg PO DAILY 04/27/19 06/20/21 Digoxin [Lanoxin] 125 mcg PO DAILY 11/09/20 06/20/21 Albuterol Sulfate [Proair 1 puff INHALATION RT-QID PRN 06/20/21 06/20/21 Respiclick] Aspirin 81 mg PO HS 06/20/21 06/20/21 Azithromycin [Zithromax Z-pack (6 See Taper PO DIRECTED 06/20/21 06/20/21 tabs)] Furosemide [Lasix] 40 mg PO DAILY 06/20/21 06/20/21 Ipratropium Nebulized [Atrovent 0.5 mg INHALATION RT-QID 06/20/21 06/20/21 Nebulized 0.2 MG/ML] Losartan [Cozaar] 25 mg PO HS 06/20/21 06/20/21 Melatonin 3 mg PO HS 06/20/21 06/20/21 Metoprolol Tartrate [Lopressor] 50 mg PO BID 06/20/21 06/20/21 Montelukast [Singulair] 10 mg PO DAILY 06/20/21 06/20/21 predniSONE 5 mg PO DIRECTED 06/20/21 06/20/21 predniSONE See Taper PO DAILY 06/20/21 06/20/21 Allergies Allergy/AdvReac Type Severity Reaction Status Date / Time codeine AdvReac Nausea & Verified 06/20/21 10:06 Vomiting Review of Systems ROS Statement: Those systems with pertinent positive or pertinent negative responses have been documented in the HPI. ROS Other: All systems not noted in ROS Statement are negative. 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 cardiac cath with stenting Past Anesthesia/Blood Transfusion Reactions: No Reported Reaction Past Psychological History: No Psychological Hx Reported Smoking Status: Current every day smoker Past Alcohol Use History: None Reported Past Drug Use History: None Reported - Past Family History Mother Family Medical History: Cancer Additional Family Medical History / Comment(s): breast CA Father Additional Family Medical History / Comment(s): COLOSTOMY Daughter(s) Family Medical History: Deep Vein Thrombosis (DVT) Additional Family Medical History / Comment(s): HX FACTOR FIVE LEIDEN General Exam - General Exam Comments Initial Comments: GENERAL: Patient is well-developed and well-nourished. Patient is nontoxic and well- hydrated and is in no acute distress. ENT: Neck is soft and supple. No significant lymphadenopathy is noted. Oropharynx is clear. Moist mucous membranes. Neck has full range of motion without eliciting any pain. EYES: The sclera were anicteric and conjunctiva were pink and moist. Extraocular movements were intact and pupils were equal round and reactive to light. Eyelids were unremarkable. PULMONARY: Unlabored respirations. Good breath sounds bilaterally. No audible rales rhonchi or wheezing was noted. CARDIOVASCULAR: There is a regular rate and rhythm without any murmurs gallops or rubs. ABDOMEN: Soft and nontender with normal bowel sounds. SKIN: Skin is clear with no lesions or rashes and otherwise unremarkable. NEUROLOGIC: Patient is alert and oriented x3. Cranial nerves II through XII are grossly intact. Motor and sensory are also intact. Normal speech, volume and content. Symmetrical smile. MUSCULOSKELETAL: Normal extremities with adequate strength and full range of motion. LYMPHATICS: No significant lymphadenopathy is noted PSYCHIATRIC: Normal psychiatric evaluation. Limitations: no limitations Course Vital Signs 06/20/21 06/20/21 06/20/21 08:01 08:12 09:16 Temperature 97.1 F L Pulse Rate 61 70 Respiratory 24 26 H Rate Blood Pressure 124/66 O2 Sat by Pulse 90 L Oximetry 06/20/21 09:27 Temperature Pulse Rate 66 Respiratory Rate Blood Pressure O2 Sat by Pulse Oximetry Medical Decision Making - Medical Decision Making Initial EKG showed a sinus rhythm with occasional PVCs at 75 bpm PA interval 118 QRS is 84 QT interval 360 QTC is 406 per patient's EKG shows T-wave inversions inferiorly. Second EKG was done because the patient was experiencing a little bit of chest pain. EKG shows normal sinus rhythm at 77 bpm with a first-degree AV block QRSs 126 QT interval is 42 QTC is 454. Patient shows T-wave inversions in inferior leads as well as precordial leads V5 and V6. Chest x-ray showed some pulmonary edema. Patient has had a little bit of swelling to the ankles more than normal. Patient was given Lasix in the emergency department. Since patient is coughing up sputum according to the patient was started on antibiotics. I spoke with Dr. Meyers and I admitted the patient and wrote admitting orders - Lab Data Result diagrams: 06/20/21 08:48 06/20/21 08:48 Lab Results 06/20/21 06/20/21 06/20/21 Range/Units 08:48 08:48 08:48 WBC 12.1 H (3.8-10.6) k/uL RBC 4.22 L (4.30-5.90) m/uL Hgb 11.4 L (13.0-17.5) gm/dL Hct 37.0 L (39.0-53.0) % MCV 87.8 (80.0-100.0) fL MCH 27.0 (25.0-35.0) pg MCHC 30.8 L (31.0-37.0) g/dL RDW 14.9 (11.5-15.5) % Plt Count 238 (150-450) k/uL MPV 7.7 Neutrophils % 85 % Lymphocytes % 6 % Monocytes % 8 % Eosinophils % 0 % Basophils % 0 % Neutrophils # 10.2 H (1.3-7.7) k/uL Lymphocytes # 0.7 L (1.0-4.8) k/uL Monocytes # 1.0 (0-1.0) k/uL Eosinophils # 0.0 (0-0.7) k/uL Basophils # 0.0 (0-0.2) k/uL Hypochromasia Marked Poikilocytosis Slight PT 13.2 H (9.0-12.0) sec INR 1.3 H (<1.2) APTT 28.3 (22.0-30.0) sec Sodium (137-145) mmol/L Potassium (3.5-5.1) mmol/L Chloride (98-107) mmol/L Carbon Dioxide (22-30) mmol/L Anion Gap mmol/L BUN (9-20) mg/dL Creatinine (0.66-1.25) mg/dL Est GFR (CKD-EPI)AfAm (>60 ml/min/1.73 sqM) Est GFR (CKD-EPI)NonAf (>60 ml/min/1.73 sqM) Glucose (74-99) mg/dL Plasma Lactic Acid Truman (0.7-2.0) mmol/L Calcium (8.4-10.2) mg/dL Magnesium (1.6-2.3) mg/dL Total Bilirubin (0.2-1.3) mg/dL AST (17-59) U/L ALT (4-49) U/L Alkaline Phosphatase (38-126) U/L Troponin I (0.000-0.034) ng/mL NT-Pro-B Natriuret Pep pg/mL Total Protein (6.3-8.2) g/dL Albumin (3.5-5.0) g/dL Coronavirus (PCR) Not Detected (Not Detectd) 06/20/21 06/20/21 06/20/21 Range/Units 08:48 08:48 08:48 WBC (3.8-10.6) k/uL RBC (4.30-5.90) m/uL Hgb (13.0-17.5) gm/dL Hct (39.0-53.0) % MCV (80.0-100.0) fL MCH (25.0-35.0) pg MCHC (31.0-37.0) g/dL RDW (11.5-15.5) % Plt Count (150-450) k/uL MPV Neutrophils % % Lymphocytes % % Monocytes % % Eosinophils % % Basophils % % Neutrophils # (1.3-7.7) k/uL Lymphocytes # (1.0-4.8) k/uL Monocytes # (0-1.0) k/uL Eosinophils # (0-0.7) k/uL Basophils # (0-0.2) k/uL Hypochromasia Poikilocytosis PT (9.0-12.0) sec INR (<1.2) APTT (22.0-30.0) sec Sodium 135 L (137-145) mmol/L Potassium 3.9 (3.5-5.1) mmol/L Chloride 96 L (98-107) mmol/L Carbon Dioxide 33 H (22-30) mmol/L Anion Gap 6 mmol/L BUN 33 H (9-20) mg/dL Creatinine 0.89 (0.66-1.25) mg/dL Est GFR (CKD-EPI)AfAm >90 (>60 ml/min/1.73 sqM) Est GFR (CKD-EPI)NonAf 80 (>60 ml/min/1.73 sqM) Glucose 98 (74-99) mg/dL Plasma Lactic Acid Truman 1.5 (0.7-2.0) mmol/L Calcium 9.5 (8.4-10.2) mg/dL Magnesium 2.2 (1.6-2.3) mg/dL Total Bilirubin 0.6 (0.2-1.3) mg/dL AST 29 (17-59) U/L ALT 14 (4-49) U/L Alkaline Phosphatase 71 (38-126) U/L Troponin I 0.025 (0.000-0.034) ng/mL NT-Pro-B Natriuret Pep pg/mL Total Protein 6.8 (6.3-8.2) g/dL Albumin 3.6 (3.5-5.0) g/dL Coronavirus (PCR) (Not Detectd) 06/20/21 Range/Units 08:48 WBC (3.8-10.6) k/uL RBC (4.30-5.90) m/uL Hgb (13.0-17.5) gm/dL Hct (39.0-53.0) % MCV (80.0-100.0) fL MCH (25.0-35.0) pg MCHC (31.0-37.0) g/dL RDW (11.5-15.5) % Plt Count (150-450) k/uL MPV Neutrophils % % Lymphocytes % % Monocytes % % Eosinophils % % Basophils % % Neutrophils # (1.3-7.7) k/uL Lymphocytes # (1.0-4.8) k/uL Monocytes # (0-1.0) k/uL Eosinophils # (0-0.7) k/uL Basophils # (0-0.2) k/uL Hypochromasia Poikilocytosis PT (9.0-12.0) sec INR (<1.2) APTT (22.0-30.0) sec Sodium (137-145) mmol/L Potassium (3.5-5.1) mmol/L Chloride (98-107) mmol/L Carbon Dioxide (22-30) mmol/L Anion Gap mmol/L BUN (9-20) mg/dL Creatinine (0.66-1.25) mg/dL Est GFR (CKD-EPI)AfAm (>60 ml/min/1.73 sqM) Est GFR (CKD-EPI)NonAf (>60 ml/min/1.73 sqM) Glucose (74-99) mg/dL Plasma Lactic Acid Truman (0.7-2.0) mmol/L Calcium (8.4-10.2) mg/dL Magnesium (1.6-2.3) mg/dL Total Bilirubin (0.2-1.3) mg/dL AST (17-59) U/L ALT (4-49) U/L Alkaline Phosphatase (38-126) U/L Troponin I (0.000-0.034) ng/mL NT-Pro-B Natriuret Pep 3360 pg/mL Total Protein (6.3-8.2) g/dL Albumin (3.5-5.0) g/dL Coronavirus (PCR) (Not Detectd) Disposition Clinical Impression: Acute pulmonary edema, Bronchitis Disposition: ADMITTED IP TO THIS HOSP Referrals: Kayla Meyers DO [Primary Care Provider] - 1-2 days Time of Disposition: 11:04
[2021-06-20 09:08] LABS: Basophils % (A) 0 %; Eosinophils % (A) 0 %; HGB 11.4 gm/dL (13.0-17.5); Hypochromasia Marked; Lymphocytes # (A) 0.7 k/uL (1.0-4.8); Lymphocytes % (A) 6 %; MCHC 30.8 g/dL (31.0-37.0); MCV 87.8 fL (80.0-100.0); Mean Platelet Volume 7.7; Monocytes % (A) 8 %; Neutrophils # (A) 10.2 k/uL (1.3-7.7); Neutrophils % (A) 85 %; Platelet Count 238 k/uL (150-450); Poikilocytosis Slight; RBC 4.22 m/uL (4.30-5.90); RDW 14.9 % (11.5-15.5); WBC 12.1 k/uL (3.8-10.6)
[2021-06-20 09:25] LABS: INR 1.3 (<1.2); Partial Thromboplastin Time 28.3 sec (22.0-30.0); Prothrombin Time 13.2 sec (9.0-12.0)
--- NOTE | 2021-06-20 09:26 | XR ---
EXAMINATION TYPE: XR chest 2V DATE OF EXAM: 06/20/2021 COMPARISON: Chest x-ray 03/23/2021 CT 03/18/2021 HISTORY: Difficulty breathing TECHNIQUE: Frontal and lateral views of the chest are obtained. FINDINGS: There is no focal air space opacity, pleural effusion, or pneumothorax seen. Prominent edy g volume could be indicative of underlying COPD. The cardiac silhouette size is enlarged, there are o verlying leads. Thoracic aorta is prominent as noted on previous exams. Interstitium is increased. Ce ntral vascularity is prominent. The osseous structures are intact. IMPRESSION: Correlate for possible pulmonary venous hypertension and interstitial edema, patient wit h underlying interstitial lung disease however. There is underlying emphysema
[2021-06-20 09:27] LABS: ALT 14 U/L (4-49); AST 29 U/L (17-59); African American GFR (CKD) >90 (>60 ml/min/1.73 sqM); Albumin 3.6 g/dL (3.5-5.0); Alkaline Phosphatase 71 U/L (38-126); Anion Gap 6 mmol/L; Blood Urea Nitrogen 33 mg/dL (9-20); Calcium 9.5 mg/dL (8.4-10.2); Carbon Dioxide 33 mmol/L (22-30); Chloride 96 mmol/L (98-107); Glucose 98 mg/dL (74-99); Magnesium 2.2 mg/dL (1.6-2.3); Non-African American GFR(CKD) 80 (>60 ml/min/1.73 sqM); Potassium 3.9 mmol/L (3.5-5.1); Sodium 135 mmol/L (137-145); Total Bilirubin 0.6 mg/dL (0.2-1.3); Total Protein 6.8 g/dL (6.3-8.2)
[2021-06-20] MEDS ORDERED: FUROSEMIDE 10 MG/ML 4 ML VIAL IV STA (10:26)
--- NOTE | 2021-06-20 13:02 | P.CRDCN ---
History of Present Illness History of present illness: This is a pleasant 78-year-old male past medical history significant for paroxysmal atrial fibrillation on long-term anticoagulation, COPD, coronary artery disease status post stent placement LAD with total occlusion of the RCA, ischemic cardiomyopathy, peripheral vascular disease status post left carotid endarterectomy, thoracic aortic aneurysm follows with Dr. Pickard unable to do surgery due to lung status, autoimmune hepatitis. He continues to smoke tobacco. He follows in the office with Dr. Patel. We have been consultation for pulmonary edema. Patient presents to the emergency department with complaints of worsening shortness of breath over the past week. Also with some lower extremity edema. He also has symptoms of orthopnea. He has been sleeping in a recliner morales ir. He also endorses increased cough. Dyspnea on exertion. He does not wear oxygen at home. Patient denies any chest pain, palpitations, lightheadedness, dizziness, symptoms of syncope or pre-syncope. He denies any abdominal pain, bleeding, nausea, or vomiting. He continues to smoke 1/2 PPD. He denies history of stroke or diabetes. DIAGNOSTICS: EKG sinus rhythm, HR 75, PVCs, T wave inversions in inferior leads and V5 V6. Echo 04/2019- EF 40-45%, LA is severely dialted, Mild MR, mild TR Labs WBC 12.1, Hgb 11.4, Plt 238, INR 1.3, Sodium 135, K 3.9, BUN 33, sCr 0.89, troponin negative x1, mag 2.2, Pro BNP 3360. Chest Xray report- possible pulmonary venous hypertnesion, interstitial edema, underlying interstitial lung disease. Current home medications include prednisone, Xarelto 15mg daily, PRN nitro, sinulair, lopressor 50mg BID, losartan 25mg daily, synthroid, digoxin 40mg daily, aspirin 81mg daily, Lasix 40mg daily, xanax, albuterol Cardiac catheterization in 2019 revealed 80% stenosis in proximal LAD, RCA is totally occluded, left main with mild to moderate calcification, 20-30% stenosis left posterior circumflex At the time of my exam: CONSTITUTIONAL: Denies fever. Denies chills. EYES: Denies blurred vision. Denies vision changes. Denies eye pain. EARS, NOSE, MOUTH & THROAT: Denies headache. Denies sore throat. Denies ear pain. CARDIOVASCULAR: Denies chest pain. + shortness of breath. +orthopnea. Denies PND. Denies palpitations RESPIRATORY: + cough. GASTROINTESTINAL: Denies abdominal pain. Denies diarrhea. Denies constipation. Denies nausea. Denies vomiting. MUSCULOSKELETAL: Denies myalgias. INTEGUMENTARY: Denies pruitis. Denies rash. NEUROLOGIC: Denies numbness. Denies tingling. Denies weakness. PSYCHIATRIC: Denies anxiety. Denies depression. ENDOCRINE: Denies fatigue. Denies weight change. Denies polydipsia. Denies polyurina. GENITOURINARY: Denies burning, hematuria or urgency with micturation. HEMATOLOGIC: Denies history of anemia. Denies bleeding. PHYSICAL EXAMINATION Blood pressure 142/116, HR 78, afebrile SpO2 96% on 4.5L nasal cannula GENERAL: Appears short of breath, audible wheeze noted. HEENT: Head is atraumatic, normocephalic. Pupils are equal, round. Sclerae anicteric. Conjunctivae are clear. Mucous membranes of the mouth are moist. Neck is supple. There is no jugular venous distention. LUNGS: Bilateral crackles in the bases, expiratory wheezes in all lung field. Audible wheeze. No chest wall tenderness is noted on palpation or with deep breathing. HEART:Regular rate and rhythm without murmurs, rubs or gallops. S1 and S2 heard. ABDOMEN: Soft, nontender. Bowel sounds are heard. EXTREMITIES: 1+ bilateral lower extremity edema and no calf tenderness noted. VASCULAR: Radial and dorsalis pedis pulses palpated, no evidence of clubbing. NEUROLOGIC: Patient is awake, alert and oriented x3. ASSESSMENT Acute on chronic systolic heart failure COPD exacerbation Chronic nicotine dependence History of Thoracic and abdominal aortic aneurysm Paroxysmal atrial fibrillation on Xarelto Ischemic cardiomyopathy Coronary artery disease status post stent placement to the LAD, chronically occluded RCA Hypertension Dyslipidemia PLAN -Obtain 2D echocardiogram -Recommend Pulmonary consult -IV Lasix 40mg BID -I/Os, daily weights, monitor renal function and electrolytes -Hold Digoxin -Continue Xarelto, Losartan, and metoprolol tartrate -Further recommendations based on clinical course Nurse Practitioner note has been reviewed, I agree with a documented findings and plan of care. Patient was seen and examined. Past Medical History Past Medical History: Atrial Fibrillation, COPD, Deep Vein Thrombosis (DVT), Myocardial Infarction ([place]), Thyroid Disorder Additional Past Medical History / Comment(s): HX ABDOMINAL AORTIC ANEURYSM,VOCAL CORD CA-2008 RADIATION,AUTOIMMUNE HEPATITIS, COLON POLYPS, rt elbow bursa, dysphagia, rt carotid artery blocked Last Myocardial Infarction Date:: UNK History of Any Multi-Drug Resistant Organisms: None Reported Past Surgical History: Cholecystectomy Additional Past Surgical History / Comment(s): ABDOMINAL AORTIC ANEURYSM REPAIR WITH STENTS,COLONOSCOPY,NHAN CATARACTS, lt carotid artery surgery. cardiac cath with stenting Past Anesthesia/Blood Transfusion Reactions: No Reported Reaction Past Psychological History: No Psychological Hx Reported Smoking Status: Current every day smoker Past Alcohol Use History: None Reported Past Drug Use History: None Reported - Past Family History Mother Family Medical History: Cancer Additional Family Medical History / Comment(s): breast CA Father Additional Family Medical History / Comment(s): COLOSTOMY Daughter(s) Family Medical History: Deep Vein Thrombosis (DVT) Additional Family Medical History / Comment(s): HX FACTOR FIVE LEIDEN Medications and Allergies Home Medications Medication Instructions Recorded Confirmed Type ALPRAZolam [Xanax] 0.5 mg PO HS 08/26/15 06/20/21 History Mometasone/Formoterol [Dulera 200 2 puff INHALATION RT-BID 08/26/15 06/20/21 History Mcg-5 Mcg Inhaler] Nitroglycerin Sl Tabs [Nitrostat] 0.4 mg SL Q5M PRN 01/10/18 06/20/21 History Albuterol Nebulized [Ventolin 2.5 mg INHALATION RT-QID 04/27/19 06/20/21 History Nebulized] Levothyroxine Sodium [Synthroid] 150 mcg PO DAILY 04/27/19 06/20/21 History Rivaroxaban [Xarelto] 15 mg PO DAILY 04/27/19 06/20/21 History Digoxin [Lanoxin] 125 mcg PO DAILY 11/09/20 06/20/21 History Albuterol Sulfate [Proair 1 puff INHALATION RT-QID PRN 06/20/21 06/20/21 History Respiclick] Aspirin 81 mg PO HS 06/20/21 06/20/21 History Azithromycin [Zithromax Z-pack (6 See Taper PO DIRECTED 06/20/21 06/20/21 History tabs)] Furosemide [Lasix] 40 mg PO DAILY 06/20/21 06/20/21 History Ipratropium Nebulized [Atrovent 0.5 mg INHALATION RT-QID 06/20/21 06/20/21 History Nebulized 0.2 MG/ML] Losartan [Cozaar] 25 mg PO HS 06/20/21 06/20/21 History Melatonin 3 mg PO HS 06/20/21 06/20/21 History Metoprolol Tartrate [Lopressor] 50 mg PO BID 06/20/21 06/20/21 History Montelukast [Singulair] 10 mg PO DAILY 06/20/21 06/20/21 History predniSONE 5 mg PO DIRECTED 06/20/21 06/20/21 History predniSONE See Taper PO DAILY 06/20/21 06/20/21 History Allergies Allergy/AdvReac Type Severity Reaction Status Date / Time codeine AdvReac Nausea & Verified 06/20/21 10:06 Vomiting Physical Exam Vitals: Vital Signs Temp Pulse Resp BP Pulse Ox 06/20/21 11:00 65 136/70 06/20/21 10:00 75 133/78 99 06/20/21 09:27 66 06/20/21 09:16 70 06/20/21 09:00 121/81 06/20/21 08:16 94 L 06/20/21 08:12 26 H 06/20/21 08:01 97.1 F L 61 24 124/66 90 L Intake and Output 06/19/21 06/20/21 06/20/21 22:59 06:59 14:59 Other: Weight 59.874 kg Results 06/20/21 08:48 06/20/21 08:48 Cardiac Enzymes 06/20/21 06/20/21 Range/Units 08:48 08:48 AST 29 (17-59) U/L Troponin I 0.025 (0.000-0.034) ng/mL Coagulation 06/20/21 Range/Units 08:48 PT 13.2 H (9.0-12.0) sec APTT 28.3 (22.0-30.0) sec CBC 06/20/21 Range/Units 08:48 WBC 12.1 H (3.8-10.6) k/uL RBC 4.22 L (4.30-5.90) m/uL Hgb 11.4 L (13.0-17.5) gm/dL Hct 37.0 L (39.0-53.0) % Plt Count 238 (150-450) k/uL Comprehensive Metabolic Panel 06/20/21 Range/Units 08:48 Sodium 135 L (137-145) mmol/L Potassium 3.9 (3.5-5.1) mmol/L Chloride 96 L (98-107) mmol/L Carbon Dioxide 33 H (22-30) mmol/L BUN 33 H (9-20) mg/dL Creatinine 0.89 (0.66-1.25) mg/dL Glucose 98 (74-99) mg/dL Calcium 9.5 (8.4-10.2) mg/dL AST 29 (17-59) U/L ALT 14 (4-49) U/L Alkaline Phosphatase 71 (38-126) U/L Total Protein 6.8 (6.3-8.2) g/dL Albumin 3.6 (3.5-5.0) g/dL Current Medications Generic Name Dose Route Start Last Admin Trade Name Freq PRN Reason Stop Dose Admin Furosemide 40 mg 06/20/21 16:00 Furosemide 10 Mg/Ml 4 Ml Vial IV Q8HR OMI Ceftriaxone Sodium 1 gm/ 50 mls @ 100 mls/hr 06/21/21 09:00 Sodium Chloride IVPB Q24HR OMI Nitroglycerin 1 inch 06/20/21 13:00 Nitroglycerin Oint 1 Inch/Gm Packet TOPICAL QID OMI Intake and Output 06/19/21 06/20/21 06/20/21 22:59 06:59 14:59 Other: Weight 59.874 kg Patient Weight 06/21/21 06:59 Weight 59.874 kg 06/20/21 08:48 06/20/21 08:48
[2021-06-20] MEDS: NITROGLYCERIN OINT 1 INCH/GM PACKET TOPICAL SCH ×5 (13:31→21:05)
[2021-06-20] MEDS: NICOTINE 14MG/24HR PATCH TRANSDERM SCH (14:04)
[2021-06-20] MEDS: methylPREDNISolone SOD SUCCI 125 MG/2 ML VIAL IV SCH ×2 (14:39→20:55)
--- NOTE | 2021-06-20 14:40 | P.CNPUL ---
History of Present Illness Consult date: 06/20/21 Reason for consult: dyspnea History of present illness: This is a pleasant 78-year-old male past medical history significant for paroxysmal atrial fibrillation on long-term anticoagulation, COPD, coronary artery disease status post stent placement LAD with total occlusion of the RCA, ischemic cardiomyopathy, peripheral vascular disease status post left carotid endarterectomy, thoracic aortic aneurysm follows with Dr. Pickard unable to do surgery due to lung status, autoimmune hepatitis. He continues to smoke tobacco. The patient is known to have advanced COPD. Nevertheless according to the family, he is not oxygen dependent. He has seen us in our office many years back. The patient is on a combination of Dulera 2 puffs twice a day, pro-air as needed, and he has been also maintained on prednisone 5 mg on a daily basis. He does nebulizer with albuterol on as needed basis up to 4 times a day in combination with ipratropium bromide. He is still smoking and he smokes approximately 15 cigarettes on a daily basis. He comes into the hospital because of worsening shortness of breath. His cardiac rhythm is sinus at this point in time. His echoes at 12 normal coagulation profile, normal electrolytes, serum bicarbonate 33, proBNP level is 3360" with 19 testing was negative. Chest x-ray shows hyperinflation in addition to some background COPD along with mild pulmonary vascular congestion. Since his arrival, the patient was given IV Rocephin, IV Lasix 40 mg every 12 hours, he hasn't been started on breathing treatments. He has not been started on his stomach steroids. Review of Systems Constitutional: Reports fatigue, Reports weakness Eyes: denies as per HPI, denies blurred vision, denies bulging eye, denies decreased vision, denies diplopia, denies discharge, denies dry eye, denies irritation, denies itching, denies pain, denies photophobia, denies loss of peripheral vision, denies loss of vision, denies tunnel vision/blind spots Ears: deny: decreased hearing, ear discharge, earache, tinnitus Ears, nose, mouth and throat: Reports as per HPI Breasts: absent: as per HPI, gynecomastia Cardiovascular: Reports decreased exercise tolerance, Reports dyspnea on exertion Respiratory: Reports cough, Reports cough with sputum, Reports dyspnea, Reports wheezing Gastrointestinal: Reports as per HPI Genitourinary: Reports as per HPI Musculoskeletal: Reports as per HPI Musculoskeletal: absent: ankle pain, ankle stiffness, ankle swelling, as per HPI, elbow pain, elbow stiffness, elbow swelling, foot pain, foot stiffness, foot swelling, hand pain, hand stiffness, hand swelling, hip pain, hip stiffness, hip swelling, knee pain, knee stiffness, knee swelling, shoulder pain, shoulder stiffness, shoulder swelling, wrist pain, wrist stiffness, wrist swelling Integumentary: Reports as per HPI Neurological: Reports as per HPI Psychiatric: Reports as per HPI Endocrine: Reports as per HPI, Reports fatigue Hematologic/Lymphatic: Reports as per HPI Allergic/Immunologic: Reports as per HPI Past Medical History Past Medical History: Atrial Fibrillation, COPD, Deep Vein Thrombosis (DVT), Myocardial Infarction (RI), Thyroid Disorder Additional Past Medical History / Comment(s): HX ABDOMINAL AORTIC ANEURYSM,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 cardiac cath with stenting Past Anesthesia/Blood Transfusion Reactions: No Reported Reaction Past Psychological History: No Psychological Hx Reported Smoking Status: Current every day smoker Past Alcohol Use History: None Reported Past Drug Use History: None Reported - Past Family History Mother Family Medical History: Cancer Additional Family Medical History / Comment(s): breast CA Father Additional Family Medical History / Comment(s): COLOSTOMY Daughter(s) Family Medical History: Deep Vein Thrombosis (DVT) Additional Family Medical History / Comment(s): HX FACTOR FIVE LEIDEN Medications and Allergies Home Medications Medication Instructions Recorded Confirmed Type ALPRAZolam [Xanax] 0.5 mg PO HS 08/26/15 06/20/21 History Mometasone/Formoterol [Dulera 200 2 puff INHALATION RT-BID 08/26/15 06/20/21 History Mcg-5 Mcg Inhaler] Nitroglycerin Sl Tabs [Nitrostat] 0.4 mg SL Q5M PRN 01/10/18 06/20/21 History Albuterol Nebulized [Ventolin 2.5 mg INHALATION RT-QID 04/27/19 06/20/21 History Nebulized] Levothyroxine Sodium [Synthroid] 150 mcg PO DAILY 04/27/19 06/20/21 History Rivaroxaban [Xarelto] 15 mg PO DAILY 04/27/19 06/20/21 History Digoxin [Lanoxin] 125 mcg PO DAILY 11/09/20 06/20/21 History Albuterol Sulfate [Proair 1 puff INHALATION RT-QID PRN 06/20/21 06/20/21 History Respiclick] Aspirin 81 mg PO HS 06/20/21 06/20/21 History Azithromycin [Zithromax Z-pack (6 See Taper PO DIRECTED 06/20/21 06/20/21 History tabs)] Furosemide [Lasix] 40 mg PO DAILY 06/20/21 06/20/21 History Ipratropium Nebulized [Atrovent 0.5 mg INHALATION RT-QID 06/20/21 06/20/21 History Nebulized 0.2 MG/ML] Losartan [Cozaar] 25 mg PO HS 06/20/21 06/20/21 History Melatonin 3 mg PO HS 06/20/21 06/20/21 History Metoprolol Tartrate [Lopressor] 50 mg PO BID 06/20/21 06/20/21 History Montelukast [Singulair] 10 mg PO DAILY 06/20/21 06/20/21 History predniSONE 5 mg PO DIRECTED 06/20/21 06/20/21 History predniSONE See Taper PO DAILY 06/20/21 06/20/21 History Allergies Allergy/AdvReac Type Severity Reaction Status Date / Time codeine AdvReac Nausea & Verified 06/20/21 10:06 Vomiting Physical Exam Vitals: Vital Signs Temp Pulse Resp BP Pulse Ox 06/20/21 14:24 70 18 103/80 96 06/20/21 12:10 78 18 142/116 96 06/20/21 11:00 65 136/70 06/20/21 10:00 75 133/78 99 06/20/21 09:27 66 06/20/21 09:16 70 06/20/21 09:00 121/81 06/20/21 08:16 94 L 06/20/21 08:12 26 H 06/20/21 08:01 97.1 F L 61 24 124/66 90 L Intake and Output 06/19/21 06/20/21 06/20/21 22:59 06:59 14:59 Other: Weight 59.874 kg GENERAL: This is a 80-year-old male in no apparent distress at the time of my examination. He is comfortable in his breathing is unlabored at this point in time Head exam was generally normal. There was no scleral icterus or corneal arcus. Mucous membranes were moist. HEENT: Head is atraumatic, normocephalic. Pupils are equal, round. Sclerae anicteric. Conjunctivae are clear. Mucous membranes of the mouth are moist. Neck is supple. There is no jugular venous distention. No carotid bruit is heard. LUNGS: Scattered course rhonchi, no rales or wheezes. Lung sounds are markedly diminished and the patient diffuse expiratory wheezes throughout the lung hensley bilaterally HEART: Heart sounds are distant, regular rate and rhythm without murmurs, rubs or gallops. S1 and S2 heard. ABDOMEN: Soft, nontender. Bowel sounds are heard. No organomegaly noted. EXTREMITIES: No evidence of peripheral edema and no calf tenderness noted. VASCULAR: Radial and dorsalis pedis pulses palpated, no evidence of clubbing. NEUROLOGIC: Patient is awake, alert and oriented x3. Results - Laboratory Findings CBC and BMP: 06/20/21 08:48 06/20/21 08:48 ABG WBC 12.1 k/uL (3.8-10.6) H 06/20/21 08:48 RBC 4.22 m/uL (4.30-5.90) L 06/20/21 08:48 Hgb 11.4 gm/dL (13.0-17.5) L 06/20/21 08:48 Hct 37.0 % (39.0-53.0) L 06/20/21 08:48 MCV 87.8 fL (80.0-100.0) 06/20/21 08:48 MCH 27.0 pg (25.0-35.0) 06/20/21 08:48 MCHC 30.8 g/dL (31.0-37.0) L 06/20/21 08:48 RDW 14.9 % (11.5-15.5) 06/20/21 08:48 Plt Count 238 k/uL (150-450) 06/20/21 08:48 MPV 7.7 06/20/21 08:48 Neutrophils % 85 % 06/20/21 08:48 Lymphocytes % 6 % 06/20/21 08:48 Monocytes % 8 % 06/20/21 08:48 Eosinophils % 0 % 06/20/21 08:48 Basophils % 0 % 06/20/21 08:48 Neutrophils # 10.2 k/uL (1.3-7.7) H 06/20/21 08:48 Lymphocytes # 0.7 k/uL (1.0-4.8) L 06/20/21 08:48 Monocytes # 1.0 k/uL (0-1.0) 06/20/21 08:48 Eosinophils # 0.0 k/uL (0-0.7) 06/20/21 08:48 Basophils # 0.0 k/uL (0-0.2) 06/20/21 08:48 Hypochromasia Marked 06/20/21 08:48 Poikilocytosis Slight 06/20/21 08:48 PT 13.2 sec (9.0-12.0) H 06/20/21 08:48 INR 1.3 (<1.2) H 06/20/21 08:48 APTT 28.3 sec (22.0-30.0) 06/20/21 08:48 Sodium 135 mmol/L (137-145) L 06/20/21 08:48 Potassium 3.9 mmol/L (3.5-5.1) 06/20/21 08:48 Chloride 96 mmol/L (98-107) L 06/20/21 08:48 Carbon Dioxide 33 mmol/L (22-30) H 06/20/21 08:48 Anion Gap 6 mmol/L 06/20/21 08:48 BUN 33 mg/dL (9-20) H 06/20/21 08:48 Creatinine 0.89 mg/dL (0.66-1.25) 06/20/21 08:48 Est GFR (CKD-EPI)AfAm >90 (>60 ml/min/1.73 sqM) 06/20/21 08:48 Est GFR (CKD-EPI)NonAf 80 (>60 ml/min/1.73 sqM) 06/20/21 08:48 Glucose 98 mg/dL (74-99) 06/20/21 08:48 Plasma Lactic Acid Truman 1.5 mmol/L (0.7-2.0) 06/20/21 08:48 Calcium 9.5 mg/dL (8.4-10.2) 06/20/21 08:48 Magnesium 2.2 mg/dL (1.6-2.3) 06/20/21 08:48 Total Bilirubin 0.6 mg/dL (0.2-1.3) 06/20/21 08:48 AST 29 U/L (17-59) 06/20/21 08:48 ALT 14 U/L (4-49) 06/20/21 08:48 Alkaline Phosphatase 71 U/L (38-126) 06/20/21 08:48 Troponin I 0.025 ng/mL (0.000-0.034) 06/20/21 08:48 NT-Pro-B Natriuret Pep 3360 pg/mL 06/20/21 08:48 Total Protein 6.8 g/dL (6.3-8.2) 06/20/21 08:48 Albumin 3.6 g/dL (3.5-5.0) 06/20/21 08:48 Coronavirus (PCR) Not Detected (Not Detectd) 06/20/21 08:48 PT/INR, D-dimer PT 13.2 sec (9.0-12.0) H 06/20/21 08:48 INR 1.3 (<1.2) H 06/20/21 08:48 Abnormal lab findings: Abnormal Labs 06/20/21 06/20/21 06/20/21 08:48 08:48 08:48 WBC 12.1 H RBC 4.22 L Hgb 11.4 L Hct 37.0 L MCHC 30.8 L Neutrophils # 10.2 H Lymphocytes # 0.7 L PT 13.2 H INR 1.3 H Sodium 135 L Chloride 96 L Carbon Dioxide 33 H BUN 33 H - Diagnostic Findings Chest x-ray: image reviewed Assessment and Plan Plan: 1 acute hypoxic respiratory failure due to a combination of COPD/CHF exacerbation. The patient has been vaccinated for coronary 19. Combivent in testing came back negative. He presented with worsening shortness of breath. He also had a chest x-ray showed COPD with some mild increased pulmonary vascular markings and there is concern for underlying CHF. 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 5 history of DVT 6 history of paroxysmal atrial fibrillation current rhythm is sinus and the patient maintained on long-term and to coagulation with Xarelto 7 hypothyroidism maintained on Synthroid 8 coronary artery disease with previous PCI and stenting 9 carotid artery disease 10 history of smoking Plan We'll start the patient on DuoNeb about treatments around the clock IV Solu Medrol 60 mg every 6 hours IV Lasix 40 mg every 12 hours Sputum Gram stain and culture Check pro calcitonin level Rocephin and Zithromax Echocardiogram to evaluate his LV function Continue antibiotic ventilation with Xarelto regarding approximately atrial fibrillation the patient's current rhythm is sinus. The patient is also on metoprolol and digoxin and Lasix on outpatient basis. Cardiology consultation Smoking cessation nicotine patch Titrate FiO2 to maintain a saturation above 90% We'll continue to follow.
[2021-06-20] MEDS: AZITHROMYCIN 500 MG TAB PO SCH (15:11)
[2021-06-20] MEDS ORDERED: FUROSEMIDE 10 MG/ML 4 ML VIAL IV SCH (16:00)
[2021-06-20] MEDS: IPRATROPIUM-ALBUTEROL 3 ML NEB INHALATION SCH ×2 (16:02→23:22)
[2021-06-20] MEDS: METOPROLOL TARTRATE 50 MG TAB PO SCH (20:54)
[2021-06-20] MEDS: FUROSEMIDE 10 MG/ML 4 ML VIAL IV SCH (20:55)
[2021-06-20] MEDS ORDERED: LOSARTAN 25 MG TAB PO SCH (21:00)
[2021-06-20] MEDS: ALPRAZolam 0.5 MG TAB PO SCH (21:01)
[2021-06-21] MEDS: methylPREDNISolone SOD SUCCI 125 MG/2 ML VIAL IV SCH ×2 (02:19→09:08)
[2021-06-21 04:29] LABS: African American GFR (CKD) 89 (>60 ml/min/1.73 sqM); Anion Gap 7 mmol/L; Blood Urea Nitrogen 34 mg/dL (9-20); Calcium 8.8 mg/dL (8.4-10.2); Carbon Dioxide 33 mmol/L (22-30); Chloride 94 mmol/L (98-107); Glucose 145 mg/dL (74-99); Non-African American GFR(CKD) 77 (>60 ml/min/1.73 sqM); Potassium 3.8 mmol/L (3.5-5.1); Sodium 134 mmol/L (137-145)
[2021-06-21] MEDS: IPRATROPIUM-ALBUTEROL 3 ML NEB INHALATION SCH ×2 (07:35→12:21)
--- NOTE | 2021-06-21 08:40 | XR ---
EXAMINATION TYPE: XR chest 1V portable DATE OF EXAM: 06/21/2021 COMPARISON: Chest x-ray 06/20/2021 HISTORY: Dyspnea TECHNIQUE: Single frontal view of the chest is obtained. FINDINGS: Patient is rotated and there are overlying artifacts. Prominent lung volumes are consisten t with underlying COPD. The heart is enlarged. Prominent pulmonary artery may be indicative of pulmon abran artery hypertension. Interstitium is increased. No evident pneumothorax, pleural effusion, or air space disease. The aorta is dense. Degenerative changes are noted within the shoulders. IMPRESSION: Findings are similar to prior exam. Cardiomegaly, correlate for COPD, pulmonary artery h ypertension. Prominent interstitium. Emphysema.
[2021-06-21] MEDS ORDERED: RIVAROXABAN 15 MG TAB PO SCH (09:00)
[2021-06-21] MEDS: METOPROLOL TARTRATE 50 MG TAB PO SCH (09:07)
[2021-06-21] MEDS: ALPRAZolam 0.5 MG TAB PO SCH (09:07)
[2021-06-21] MEDS: NICOTINE 14MG/24HR PATCH TRANSDERM SCH (09:08)
[2021-06-21] MEDS: NITROGLYCERIN OINT 1 INCH/GM PACKET TOPICAL SCH (09:08)
[2021-06-21] MEDS: AZITHROMYCIN 500 MG TAB PO SCH (09:08)
[2021-06-21] MEDS: FUROSEMIDE 10 MG/ML 4 ML VIAL IV SCH (09:09)
--- NOTE | 2021-06-21 09:21 | ECHOF ---
Referral Reason:LV function MEASUREMENTS -------- HEIGHT: 170.2 cm WEIGHT: 59.9 kg BP: RVIDd: 2.2 cm (< 3.3) IVSd: 1.4 cm (0.6 - 1.1) LVIDd: 4.1 cm (3.9 - 5.3) LVPWd: 1.6 cm (0.6 - 1.1) IVSs: 1.8 cm LVIDs: 2.6 cm LVPWs: 2.2 cm LAESV Index (A-L): 38.07 ml/m Ao Diam: 3.4 cm (2.0 - 3.7) AV Cusp: 2.0 cm (1.5 - 2.6) LA Diam: 3.5 cm (2.7 - 3.8) MV EXCURSION: 11.388 mm (> 18.000) MV EF SLOPE: 81 mm/s (70 - 150) EPSS: 1.2 cm MV E Thang: 1.07 m/s MV DecT: 155 ms MV A Thang: 0.97 m/s MV E/A Ratio: 1.11 AV maxP.06 mmHg AV meanP.79 mmHg AR PHT: 779 ms RAP: 5.00 mmHg RVSP: 60.11 mmHg FINDINGS -------- Sinus rhythm with extra systolic beats. This was a technically adequate study. The left ventricular size is normal. There is moderate concentric left ventricular hypertrophy. O verall left ventricular systolic function is mildly impaired with, an EF between 45 - 50 %. Possibl e dialated coronary sinus Increased LAP Grade 2 Diastolic Dysfunction. Basal lateral LV wall leonid on is hypokinetic. Basal inferior LV wall motion is hypokinetic. The right ventricle is normal in size. LA is moderately dilated 34-39 ml/m2 The right atrial size is normal. There is mild aortic valve sclerosis. There is mild aortic regurgitation. Peak/mean gradient acro ss the Aortic Valve is 20.06mmHg / 11.79mmHg. The mitral valve leaflets are mildly thickened. Moderate mitral regurgitation is present. The tricuspid valve appears structurally normal. Moderate tricuspid regurgitation present. There is moderate to severe pulmonary hypertension. The right ventricular systolic pressure, as measured by Doppler, is 60.11mmHg. Trace/mild (physiologic) pulmonic regurgitation. The aortic root size is normal. The inferior vena cava is mildly dilated. There is no pericardial effusion. CONCLUSIONS -------- 1. Sinus rhythm with extra systolic beats. 2. There is moderate concentric left ventricular hypertrophy. 3. Overall left ventricular systolic function is mildly impaired with, an EF between 45 - 50 %. 4. Possible dialated coronary sinus 5. Increased LAP Grade 2 Diastolic Dysfunction. 6. Basal lateral LV wall motion is hypokinetic. 7. Basal inferior LV wall motion is hypokinetic. 8. LA is moderately dilated 34-39 ml/m2 9. There is mild aortic valve sclerosis. 10. There is mild aortic regurgitation. 11. Peak/mean gradient across the Aortic Valve is 20.06mmHg / 11.79mmHg. 12. The mitral valve leaflets are mildly thickened. 13. Moderate mitral regurgitation is present. 14. Moderate tricuspid regurgitation present. 15. There is moderate to severe pulmonary hypertension. 16. Trace/mild (physiologic) pulmonic regurgitation. 17. The inferior vena cava is mildly dilated. 18. There is no pericardial effusion. LEATHER TANNER: Yaneth Rosario RDCS
[2021-06-21 09:28] VITALS: RESP 22
--- NOTE | 2021-06-21 11:15 | P.PN ---
Subjective This is a pleasant 78-year-old male past medical history significant for paroxysmal atrial fibrillation on long-term anticoagulation, COPD, coronary artery disease status post stent placement LAD with total occlusion of the RCA, ischemic cardiomyopathy, peripheral vascular disease status post left carotid endarterectomy, thoracic aortic aneurysm follows with Dr. Pickard unable to do surgery due to lung status, autoimmune hepatitis. He continues to smoke tobacco. He follows in the office with Dr. Patel. We have been consultation for pulmonary edema. Patient presents to the emergency department with complaints of worsening shortness of breath, symptoms of orthopnea and lower extremity edema. Patient seen in the emergency department, has no lower extremity edema and shortness of breath have improved. He is currently maintained on IV Lasix 40mg BID, losartan 25mg nightly, metoprolol tartrate 50mg BID, Xarelto 15mg daily. I/Os and daily weights not measured. His lower extremity edema have improved. Echocardiogram revealed EF 4550% grade 2 diastolic dysfunction, basal lateral and basal inferior LV wall hypokinetic, amylase mildly dilated, mild aortic regurgitation, moderate mitral regurgitation, moderate tricuspid regurgitation. PHYSICAL EXAMINATION Blood pressure 145/97, heart rate 85, afebrile and saturations 97% on 4 L nasal cannula GENERAL: No acute distress. HEENT: Neck Supple. No JVD. LUNGS: Bilateral mild crackles in the bases, No wheezing noted. No chest wall tenderness is noted on palpation or with deep breathing. HEART:Regular rate and rhythm Systolic ejection mrumur at apex. No rubs or gallops. S1 and S2 heard. ABDOMEN: Soft, nontender. Bowel sounds are heard. EXTREMITIES: trace bilateral lower extremity edema and no calf tenderness noted. VASCULAR: Radial and dorsalis pedis pulses palpated, no evidence of clubbing. NEUROLOGIC: Patient is awake, alert and oriented x3. ASSESSMENT Acute on chronic systolic heart failure COPD exacerbation Chronic nicotine dependence History of Thoracic and abdominal aortic aneurysm Paroxysmal atrial fibrillation on Xarelto Ischemic cardiomyopathy Coronary artery disease status post stent placement to the LAD, chronically occluded RCA Hypertension Dyslipidemia Moderate mitral regurgitation PLAN -Switch to PO Lasix and increase home dose to 40mg BID -Hold Digoxin -Continue Xarelto, Losartan, and metoprolol tartrate -From a cardiology perspective, patient is stable. Pulmonary team following for COPD, appreciate recommendations. Nurse Practitioner note has been reviewed, I agree with a documented findings and plan of care. Patient was seen and examined. Objective - Vital Signs Vital signs: Vital Signs Temp 98.0 F 06/21/21 02:00 Pulse 85 06/21/21 09:25 Resp 22 06/21/21 09:25 BP 145/97 06/21/21 09:25 Pulse Ox 97 06/21/21 09:25 Intake & Output 06/20/21 06/21/21 06/21/21 18:59 06:59 18:59 Weight 59.874 kg - Labs CBC & Chem 7: 06/20/21 08:48 06/21/21 03:30 Labs: Abnormal Lab Results - Last 24 Hours (Table) 06/21/21 Range/Units 03:30 Sodium 134 L (137-145) mmol/L Chloride 94 L (98-107) mmol/L Carbon Dioxide 33 H (22-30) mmol/L BUN 34 H (9-20) mg/dL Glucose 145 H (74-99) mg/dL
--- NOTE | 2021-06-21 11:16 | P.PN ---
Subjective Progress Note Date: 06/21/21 This is a pleasant 78-year-old male past medical history significant for paroxysmal atrial fibrillation on long-term anticoagulation, COPD, coronary artery disease status post stent placement LAD with total occlusion of the RCA, ischemic cardiomyopathy, peripheral vascular disease status post left carotid endarterectomy, thoracic aortic aneurysm follows with Dr. Pickard unable to do surgery due to lung status, autoimmune hepatitis. He continues to smoke tobacco. The patient is known to have advanced COPD. Nevertheless according to the family, he is not oxygen dependent. He has seen us in our office many years back. The patient is on a combination of Dulera 2 puffs twice a day, pro-air as needed, and he has been also maintained on prednisone 5 mg on a daily basis. He does nebulizer with albuterol on as needed basis up to 4 times a day in combination with ipratropium bromide. He is still smoking and he smokes approximately 15 cigarettes on a daily basis. He comes into the hospital because of worsening shortness of breath. His cardiac rhythm is sinus at this point in time. His echoes at 12 normal coagulation profile, normal electrolytes, serum bicarbonate 33, proBNP level is 3360" with 19 testing was negative. Chest x-ray shows hyperinflation in addition to some background COPD along with mild pulmonary vascular congestion. Since his arrival, the patient was given IV Rocephin, IV Lasix 40 mg every 12 hours, he hasn't been started on breathing treatments. He has not been started on his stomach steroids. on today's evaluation of 06/21/2021 the patient remains in the emergency. He is feeling better. Less short of breath. Overnight, he got diuresed and his chest x-ray shows some improvement in the volume status compared to yesterday. Limited cough. No significant sputum production. No chest tightness. No wheezing. He remains on IV Lasix. He is also on bronchodilators and he is also on systemic steroids. Blood work from today shows BUN of 34 with a creatinine of 0.9 and normal electrolytes. Echocardiogram showed evidence of mild CHF with an ejection fraction of 45-50% and moderate mitral regurgitation, moderate tricuspid regurgitation, moderate to severe pulmonary hypertension with a PA pressure of around 60. He also had a pro-calcitonin level that came back low at 0.03. Objective - Vital Signs Vital signs: Vital Signs Temp 98.0 F 06/21/21 02:00 Pulse 85 06/21/21 09:25 Resp 22 06/21/21 09:25 BP 145/97 06/21/21 09:25 Pulse Ox 97 06/21/21 09:25 Intake & Output 06/20/21 06/21/21 06/21/21 18:59 06:59 18:59 Weight 59.874 kg - Exam GENERAL: This is a 80-year-old male in no apparent distress at the time of my examination. He is comfortable in his breathing is unlabored at this point in time, Currently is on 2 L at a pulse ox of 97%. Head exam was generally normal. There was no scleral icterus or corneal arcus. Mucous membranes were moist. HEENT: Head is atraumatic, normocephalic. Pupils are equal, round. Sclerae anicteric. Conjunctivae are clear. Mucous membranes of the mouth are moist. Neck is supple. There is no jugular venous distention. No carotid bruit is heard. LUNGS: Scattered course rhonchi, no rales or wheezes. Lung sounds are markedly diminished and the patient diffuse expiratory wheezes throughout the lung hensley bilaterally HEART: Heart sounds are distant, regular rate and rhythm without murmurs, rubs or gallops. S1 and S2 heard. ABDOMEN: Soft, nontender. Bowel sounds are heard. No organomegaly noted. EXTREMITIES: No evidence of peripheral edema and no calf tenderness noted. VASCULAR: Radial and dorsalis pedis pulses palpated, no evidence of clubbing. NEUROLOGIC: Patient is awake, alert and oriented x3. - Labs CBC & Chem 7: 06/20/21 08:48 06/21/21 03:30 Labs: Abnormal Lab Results - Last 24 Hours (Table) 06/21/21 Range/Units 03:30 Sodium 134 L (137-145) mmol/L Chloride 94 L (98-107) mmol/L Carbon Dioxide 33 H (22-30) mmol/L BUN 34 H (9-20) mg/dL Glucose 145 H (74-99) mg/dL Assessment and Plan Plan: 1 acute hypoxic respiratory failure due to a combination of COPD/CHF exacerbation. The patient has been vaccinated for COVID 19. Combivent in testing came back negative. He presented with worsening shortness of breath. He also had a chest x-ray showed COPD with some mild increased pulmonary vascular markings and there is concern for underlying CHF. ProBNP level is slightly elevated,. On today's evaluation of 06/21/2021, the patient is improved. He is less short of breath compared to yesterday. He is adequately diurese P follow-up chest x-ray shows improvement. Pro-calcitonin level is not elevated. Echocardiogram was noted and he has an ejection fraction of 45%. 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 5 history of DVT 6 history of paroxysmal atrial fibrillation current rhythm is sinus and the patient maintained on long-term and to coagulation with Xarelto 7 hypothyroidism maintained on Synthroid 8 coronary artery disease with previous PCI and stenting 9 carotid artery disease 10 history of smoking Plan We'll start the patient on DuoNeb about treatments around the clock Stopped IV Solu-Medrol and put the patient prednisone burst taper I switched this patient to oral Lasix 40 mg by mouth twice a day Check pro calcitonin level, level was low complete a 4-day course of Zithromax 250 mg by mouth daily Continue a Xarelto regarding approximately atrial fibrillation the patient's current rhythm is sinus. The patient is also on metoprolol and digoxin and Lasix on outpatient basis. Cardiology consultation completed Smoking cessation nicotine patch Titrate FiO2 to maintain a saturation above 90% patient is stable and from the pulmonary standpoint, the patient can be discharged home on a prednisone burst taper and a course of Zithromax to be completed over the next 4 days to be followed up on outpatient basis.RAL LASIX ORAL ANTIBIOTICS OR STEROIDS.
[2021-06-21] MEDS ORDERED: ALPRAZolam 0.5 MG TAB PO PRN (11:48)
[2021-06-21 12:23] VITALS: BP 118/87; TEMP 98.7
[2021-06-21 12:25] VITALS: PULSE 68
[2021-06-21] MEDS ORDERED: FUROSEMIDE 40 MG TAB PO SCH (16:00)
[2021-06-22] MEDS ORDERED: AZITHROMYCIN 250 MG TAB PO SCH (09:00)
[2021-06-22] MEDS ORDERED: predniSONE 20 MG TAB PO SCH (09:00)
== END 2021-06-21 12:40 | disposition home or self-care (01) ==
LOC: EC 08:01 → INTOOBSV 11:32 → 4SSUR 11:32 → UNDODISIN 06-21 12:40
PROVIDERS: ADMIT Family Medicine; ATTEND Family Medicine
DX: I11.0 Hypertensive heart disease with heart failure (principal); I50.23 Acute on chronic systolic (congestive) heart failure; J44.1 Chronic obstructive pulmonary disease with (acute) exacerbation; I48.0 Paroxysmal atrial fibrillation; K75.4 Autoimmune hepatitis; I25.10 Atherosclerotic heart disease of native coronary artery without angina pectoris; I44.0 Atrioventricular block, first degree; I25.5 Ischemic cardiomyopathy; I65.21 Occlusion and stenosis of right carotid artery; I08.3 Combined rheumatic disorders of mitral, aortic and tricuspid valves; I27.20 Pulmonary hypertension, unspecified; E03.9 Hypothyroidism, unspecified; E78.5 Hyperlipidemia, unspecified; I25.82 Chronic total occlusion of coronary artery; I71.2 Thoracic aortic aneurysm, without rupture; I71.4 Abdominal aortic aneurysm, without rupture; J96.01 Acute respiratory failure with hypoxia; I73.9 Peripheral vascular disease, unspecified; Z71.6 Tobacco abuse counseling; F17.210 Nicotine dependence, cigarettes, uncomplicated; Z20.822 Contact with and (suspected) exposure to COVID-19; Z79.01 Long term (current) use of anticoagulants; Z79.82 Long term (current) use of aspirin; Z79.890 Hormone replacement therapy; Z79.51 Long term (current) use of inhaled steroids; Z79.52 Long term (current) use of systemic steroids; Z79.899 Other long term (current) drug therapy; Z88.5 Allergy status to narcotic agent; Z86.79 Personal history of other diseases of the circulatory system; Z98.41 Cataract extraction status, right eye; Z98.42 Cataract extraction status, left eye; Z92.3 Personal history of irradiation; Z85.21 Personal history of malignant neoplasm of larynx; Z86.010 Personal history of colon polyps; Z95.5 Presence of coronary angioplasty implant and graft; Z95.828 Presence of other vascular implants and grafts; Z90.49 Acquired absence of other specified parts of digestive tract; Z87.19 Personal history of other diseases of the digestive system; Z86.718 Personal history of other venous thrombosis and embolism; Z98.890 Other specified postprocedural states; Z83.2 Family history of diseases of the blood and blood-forming organs and certain disorders involving the immune mechanism; Z80.3 Family history of malignant neoplasm of breast; Z83.79 Family history of other diseases of the digestive system
CPT/HCPCS: 96376 ×2; 96365; 96375; 99285; 36415; 94640 ×3; 93005; 93306; 83880; 80053; 80048; 83605; 83735; 84484; 85025; 85610; 85730; 87040; 84145; 87635; 71045; 71046; G0378 ×2; S4990 ×2; J1940 ×2; J2930 ×2; J0696 ×2; 96374

== ENCOUNTER 2021-07-09 14:11 | Inpatient (IN) | payer MEDICARE ==
--- NOTE | 2021-07-09 15:34 | ED ---
SOB HPI - General Chief Complaint: Shortness of Breath Stated Complaint: SOB Time Seen by Provider: 07/09/21 15:05 Source: patient Mode of arrival: ambulatory Limitations: no limitations - History of Present Illness Initial Comments: 80-year-old male with past medical history of COPD not on home O2, A. fib, congestive heart failure presents to the emergency department with reported shortness of breath. States that he has been short of breath for the past 4 days. Admits to productive cough with white sputum and palpitations. He was out of his Dulera for 1 day however had worsening shortness of breath prior to this. He was hospitalized earlier this month and placed on a prednisone taper. states that he finished the taper and is only on his 5 mg per day dose of prednisone. Denies chest pain. No fevers or chills. He continues to smoke. He takes his of Lasix, Toprol and Eliquis as directed without any missed doses. feels that he is worse than what he was when he was hospitalist earlier this month - Related Data Home Medications Medication Instructions Recorded Confirmed ALPRAZolam [Xanax] 0.5 mg PO HS 08/26/15 07/09/21 Mometasone/Formoterol [Dulera 200 2 puff INHALATION RT-BID 08/26/15 07/09/21 Mcg-5 Mcg Inhaler] Albuterol Nebulized [Ventolin 2.5 mg INHALATION RT-QID 04/27/19 07/09/21 Nebulized] Levothyroxine Sodium [Synthroid] 150 mcg PO DAILY 04/27/19 07/09/21 Rivaroxaban [Xarelto] 15 mg PO DAILY 04/27/19 07/09/21 Albuterol Sulfate [Proair 1 puff INHALATION RT-QID PRN 06/20/21 07/09/21 Respiclick] Losartan [Cozaar] 25 mg PO HS 06/20/21 07/09/21 Metoprolol Tartrate [Lopressor] 50 mg PO BID 06/20/21 07/09/21 Atorvastatin [Lipitor] 20 mg PO HS 07/09/21 07/09/21 Furosemide [Lasix] 20 mg PO HS 07/09/21 07/09/21 Furosemide [Lasix] 40 mg PO DAILY 07/09/21 07/09/21 Sertraline HCl [Zoloft] 50 mg PO HS 07/09/21 07/09/21 predniSONE 5 mg PO DAILY 07/09/21 07/09/21 Allergies Allergy/AdvReac Type Severity Reaction Status Date / Time codeine AdvReac Nausea & Verified 07/09/21 16:31 Vomiting Review of Systems ROS Statement: Those systems with pertinent positive or pertinent negative responses have been documented in the HPI. ROS Other: All systems not noted in ROS Statement are negative. Past Medical History Past Medical History: Atrial Fibrillation, COPD, Deep Vein Thrombosis (DVT), Myocardial Infarction (HI), Thyroid Disorder Additional Past Medical History / Comment(s): HX ABDOMINAL AORTIC ANEURYSM,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 cardiac cath with stenting Past Anesthesia/Blood Transfusion Reactions: No Reported Reaction Past Psychological History: No Psychological Hx Reported Smoking Status: Current every day smoker Past Alcohol Use History: None Reported Past Drug Use History: None Reported - Past Family History Mother Family Medical History: Cancer Additional Family Medical History / Comment(s): breast CA Father Additional Family Medical History / Comment(s): COLOSTOMY Daughter(s) Family Medical History: Deep Vein Thrombosis (DVT) Additional Family Medical History / Comment(s): HX FACTOR FIVE LEIDEN General Exam Limitations: no limitations Course Vital Signs 07/09/21 07/09/21 07/09/21 15:05 15:12 15:14 Temperature 97.3 F L Pulse Rate 69 140 H Respiratory 22 34 H 32 H Rate Blood Pressure 143/121 O2 Sat by Pulse 87 L 94 L Oximetry 07/09/21 07/09/21 07/09/21 16:00 16:21 16:30 Temperature Pulse Rate 141 H 142 H 140 H Respiratory 28 H Rate Blood Pressure 74/45 81/68 O2 Sat by Pulse Oximetry 07/09/21 07/09/21 07/09/21 16:43 16:48 17:03 Temperature Pulse Rate 141 H 142 H Respiratory 28 H 34 H Rate Blood Pressure 78/57 113/78 O2 Sat by Pulse Oximetry Medical Decision Making - Medical Decision Making Upon arrival patient is placed in a trauma 2. He is hooked to continuous pulse ox and cardiac monitoring. Patient is in A. fib with RVR. IV is established and the patient is given 5 mg of Lopressor. Laboratory studies were conducted. Demonstrates acute kidney injury with a creatinine of 1.4. Lactic acid 2.9. Troponin 0.068. BNP 3900. Chest x-ray demonstrates an infiltrate in the lingula in the left upper lobe and left lower lobe slightly worse than last exam. Chest x-ray does not demonstrate volume overload and therefore he is placed on 130 mL/h for severe sepsis. Patient is given a DuoNeb breathing treatment and 125 mg of Solu-Medrol. He does maintain saturations of 96% on 6 L. I recommended admission for which the patient did agree to. Called and spoke with Dr. Rojas who agreed to admit the patient. - Lab Data Result diagrams: 07/09/21 15:38 07/09/21 15:38 Lab Results 07/09/21 07/09/21 07/09/21 Range/Units 15:38 15:38 15:38 WBC 10.5 (3.8-10.6) k/uL RBC 4.51 (4.30-5.90) m/uL Hgb 11.6 L (13.0-17.5) gm/dL Hct 38.2 L (39.0-53.0) % MCV 84.6 (80.0-100.0) fL MCH 25.8 (25.0-35.0) pg MCHC 30.5 L (31.0-37.0) g/dL RDW 16.7 H (11.5-15.5) % Plt Count 140 L (150-450) k/uL MPV 7.3 Neutrophils % 90 % Lymphocytes % 4 % Monocytes % 4 % Eosinophils % 0 % Basophils % 0 % Neutrophils # 9.4 H (1.3-7.7) k/uL Lymphocytes # 0.4 L (1.0-4.8) k/uL Monocytes # 0.5 (0-1.0) k/uL Eosinophils # 0.0 (0-0.7) k/uL Basophils # 0.0 (0-0.2) k/uL Hypochromasia Moderate Anisocytosis Slight PT 16.7 H (9.0-12.0) sec INR 1.7 H (<1.2) APTT 33.2 H (22.0-30.0) sec Sodium 136 L (137-145) mmol/L Potassium 3.7 (3.5-5.1) mmol/L Chloride 98 (98-107) mmol/L Carbon Dioxide 26 (22-30) mmol/L Anion Gap 12 mmol/L BUN 44 H (9-20) mg/dL Creatinine 1.47 H (0.66-1.25) mg/dL Est GFR (CKD-EPI)AfAm 51 (>60 ml/min/1.73 sqM) Est GFR (CKD-EPI)NonAf 44 (>60 ml/min/1.73 sqM) Glucose 139 H (74-99) mg/dL Plasma Lactic Acid Truman (0.7-2.0) mmol/L Calcium 9.5 (8.4-10.2) mg/dL Magnesium 2.1 (1.6-2.3) mg/dL Total Bilirubin 0.8 (0.2-1.3) mg/dL AST 28 (17-59) U/L ALT 16 (4-49) U/L Alkaline Phosphatase 67 (38-126) U/L Troponin I (0.000-0.034) ng/mL NT-Pro-B Natriuret Pep pg/mL Total Protein 6.6 (6.3-8.2) g/dL Albumin 3.7 (3.5-5.0) g/dL 07/09/21 07/09/21 07/09/21 Range/Units 15:38 15:38 15:38 WBC (3.8-10.6) k/uL RBC (4.30-5.90) m/uL Hgb (13.0-17.5) gm/dL Hct (39.0-53.0) % MCV (80.0-100.0) fL MCH (25.0-35.0) pg MCHC (31.0-37.0) g/dL RDW (11.5-15.5) % Plt Count (150-450) k/uL MPV Neutrophils % % Lymphocytes % % Monocytes % % Eosinophils % % Basophils % % Neutrophils # (1.3-7.7) k/uL Lymphocytes # (1.0-4.8) k/uL Monocytes # (0-1.0) k/uL Eosinophils # (0-0.7) k/uL Basophils # (0-0.2) k/uL Hypochromasia Anisocytosis PT (9.0-12.0) sec INR (<1.2) APTT (22.0-30.0) sec Sodium (137-145) mmol/L Potassium (3.5-5.1) mmol/L Chloride (98-107) mmol/L Carbon Dioxide (22-30) mmol/L Anion Gap mmol/L BUN (9-20) mg/dL Creatinine (0.66-1.25) mg/dL Est GFR (CKD-EPI)AfAm (>60 ml/min/1.73 sqM) Est GFR (CKD-EPI)NonAf (>60 ml/min/1.73 sqM) Glucose (74-99) mg/dL Plasma Lactic Acid Truman 2.9 H* (0.7-2.0) mmol/L Calcium (8.4-10.2) mg/dL Magnesium (1.6-2.3) mg/dL Total Bilirubin (0.2-1.3) mg/dL AST (17-59) U/L ALT (4-49) U/L Alkaline Phosphatase (38-126) U/L Troponin I 0.068 H* (0.000-0.034) ng/mL NT-Pro-B Natriuret Pep 3900 pg/mL Total Protein (6.3-8.2) g/dL Albumin (3.5-5.0) g/dL - EKG Data EKG Comments: EKG demonstrates A. fib with a rapid ventricular response of 134. QRS 86. QTC of 498. No acute ST segment elevations or depressions concerning for ischemic changes Disposition Clinical Impression: Atrial fibrillation with RVR, Elevated troponin, HCAP (healthcare-associated pneumonia), [place] (acute kidney injury) Disposition: ADMITTED IP TO THIS HOSP Condition: Serious Is patient prescribed a controlled substance at d/c from ED?: No Decision to Admit Reason: Admit from EC Decision Date: 07/09/21 Decision Time: 17:13
[2021-07-09 15:48] LABS: Anisocytosis Slight; Basophils % (A) 0 %; Eosinophils % (A) 0 %; HCT 38.2 % (39.0-53.0); HGB 11.6 gm/dL (13.0-17.5); Hypochromasia Moderate; Lymphocytes # (A) 0.4 k/uL (1.0-4.8); Lymphocytes % (A) 4 %; MCH 25.8 pg (25.0-35.0); MCHC 30.5 g/dL (31.0-37.0); MCV 84.6 fL (80.0-100.0); Mean Platelet Volume 7.3; Monocytes # (A) 0.5 k/uL (0-1.0); Monocytes % (A) 4 %; Neutrophils # (A) 9.4 k/uL (1.3-7.7); Neutrophils % (A) 90 %; Platelet Count 140 k/uL (150-450); RBC 4.51 m/uL (4.30-5.90); RDW 16.7 % (11.5-15.5); WBC 10.5 k/uL (3.8-10.6)
--- NOTE | 2021-07-09 15:51 | XR ---
EXAMINATION TYPE: XR chest 2V DATE OF EXAM: 07/09/2021 COMPARISON: 06/21/2021 HISTORY: Difficulty breathing TECHNIQUE: 3 view FINDINGS: There is no heart failure nor confluent pneumonic infiltrate. There is some coarse intersti tial density left lower lobe. There are chest leads. Heart is borderline enlarged. Bony thorax is int act. IMPRESSION: There is some mild infiltrate in the lingula left upper lobe and left lower lobe that is slightly worse than last exam. No heart failure.
[2021-07-09 15:54] LABS: INR 1.7 (<1.2); Partial Thromboplastin Time 33.2 sec (22.0-30.0); Prothrombin Time 16.7 sec (9.0-12.0)
[2021-07-09 16:04] LABS: Albumin 3.7 g/dL (3.5-5.0); Calcium 9.5 mg/dL (8.4-10.2); Magnesium 2.1 mg/dL (1.6-2.3); Potassium 3.7 mmol/L (3.5-5.1); Total Bilirubin 0.8 mg/dL (0.2-1.3); Total Protein 6.6 g/dL (6.3-8.2)
[2021-07-09] MEDS ORDERED: SODIUM CHLORIDE 0.9% 1,000 ML IV SCH ×2 (16:15→17:15)
[2021-07-09] MEDS: IPRATROPIUM-ALBUTEROL 3 ML NEB INHALATION STA ×2 (16:20→16:25)
[2021-07-09] MEDS ORDERED: METOPROLOL TARTRATE 5 MG/5 ML VIAL IVP STA (16:44)
[2021-07-09] MEDS ORDERED: LEVOFLOXACIN 750MG-D5W PMX 750 MG in DEXTROSE/WATER 1 150ML.BAG IVPB STA (16:45)
[2021-07-09] MEDS ORDERED: VANCOMYCIN IV PER PHARMACY 1 EACH MISC MISCELLANE PRN (16:45)
[2021-07-09] MEDS ORDERED: VANCOMYCIN 1,000 MG in SODIUM CHLORIDE 0.9% 250 ML IVPB STA (16:55)
[2021-07-09] MEDS ORDERED: NALOXONE 0.4 MG/ML 1 ML VIAL IV PRN (17:14)
[2021-07-09] MEDS ORDERED: IBUPROFEN 400 MG TAB PO PRN (17:14)
[2021-07-09] MEDS ORDERED: ACETAMINOPHEN TAB 325 MG TAB PO PRN (17:14)
[2021-07-09] MEDS ORDERED: methylPREDNISolone SOD SUCCI 125 MG/2 ML VIAL IV STA (17:14)
[2021-07-09] MEDS: ATORVASTATIN 20 MG TAB PO SCH (20:31)
[2021-07-09] MEDS: ALPRAZolam 0.5 MG TAB PO SCH (20:31)
[2021-07-09] MEDS: METOPROLOL TARTRATE 50 MG TAB PO SCH (20:32)
[2021-07-09] MEDS: SERTRALINE 50 MG TAB PO SCH (20:35)
[2021-07-09] MEDS ORDERED: LOSARTAN 25 MG TAB PO SCH (21:00)
[2021-07-09] MEDS: SYMBICORT 160-4.5 MCG INHALER INHALATION SCH (21:06)
[2021-07-09] MEDS: ALBUTEROL NEBULIZED 2.5 MG/3 ML INHALATION SCH (21:06)
[2021-07-09] MEDS: NICOTINE 21MG/24HR PATCH TRANSDERM SCH (22:58)
[2021-07-09] MEDS ORDERED: SODIUM CHLORIDE 0.9% 500 ML 250 ML IV ONE (23:39)
[2021-07-09] MEDS: SODIUM CHLORIDE 0.9% 1,000 ML IV SCH (23:53)
[2021-07-10] MEDS ORDERED: METOPROLOL TARTRATE 5 MG/5 ML VIAL IVP STA (01:35)
[2021-07-10] MEDS: ALBUTEROL NEBULIZED 2.5 MG/3 ML INHALATION SCH (07:21)
[2021-07-10] MEDS: SYMBICORT 160-4.5 MCG INHALER INHALATION SCH ×2 (07:21→21:10)
[2021-07-10] MEDS ORDERED: IPRATROPIUM-ALBUTEROL 3 ML NEB INHALATION PRN (07:47)
[2021-07-10 08:08] LABS: Calcium 8.6 mg/dL (8.4-10.2); Potassium 3.7 mmol/L (3.5-5.1)
[2021-07-10 08:10] LABS: Anisocytosis Slight; Basophils % (A) 0 %; Eosinophils % (A) 0 %; Hypochromasia Moderate; Lymphocytes # (A) 0.2 k/uL (1.0-4.8); Lymphocytes % (A) 3 %; MCH 26.6 pg (25.0-35.0); MCV 85.8 fL (80.0-100.0); Mean Platelet Volume 8.6; Monocytes # (A) 0.2 k/uL (0-1.0); Monocytes % (A) 3 %; Neutrophils # (A) 6.9 k/uL (1.3-7.7); Neutrophils % (A) 93 %; Platelet Count 143 k/uL (150-450); RBC 3.73 m/uL (4.30-5.90); RDW 16.6 % (11.5-15.5); WBC 7.4 k/uL (3.8-10.6)
[2021-07-10 08:13] LABS: HGB 9.9 gm/dL (13.0-17.5)
[2021-07-10] MEDS: METOPROLOL TARTRATE 50 MG TAB PO SCH (08:58)
[2021-07-10] MEDS: NICOTINE 21MG/24HR PATCH TRANSDERM SCH (08:59)
[2021-07-10] MEDS: RIVAROXABAN 15 MG TAB PO SCH (08:59)
[2021-07-10] MEDS: FAMOTIDINE 20 MG/2 ML VIAL IV SCH ×2 (08:59→21:59)
[2021-07-10] MEDS ORDERED: CEFEPIME 2 GM in SODIUM CHLORIDE 0.9% 100 ML IVPB ONE (09:00)
--- NOTE | 2021-07-10 09:11 | P.HPIM ---
History of Present Illness This is a pleasant 80 years old male with past medical history of Atrial Fibrillation, COPD, Deep Vein Thrombosis on Xarelto, , ABDOMINAL AORTIC ANEURYSM,VOCAL CORD [place]-2008 RADIATION,AUTOIMMUNE HEPATITIS, dysphagia, rt carotid artery blocked Patient was recently in the hospital earlier this month for COPD/CHF. He sees Dr. Meyers. His electrotype molder is Dr. Lagos and manager logistic Dr. Patel At baseline and he uses a walker but walks mainly in the house. He is not on home oxygen He presents because of dyspnea for the last 3-4 days associated with cough and phlegm which is clear but today got worse. No chest pain. No abdominal pain or diarrhea. No urinary complaints Patient smokes half to three quarters of a pack each day. He was counseled and he agrees, he has nicotine patch. He denies alcohol or illicit drugs. On admission his heart rate was jumping up to 140. Patient is also short of breath and tachypneic but a febrile. He was hypoxic 87% on room air, also patient was hypotensive at times down to 80/61, currently his blood pressure is 160/68. And his oxygen saturation is 95% on 5 L oxygen CBC is unremarkable except for mild anemia and thrombocytopenia. WBC although it is within the reference range at 10.5 however it's more than baseline of 5-6 INR is 1.7. Sodium 136, potassium normal, creatinine 1.47 baseline is 0.9. Elevated lactic acid 2.9 came back to normal at 1.5 Troponin elevated at 0.06, 0.103 and 0.143 liver enzymes and bilirubin are unremarkable. ProBNP is 3900 which is at baseline EKG showing A. fib with RVR at 134 and QTC 498, no significant ST-T changes. Chest x-ray: There is some mild infiltrate in the lingula left upper lobe and left lower lobe that is slightly worse than last exam. No heart failure. Covid test is negative In the emergency room patient received IV vancomycin and Levaquin 1, Solu- Medrol 125 mg and several doses of metoprolol Also patient received IV fluids as he looks dehydrated Review of Systems Review of systems CONSTITUTIONAL: No fever, no malaise, no fatigue. HEENT: No recent visual problems or hearing problems. Denied any sore throat. CARDIOVASCULAR: No orthopnea, PND, no palpitations, no syncope. PULMONARY: No chest wall tenderness, no hemoptysis. GASTROINTESTINAL: No diarrhea, no nausea, no vomiting, no abdominal pain. Normoactive bowel sounds. NEUROLOGICAL: No headaches, no weakness, no numbness. HEMATOLOGICAL: Denies any bleeding or petechiae. GENITOURINARY: Denies any burning micturition, frequency, or urgency. MUSCULOSKELETAL/RHEUMATOLOGICAL: Denies any joint pain, swelling, or any muscle pain. ENDOCRINE: Denies any polyuria or polydipsia. Past Medical History Past Medical History: Atrial Fibrillation, COPD, Deep Vein Thrombosis (DVT), Myocardial Infarction (MD), Thyroid Disorder Additional Past Medical History / Comment(s): HX ABDOMINAL AORTIC ANEURYSM,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 cardiac cath with stenting Past Anesthesia/Blood Transfusion Reactions: No Reported Reaction Past Psychological History: No Psychological Hx Reported Smoking Status: Current every day smoker Past Alcohol Use History: None Reported Past Drug Use History: None Reported - Past Family History Mother Family Medical History: Cancer Additional Family Medical History / Comment(s): breast CA Father Additional Family Medical History / Comment(s): COLOSTOMY Daughter(s) Family Medical History: Deep Vein Thrombosis (DVT) Additional Family Medical History / Comment(s): HX FACTOR FIVE LEIDEN Medications and Allergies Home Medications Medication Instructions Recorded Confirmed Type ALPRAZolam [Xanax] 0.5 mg PO HS 08/26/15 07/09/21 History Mometasone/Formoterol [Dulera 200 2 puff INHALATION RT-BID 08/26/15 07/09/21 History Mcg-5 Mcg Inhaler] Albuterol Nebulized [Ventolin 2.5 mg INHALATION RT-QID 04/27/19 07/09/21 History Nebulized] Levothyroxine Sodium [Synthroid] 150 mcg PO DAILY 04/27/19 07/09/21 History Rivaroxaban [Xarelto] 15 mg PO DAILY 04/27/19 07/09/21 History Albuterol Sulfate [Proair 1 puff INHALATION RT-QID PRN 06/20/21 07/09/21 History Respiclick] Losartan [Cozaar] 25 mg PO HS 06/20/21 07/09/21 History Metoprolol Tartrate [Lopressor] 50 mg PO BID 06/20/21 07/09/21 History Atorvastatin [Lipitor] 20 mg PO HS 07/09/21 07/09/21 History Furosemide [Lasix] 20 mg PO HS 07/09/21 07/09/21 History Furosemide [Lasix] 40 mg PO DAILY 07/09/21 07/09/21 History Sertraline HCl [Zoloft] 50 mg PO HS 07/09/21 07/09/21 History predniSONE 5 mg PO DAILY 07/09/21 07/09/21 History Allergies Allergy/AdvReac Type Severity Reaction Status Date / Time codeine AdvReac Nausea & Verified 07/09/21 16:31 Vomiting Physical Exam Vitals: Vital Signs Temp Pulse Resp BP Pulse Ox 07/10/21 07:24 78 07/10/21 04:00 129 H 22 106/68 95 07/10/21 01:38 68 20 95/76 07/09/21 23:30 130 H 101/61 07/09/21 23:02 97.5 F L 113 H 22 83/66 98 07/09/21 22:00 18 80/61 94 L 07/09/21 20:15 66 20 105/72 95 07/09/21 19:00 66 20 101/52 07/09/21 17:50 68 20 97/60 95 07/09/21 17:03 142 H 34 H 07/09/21 16:48 141 H 28 H 113/78 07/09/21 16:43 78/57 07/09/21 16:30 140 H 81/68 07/09/21 16:21 142 H 07/09/21 16:00 141 H 28 H 74/45 07/09/21 15:14 140 H 32 H 143/121 94 L 07/09/21 15:12 34 H 07/09/21 15:05 97.3 F L 69 22 87 L Intake and Output 07/09/21 07/10/21 07/10/21 22:59 06:59 14:59 Other: Weight 50.802 kg GENERAL: The patient is alert and oriented x3, not in any acute distress. Well developed, well nourished. HEENT: Pupils are round and equally reacting to light. EOMI. No scleral icterus. No conjunctival pallor. Normocephalic, atraumatic. No pharyngeal erythema. No thyromegaly. CARDIOVASCULAR: S1 and S2 present. No murmurs, rubs, or gallops. -PULMONARY: Chest is clear to auscultation, mild bilateral wheezing. no crackles. ABDOMEN: Soft, nontender, nondistended, normoactive bowel sounds. No palpable organomegaly. MUSCULOSKELETAL: No joint swelling or deformity. EXTREMITIES: No cyanosis, clubbing, or pedal edema. NEUROLOGICAL: Gross neurological examination did not reveal any focal deficits. SKIN: No rashes. No petechiae Results CBC & Chem 7: 07/10/21 07:20 07/10/21 07:20 Labs: Abnormal Lab Results - Last 24 Hours (Table) 07/09/21 07/09/21 07/09/21 Range/Units 15:38 15:38 15:38 Hgb 11.6 L (13.0-17.5) gm/dL Hct 38.2 L (39.0-53.0) % MCHC 30.5 L (31.0-37.0) g/dL RDW 16.7 H (11.5-15.5) % Plt Count 140 L (150-450) k/uL Neutrophils # 9.4 H (1.3-7.7) k/uL Lymphocytes # 0.4 L (1.0-4.8) k/uL PT 16.7 H (9.0-12.0) sec INR 1.7 H (<1.2) APTT 33.2 H (22.0-30.0) sec Sodium 136 L (137-145) mmol/L BUN 44 H (9-20) mg/dL Creatinine 1.47 H (0.66-1.25) mg/dL Glucose 139 H (74-99) mg/dL Plasma Lactic Acid Truman (0.7-2.0) mmol/L Troponin I (0.000-0.034) ng/mL 07/09/21 07/09/21 07/09/21 Range/Units 15:38 15:38 17:46 Hgb (13.0-17.5) gm/dL Hct (39.0-53.0) % MCHC (31.0-37.0) g/dL RDW (11.5-15.5) % Plt Count (150-450) k/uL Neutrophils # (1.3-7.7) k/uL Lymphocytes # (1.0-4.8) k/uL PT (9.0-12.0) sec INR (<1.2) APTT (22.0-30.0) sec Sodium (137-145) mmol/L BUN (9-20) mg/dL Creatinine (0.66-1.25) mg/dL Glucose (74-99) mg/dL Plasma Lactic Acid Truman 2.9 H* (0.7-2.0) mmol/L Troponin I 0.068 H* 0.103 H* (0.000-0.034) ng/mL 07/09/21 07/09/21 Range/Units 18:33 21:50 Hgb (13.0-17.5) gm/dL Hct (39.0-53.0) % MCHC (31.0-37.0) g/dL RDW (11.5-15.5) % Plt Count (150-450) k/uL Neutrophils # (1.3-7.7) k/uL Lymphocytes # (1.0-4.8) k/uL PT (9.0-12.0) sec INR (<1.2) APTT (22.0-30.0) sec Sodium (137-145) mmol/L BUN (9-20) mg/dL Creatinine (0.66-1.25) mg/dL Glucose (74-99) mg/dL Plasma Lactic Acid Truman 2.4 H* (0.7-2.0) mmol/L Troponin I 0.143 H* (0.000-0.034) ng/mL Assessment and Plan Assessment: Worsening left lower lobe pneumonia Acute hypoxic respiratory failure COPD, with mild acute exacerbation A. fib and RVR, already on Xarelto Acute kidney injury, improving Nicotine dependence Moderate calorie-10 malnutrition History of the venous thrombosis History of abdominal aortic aneurysm History of vocal cord cancer in 2007 History of autoimmune hepatitis History of dysphagia History of right carotid artery blocked Plan: This is a pleasant 80 years old male who presents with A. fib, a KCI, possible worsening pneumonia We will start the patient empirically on of cefepime, and already started on van comycin emergency room, while we will check for pro-touch calcitonin and C- reactive protein. Continue with gentle hydration Continue with oxygen, breathing treatment and prevention of steroids pulmonary and cardiology consult Nutrition consult Labs and medication were reviewed.. Continue same treatment. Continue with symptomatic treatment. Resume home medication. Monitor lytes and vitals. DVT and GI prophylaxis. Further recommendations depends on the clinical course of the patient DVT prophylaxis: Xarelto GI Prophylaxis: Pepcid PT/OT: Pending Prognosis is guarded
[2021-07-10] MEDS ORDERED: methylPREDNISolone SOD SUCCI 40 MG/ML 1 ML VIAL IV SCH (09:15)
--- NOTE | 2021-07-10 10:58 | P.CRDCN ---
History of Present Illness Consult date: 07/10/21 Consult reason: atrial fibrillation Chief complaint: Acute hypoxic respiratory failure History of present illness: This is Jorge Medrano NP dictating a consult on this patient on behalf of Dr. Tran. The patient was interviewed and examined. HPI: [Patient's a pleasant 80-year-old male who initially presented to the hospital with acute hypoxic respiratory failure. Patient has a past medical history includes COPD, atrial fibrillation, congestive heart failure, DVT, DC, thyroid disorder. Patient reports he's been short of breath for approximately 4 days. Has a productive cough with white sputum along with heart palpitations. Patient reports that he felt like he couldn't breathe, however states he's a little better today. Initial evaluation of the patient found his troponins to be mildly elevated, and patient was A. fib with RVR on his EKG. EKG also demonstrates significant ST depression in the lateral leads. ] ROS: [No fever, chills, or rigors] [no cough, phlegm, or expectoration] [no nausea, vomiting, or diarrhea] [no hematuria, dysuria] [no musculoskelatal complaints] [no strokes or seizures] [no skin lesions] EXAMINATION: GENERAL: Well-appearing, well-nourished and in no acute distress. NECK: Supple without JVD or thyromegaly. LUNGS: Breath sounds clear to auscultation bilaterally. Respiration equal and unlabored. No wheezes, rales or rhonchi. HEART: Regular rate and irregular rhythm without murmurs, rubs or gallops. S1 and S2 heard. EXTREMITIES: Normal range of motion, no edema. No clubbing or cyanosis. Peripheral pulses intact and strong. REVIEW OF LABS, ECG & MEDICAL DATA: LABS: White count 7.4, hemoglobin 9.9, platelets 143, sodium 138, potassium 3.7, BUN 42, creatinine 1.22, serial troponins-0.103, 0.143, 0.108 EKG: A. fib with RVR; telemetry shows A. fib with frequent PVCs IMAGING: Chest x-ray dated 07/09/2021-there is some mild infiltrate in the lingula left upper lobe and left lower lobe that is slightly worse than last exam. No heart failure. VITALS: Temp 98.5, pulse 82, respirations 20, blood pressure 105/72, O2 saturation 99% on 5 L nasal cannula IMPRESSION/PLAN: 1. Atrial fibrillation with rapid ventricular response-we'll stop the patient's losartan. Increase metoprolol to 75 mg twice a day. Also start the patient back on his home dose of Lasix, 40 mg by mouth daily, and 20 mg at bedtime. 2. Congestive heart failure-stop IV fluids. Increase metoprolol. Stop losartan. Restart home dose of Lasix. The patient has been seen and evaluated. Plan of care has been reviewed and agreed upon by Dr. Tran. Thank you for the consult and allowing us to participate in the care of this patient. 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 cardiac cath with stenting Past Anesthesia/Blood Transfusion Reactions: No Reported Reaction Past Psychological History: No Psychological Hx Reported Smoking Status: Current every day smoker Past Alcohol Use History: None Reported Past Drug Use History: None Reported - Past Family History Mother Family Medical History: Cancer Additional Family Medical History / Comment(s): breast CA Father Additional Family Medical History / Comment(s): COLOSTOMY Daughter(s) Family Medical History: Deep Vein Thrombosis (DVT) Additional Family Medical History / Comment(s): HX FACTOR FIVE LEIDEN Medications and Allergies Home Medications Medication Instructions Recorded Confirmed Type ALPRAZolam [Xanax] 0.5 mg PO HS 08/26/15 07/09/21 History Mometasone/Formoterol [Dulera 200 2 puff INHALATION RT-BID 08/26/15 07/09/21 History Mcg-5 Mcg Inhaler] Albuterol Nebulized [Ventolin 2.5 mg INHALATION RT-QID 04/27/19 07/09/21 History Nebulized] Levothyroxine Sodium [Synthroid] 150 mcg PO DAILY 04/27/19 07/09/21 History Rivaroxaban [Xarelto] 15 mg PO DAILY 04/27/19 07/09/21 History Albuterol Sulfate [Proair 1 puff INHALATION RT-QID PRN 06/20/21 07/09/21 History Respiclick] Losartan [Cozaar] 25 mg PO HS 06/20/21 07/09/21 History Metoprolol Tartrate [Lopressor] 50 mg PO BID 06/20/21 07/09/21 History Atorvastatin [Lipitor] 20 mg PO HS 07/09/21 07/09/21 History Furosemide [Lasix] 20 mg PO HS 07/09/21 07/09/21 History Furosemide [Lasix] 40 mg PO DAILY 07/09/21 07/09/21 History Sertraline HCl [Zoloft] 50 mg PO HS 07/09/21 07/09/21 History predniSONE 5 mg PO DAILY 07/09/21 07/09/21 History Allergies Allergy/AdvReac Type Severity Reaction Status Date / Time codeine AdvReac Nausea & Verified 07/09/21 16:31 Vomiting Physical Exam Vitals: Vital Signs Temp Pulse Pulse Resp BP BP Pulse Ox 07/10/21 08:00 98.5 F 87 20 105/72 99 07/10/21 07:34 82 07/10/21 07:24 78 07/10/21 04:00 129 H 22 106/68 95 07/10/21 01:38 68 20 95/76 07/09/21 23:30 130 H 101/61 07/09/21 23:02 97.5 F L 113 H 22 83/66 98 07/09/21 22:00 18 80/61 94 L 07/09/21 20:15 66 20 105/72 95 07/09/21 19:00 66 20 101/52 07/09/21 17:50 68 20 97/60 95 07/09/21 17:03 142 H 34 H 07/09/21 16:48 141 H 28 H 113/78 07/09/21 16:43 78/57 07/09/21 16:30 140 H 81/68 07/09/21 16:21 142 H 07/09/21 16:00 141 H 28 H 74/45 07/09/21 15:14 140 H 32 H 143/121 94 L 07/09/21 15:12 34 H 07/09/21 15:05 97.3 F L 69 22 87 L Intake and Output 07/09/21 07/10/21 07/10/21 22:59 06:59 14:59 Other: Weight 50.802 kg Results 07/10/21 07:20 07/10/21 07:20 Cardiac Enzymes 07/09/21 07/09/21 07/09/21 Range/Units 15:38 15:38 17:46 AST 28 (17-59) U/L Troponin I 0.068 H* 0.103 H* (0.000-0.034) ng/mL 07/09/21 07/10/21 Range/Units 21:50 07:20 AST (17-59) U/L Troponin I 0.143 H* 0.108 H* (0.000-0.034) ng/mL Coagulation 07/09/21 Range/Units 15:38 PT 16.7 H (9.0-12.0) sec APTT 33.2 H (22.0-30.0) sec CBC 07/09/21 07/10/21 Range/Units 15:38 07:20 WBC 10.5 7.4 (3.8-10.6) k/uL RBC 4.51 3.73 L (4.30-5.90) m/uL Hgb 11.6 L 9.9 L D (13.0-17.5) gm/dL Hct 38.2 L 32.0 L (39.0-53.0) % Plt Count 140 L 143 L (150-450) k/uL Comprehensive Metabolic Panel 07/09/21 07/10/21 Range/Units 15:38 07:20 Sodium 136 L 138 (137-145) mmol/L Potassium 3.7 3.7 (3.5-5.1) mmol/L Chloride 98 105 (98-107) mmol/L Carbon Dioxide 26 26 (22-30) mmol/L BUN 44 H 42 H (9-20) mg/dL Creatinine 1.47 H 1.22 (0.66-1.25) mg/dL Glucose 139 H 147 H (74-99) mg/dL Calcium 9.5 8.6 (8.4-10.2) mg/dL AST 28 (17-59) U/L ALT 16 (4-49) U/L Alkaline Phosphatase 67 (38-126) U/L Total Protein 6.6 (6.3-8.2) g/dL Albumin 3.7 (3.5-5.0) g/dL Current Medications Generic Name Dose Route Start Last Admin Trade Name Freq PRN Reason Stop Dose Admin Acetaminophen 650 mg 07/09/21 17:14 07/10/21 09:00 Acetaminophen Tab 325 Mg Tab PO 650 mg Q6HR PRN Administration Mild Pain or Fever > 100.5 Albuterol Sulfate 2.5 mg 07/09/21 20:00 07/10/21 07:21 Albuterol Nebulized 2.5 Mg/3 Ml INHALATION 2.5 mg RT-QID OMI Administration Albuterol/Ipratropium 3 ml 07/10/21 07:47 Ipratropium-Albuterol 3 Ml Neb INHALATION RT-QID PRN Shortness Of Breath Or Wheezing Alprazolam 0.5 mg 07/09/21 21:00 07/09/21 20:31 Alprazolam 0.5 Mg Tab PO 0.5 mg HS OMI Administration Atorvastatin Calcium 20 mg 07/09/21 21:00 07/09/21 20:31 Atorvastatin 20 Mg Tab PO 20 mg HS OMI Administration Budesonide/Formoterol Fumarate 2 puff 07/09/21 20:00 07/10/21 07:21 Symbicort 160-4.5 Mcg Inhaler INHALATION 2 puff RT-BID OMI Administration Famotidine 10 mg 07/10/21 09:00 07/10/21 08:59 Famotidine 20 Mg/2 Ml Vial IV 10 mg Q12HR OMI Administration Vancomycin HCl 750 mg/ Sodium 250 mls @ 125 mls/hr 07/10/21 12:00 Chloride IVPB Q24H OMI Sodium Chloride 1,000 mls @ 120 mls/hr 07/09/21 23:45 07/09/21 23:53 Saline 0.9% IV 120 mls/hr .Q8H20M OMI Administration Cefepime HCl 2 gm/ Sodium 100 mls @ 25 mls/hr 07/10/21 21:00 Chloride IVPB Q12HR OMI Ibuprofen 400 mg 07/09/21 17:14 Ibuprofen 400 Mg Tab PO Q6HR PRN Mild Pain or Fever > 100.5 Levothyroxine Sodium 150 mcg 07/10/21 06:30 Levothyroxine 75 [place] 0630 OMI Losartan Potassium 25 mg 07/09/21 21:00 07/09/21 20:32 Losartan 25 Mg Tab PO Not Given HS OMI Methylprednisolone Sodium Succinate 40 mg 07/10/21 09:15 Methylprednisolone Sod Succi 40 Mg/Ml 1 Ml Vial IV Q12HR OMI Metoprolol Tartrate 50 mg 07/09/21 21:00 07/10/21 08:58 Metoprolol Tartrate 50 Mg Tab PO 50 mg BID OMI Administration Naloxone HCl 0.2 mg 07/09/21 17:14 Naloxone 0.4 Mg/Ml 1 Ml Vial IV Q2M PRN Opioid Reversal Nicotine 1 patch 07/09/21 22:45 07/10/21 08:59 Nicotine 21mg/24hr Patch TRANSDERM 1 patch DAILY OMI Administration Rivaroxaban 15 mg 07/10/21 09:00 07/10/21 08:59 Rivaroxaban 15 Mg Tab PO 15 mg DAILY OMI Administration Protocol Sertraline HCl 50 mg 07/09/21 21:00 07/09/21 20:35 Sertraline 50 Mg Tab PO 50 mg HS OMI Administration Intake and Output 07/09/21 07/10/21 07/10/21 22:59 06:59 14:59 Other: Weight 50.802 kg 07/10/21 07:20 07/10/21 07:20
[2021-07-10] MEDS: IPRATROPIUM-ALBUTEROL 3 ML NEB INHALATION SCH ×3 (11:01→21:11)
[2021-07-10] MEDS: LEVOTHYROXINE 75 MCG TAB PO SCH (11:27)
[2021-07-10] MEDS: SODIUM CHLORIDE 0.9% 1,000 ML IV SCH (11:27)
[2021-07-10] MEDS ORDERED: VANCOMYCIN 750 MG in SODIUM CHLORIDE 0.9% 250 ML IVPB SCH (12:00)
--- NOTE | 2021-07-10 12:34 | P.CNPUL ---
History of Present Illness Consult date: 07/10/21 Requesting physician: Shashank E Sheet Reason for consult: dyspnea, cough, COPD, hypoxemia, pneumonia Chief complaint: Shortness of breath, COPD exacerbation. History of present illness: Pulmonary consult dated 07/10/2021. 80-year-old male, with a past medical history of COPD, and an FEV1 percent that's 59, atrial fibrillation, and CHF, who presents to the emergency department on July 09, with shortness of breath. Patient has been having shortness of breath for about 4 days prior to admission. The patient is not a particularly good historian. The patient does admit to productive cough with white phlegm, and apparently states that he ran out of one of his breathing inhalers. Currently, the patient is resting comfortably in the emergency room, room 26. He tested negative for coronavirus. The patient is chronically on prednisone 5 mg a day. Currently, he's on 2 L nasal cannula. Is not receiving any IV fluids. The patient has history of ongoing tobacco use. White count 7.4 , hemoglobin 9.9, hematocrit 32.0, platelet count 143,000. Lactic acid was initially 2.4 and repeat was 1.5. Troponins were 0.103, 0.143, 0.108. Sodium 138, potassium 3.7, chlorides 105, CO2 26, anion gap 7, BUN 42, creatinine 1.22. Calcitonin level was 0.03. The radiologist read his x-ray showing mild infiltrate in the lingula, and left upper lobe, but on my review, the chest x- ray looks relatively normal save for changes of COPD. Review of Systems REVIEW OF SYSTEMS: CONSTITUTIONAL: [Negative.] NEUROLOGIC: [ Negative.] HEENT: [ Negative.] CARDIAC: [Negative.] PULMONARY: Shortness of breath, cough, white phlegm production. GI: [Negative.] : [Negative.] RHEUMATOLOGIC: [ Negative.] IMMUNOLOGIC: [ Negative.] ENDOCRINE: [Negative. ] DERMATOLOGIC: [Negative.] Past Medical History Past Medical History: Atrial Fibrillation, COPD, Deep Vein Thrombosis (DVT), Myocardial Infarction ([place]), Thyroid Disorder Additional Past Medical History / Comment(s): HX ABDOMINAL AORTIC ANEURYSM,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 cardiac cath with stenting Past Anesthesia/Blood Transfusion Reactions: No Reported Reaction Past Psychological History: No Psychological Hx Reported Smoking Status: Current every day smoker Past Alcohol Use History: None Reported Past Drug Use History: None Reported - Past Family History Mother Family Medical History: Cancer Additional Family Medical History / Comment(s): breast CA Father Additional Family Medical History / Comment(s): COLOSTOMY Daughter(s) Family Medical History: Deep Vein Thrombosis (DVT) Additional Family Medical History / Comment(s): HX FACTOR FIVE LEIDEN Medications and Allergies Home Medications Medication Instructions Recorded Confirmed Type ALPRAZolam [Xanax] 0.5 mg PO HS 08/26/15 07/09/21 History Mometasone/Formoterol [Dulera 200 2 puff INHALATION RT-BID 08/26/15 07/09/21 History Mcg-5 Mcg Inhaler] Albuterol Nebulized [Ventolin 2.5 mg INHALATION RT-QID 04/27/19 07/09/21 History Nebulized] Levothyroxine Sodium [Synthroid] 150 mcg PO DAILY 04/27/19 07/09/21 History Rivaroxaban [Xarelto] 15 mg PO DAILY 04/27/19 07/09/21 History Albuterol Sulfate [Proair 1 puff INHALATION RT-QID PRN 06/20/21 07/09/21 History Respiclick] Losartan [Cozaar] 25 mg PO HS 06/20/21 07/09/21 History Metoprolol Tartrate [Lopressor] 50 mg PO BID 06/20/21 07/09/21 History Atorvastatin [Lipitor] 20 mg PO HS 07/09/21 07/09/21 History Furosemide [Lasix] 20 mg PO HS 07/09/21 07/09/21 History Furosemide [Lasix] 40 mg PO DAILY 07/09/21 07/09/21 History Sertraline HCl [Zoloft] 50 mg PO HS 07/09/21 07/09/21 History predniSONE 5 mg PO DAILY 07/09/21 07/09/21 History Allergies Allergy/AdvReac Type Severity Reaction Status Date / Time codeine AdvReac Nausea & Verified 07/09/21 16:31 Vomiting Physical Exam Osteopathic Statement: *. No significant issues noted on an osteopathic structural exam other than those noted in the History and Physical/Consult. Vitals: Vital Signs Temp Pulse Pulse Resp BP BP Pulse Ox 07/10/21 11:12 80 07/10/21 11:03 66 07/10/21 08:00 98.5 F 87 20 105/72 99 07/10/21 07:34 82 07/10/21 07:24 78 07/10/21 04:00 129 H 22 106/68 95 07/10/21 01:38 68 20 95/76 07/09/21 23:30 130 H 101/61 07/09/21 23:02 97.5 F L 113 H 22 83/66 98 07/09/21 22:00 18 80/61 94 L 07/09/21 20:15 66 20 105/72 95 07/09/21 19:00 66 20 101/52 07/09/21 17:50 68 20 97/60 95 07/09/21 17:03 142 H 34 H 07/09/21 16:48 141 H 28 H 113/78 07/09/21 16:43 78/57 07/09/21 16:30 140 H 81/68 07/09/21 16:21 142 H 07/09/21 16:00 141 H 28 H 74/45 07/09/21 15:14 140 H 32 H 143/121 94 L 07/09/21 15:12 34 H 07/09/21 15:05 97.3 F L 69 22 87 L Intake and Output 07/09/21 07/10/21 07/10/21 22:59 06:59 14:59 Other: Weight 50.802 kg No acute distress, oriented 3. Currently on 2 L nasal cannula. Saturations are adequate. HEENT examination is grossly unremarkable. Neck supple. Full range of motion. No adenopathy thyromegaly or neck vein distention. Cardiovascular examination reveals an irregular rhythm and rate. S1-S2 normal. No S3 or S4. No discernible murmur noted. Heart sounds are distant. Heart rate 80 bpm. Lungs reveal bilateral inspiratory and expiratory rhonchi and wheezes. Breath sounds equal bilaterally. No crackles. Breath sounds are diminished throughout. Abdomen soft bowel sounds are heard. No masses or tenderness. Extremities are intact. No cyanosis clubbing or edema. Skin is without rash or lesion. Neurologic examination is brief but nonfocal. Results - Laboratory Findings CBC and BMP: 07/10/21 07:20 07/10/21 07:20 PT/INR, D-dimer PT 16.7 sec (9.0-12.0) H 07/09/21 15:38 INR 1.7 (<1.2) H 07/09/21 15:38 Abnormal lab findings: Abnormal Labs 07/09/21 07/09/21 07/09/21 15:38 15:38 15:38 RBC Hgb 11.6 L Hct 38.2 L MCHC 30.5 L RDW 16.7 H Plt Count 140 L Neutrophils # 9.4 H Lymphocytes # 0.4 L PT 16.7 H INR 1.7 H APTT 33.2 H Sodium 136 L BUN 44 H Creatinine 1.47 H Glucose 139 H Plasma Lactic Acid Truman Troponin I 07/09/21 07/09/21 07/09/21 15:38 15:38 17:46 RBC Hgb Hct MCHC RDW Plt Count Neutrophils # Lymphocytes # PT INR APTT Sodium BUN Creatinine Glucose Plasma Lactic Acid Truman 2.9 H* Troponin I 0.068 H* 0.103 H* 07/09/21 07/09/21 07/10/21 18:33 21:50 07:20 RBC 3.73 L Hgb 9.9 L D Hct 32.0 L MCHC RDW 16.6 H Plt Count 143 L Neutrophils # Lymphocytes # 0.2 L PT INR APTT Sodium BUN Creatinine Glucose Plasma Lactic Acid Truman 2.4 H* Troponin I 0.143 H* 07/10/21 07/10/21 07:20 07:20 RBC Hgb Hct MCHC RDW Plt Count Neutrophils # Lymphocytes # PT INR APTT Sodium BUN 42 H Creatinine Glucose 147 H Plasma Lactic Acid Truman Troponin I 0.108 H* - Diagnostic Findings Chest x-ray: image reviewed Assessment and Plan Assessment: Acute exacerbation of COPD, in my opinion, not complicated by pneumonia. Pro- calcitonin level is normal. History of chronic atrial fibrillation. History of deep venous thrombosis. History of CAD, status post cardiac catheterization with stenting, and history of myocardial infarction. History of hypothyroidism. History of hyperlipidemia. History of vocal cord cancer, 2008, status post radiation. Autoimmune hepatitis. Status post abdominal aortic aneurysm repair with stenting. Plan: Plan dated 07/10/2021. The patient is seen in the emergency room, room 26. Currently, he's on 2 L nasal cannula. I'm going to going to DC the antibiotics. He's currently on vancomycin and cefepime. The patient will be placed on DuoNeb's 4 times a day when necessary, Symbicort 160/4.5, 2 puffs twice a day, and Solu-Medrol, 40 mg every 6. He is on oxygen therapy. He looks very stable. We will continue to follow make recommendations where appropriate. Time with Patient: Greater than 30
[2021-07-10] MEDS: methylPREDNISolone SOD SUCCI 40 MG/ML 1 ML VIAL IV SCH ×2 (12:45→21:24)
[2021-07-10] MEDS: FUROSEMIDE 40 MG TAB PO SCH (12:49)
[2021-07-10] MEDS ORDERED: FUROSEMIDE 20 MG TAB PO SCH (17:00)
[2021-07-10] MEDS ORDERED: CEFEPIME 2 GM in SODIUM CHLORIDE 0.9% 100 ML IVPB SCH (21:00)
[2021-07-10] MEDS: ALPRAZolam 0.5 MG TAB PO SCH (21:58)
[2021-07-10] MEDS: SERTRALINE 50 MG TAB PO SCH (21:59)
[2021-07-10] MEDS: ATORVASTATIN 20 MG TAB PO SCH (21:59)
[2021-07-10] MEDS: METOPROLOL TARTRATE 25 MG TAB PO SCH (21:59)
[2021-07-11] MEDS: methylPREDNISolone SOD SUCCI 40 MG/ML 1 ML VIAL IV SCH ×2 (00:39→05:44)
[2021-07-11] MEDS: LEVOTHYROXINE 75 MCG TAB PO SCH (05:45)
[2021-07-11 06:41] LABS: Anisocytosis Slight; Basophils % (A) 0 %; Eosinophils % (A) 0 %; HCT 30.9 % (39.0-53.0); HGB 9.8 gm/dL (13.0-17.5); Hypochromasia Moderate; Lymphocytes # (A) 0.3 k/uL (1.0-4.8); Lymphocytes % (A) 3 %; MCH 26.9 pg (25.0-35.0); MCHC 31.7 g/dL (31.0-37.0); MCV 84.9 fL (80.0-100.0); Mean Platelet Volume 8.4; Monocytes # (A) 0.3 k/uL (0-1.0); Monocytes % (A) 4 %; Neutrophils # (A) 8.4 k/uL (1.3-7.7); Neutrophils % (A) 93 %; Platelet Count 129 k/uL (150-450); RBC 3.64 m/uL (4.30-5.90); RDW 16.6 % (11.5-15.5)
[2021-07-11 07:17] LABS: C Reactive Protein 4.3 mg/dL (<1.0); Calcium 8.7 mg/dL (8.4-10.2); Magnesium 2.2 mg/dL (1.6-2.3); Potassium 3.7 mmol/L (3.5-5.1)
[2021-07-11] MEDS: RIVAROXABAN 15 MG TAB PO SCH (09:01)
[2021-07-11] MEDS: NICOTINE 21MG/24HR PATCH TRANSDERM SCH (09:01)
[2021-07-11] MEDS: FUROSEMIDE 40 MG TAB PO SCH (09:01)
[2021-07-11] MEDS: METOPROLOL TARTRATE 25 MG TAB PO SCH (09:01)
[2021-07-11] MEDS: SYMBICORT 160-4.5 MCG INHALER INHALATION SCH (09:02)
[2021-07-11] MEDS: FAMOTIDINE 20 MG/2 ML VIAL IV SCH (09:02)
[2021-07-11] MEDS: IPRATROPIUM-ALBUTEROL 3 ML NEB INHALATION SCH ×3 (09:02→15:24)
--- NOTE | 2021-07-11 10:31 | P.PN ---
Subjective Progress Note Date: 07/11/21 80-year-old male, with a past medical history of COPD, and an FEV1 percent that's 59, atrial fibrillation, and CHF, who presents to the emergency department on July 09, with shortness of breath. Patient has been having shortness of breath for about 4 days prior to admission. The patient is not a p articularly good historian. The patient does admit to productive cough with white phlegm, and apparently states that he ran out of one of his breathing inhalers. Currently, the patient is resting comfortably in the emergency room, room 26. He tested negative for coronavirus. The patient is chronically on prednisone 5 mg a day. Currently, he's on 2 L nasal cannula. Is not receiving any IV fluids. The patient has history of ongoing tobacco use. White count 7.4, hemoglobin 9.9, hematocrit 32.0, platelet count 143,000. Lactic acid was initially 2.4 and repeat was 1.5. Troponins were 0.103, 0.143, 0.108. Sodium 138, potassium 3.7, chlorides 105, CO2 26, anion gap 7, BUN 42, creatinine 1.22. Calcitonin level was 0.03. The radiologist read his x-ray showing mild infiltrate in the lingula, and left upper lobe, but on my review, the chest x- ray looks relatively normal save for changes of COPD. On today's evaluation of 07/11/2021, the patient is being seen for follow-up. The patient was Hospital as for an acute COPD exacerbation. Feeling better. Less shortness of breath and less bronchospastic and wheezy compared to yesterday. The pro-calcitonin was low and the patient was taken off antibiotics. Note that the chest x-ray showed a questionable mid left lung infiltrates. The patient remains on bronchodilators. The patient remained on steroids. The patient's history of any chest pain. The patient was also seen by cardiology. Started on beta deandra regarding the atrial fibrillation. The patient is on long-term anticoagulation with Xarelto. The patient also had an elevated proBNP level at the time of admission and the patient was given diuretics. He was yesterday seen by the pulmonary group and he was taken off antibiotics as the patient pro-calcitonin level remains low. He has a swallow evaluation to be completed today. Objective - Vital Signs Vital signs: Vital Signs Temp 97.6 F 07/11/21 04:00 Pulse 56 L 07/11/21 09:13 Resp 20 07/11/21 09:13 BP 107/73 07/11/21 04:00 Pulse Ox 98 07/11/21 09:03 Intake & Output 07/10/21 07/11/21 07/11/21 18:59 06:59 18:59 Intake Total 10 Output Total 400 Balance -400 10 Weight 50.802 kg 52 kg Intake: IV 10 Invasive Line 1 10 Output: Urine 400 Other: Voiding Method Urinal # Voids 1 - Exam No acute distress, oriented 3. Currently on 2 L nasal cannula. Saturations are adequate. HEENT examination is grossly unremarkable. Neck supple. Full range of motion. No adenopathy thyromegaly or neck vein distention. Cardiovascular examination reveals an irregular rhythm and rate. S1-S2 normal. No S3 or S4. No discernible murmur noted. Heart sounds are distant. Heart rate 80 bpm. Lungs reveal bilateral inspiratory and expiratory rhonchi and wheezes. Breath sounds equal bilaterally. No crackles. Breath sounds are diminished throughout. Abdomen soft bowel sounds are heard. No masses or tenderness. Extremities are intact. No cyanosis clubbing or edema. Skin is without rash or lesion. Neurologic examination is brief but nonfocal. - Labs CBC & Chem 7: 07/11/21 05:54 07/11/21 05:54 Labs: Abnormal Lab Results - Last 24 Hours (Table) 07/11/21 07/11/21 Range/Units 05:54 05:54 RBC 3.64 L (4.30-5.90) m/uL Hgb 9.8 L (13.0-17.5) gm/dL Hct 30.9 L (39.0-53.0) % RDW 16.6 H (11.5-15.5) % Plt Count 129 L (150-450) k/uL Neutrophils # 8.4 H (1.3-7.7) k/uL Lymphocytes # 0.3 L (1.0-4.8) k/uL BUN 40 H (9-20) mg/dL Glucose 137 H (74-99) mg/dL C-Reactive Protein 4.3 H (<1.0) mg/dL Microbiology - Last 24 Hours (Table) 07/09/21 17:03 Blood Culture - Preliminary Blood No Growth after 24 hours 07/09/21 17:03 Blood Culture - Preliminary Blood No Growth after 24 hours Assessment and Plan Plan: 1 Acute exacerbation of COPD, Pro-calcitonin level is normal, no clear indication for pneumonia 2 History of chronic atrial fibrillation. 3 History of deep venous thrombosis. 4 History of CAD, status post cardiac catheterization with stenting, and history of myocardial infarction. 5 History of hypothyroidism. 6 History of hyperlipidemia. 7 History of vocal cord cancer, 2007, status post radiation. 8 Autoimmune hepatitis. 9 Status post abdominal aortic aneurysm repair with stenting. Plan: Continue DuoNeb's 4 times a day when necessary, Symbicort 160/4.5, 2 puffs twice a day, and Solu-Medrol, 40 mg every 6. He is on oxygen therapy. He looks very stable. Continue metoprolol and beta blockers for rate control. Continue long- term anticoagulation with Xarelto. We will continue to follow make recommendations where appropriate. Stopped IV Solu-Medrol and put the patient a prednisone burst taper. Swallow evaluation today Evaluation for home O2 the time of discharge, he does not have home O2 at this point in time We'll continue to follow
--- NOTE | 2021-07-11 10:57 | P.PN ---
Subjective Progress Note Date: 07/11/21 HISTORY OF PRESENT ILLNESS: This is an 80-year-old male who follows in the office with Dr. Patel. Patient is admitted to the hospital secondary to acute hypoxic respiratory failure, pneumonia, and CHF. Patient examined this morning at the bedside. Patient denies chest pain or pressure. He reports mild shortness of breath. He remains on IV steroids. He is currently receiving oral Lasix. Telemetry reveals sinus mechanism. Echocardiogram completed revealing ejection fraction 45-50%. PHYSICAL EXAM: VITAL SIGNS: Reviewed. GENERAL: Well-developed in no acute distress. NECK: Supple. No JVD or thyromegaly LUNGS: Respirations even and unlabored. Lungs diminished with bilateral rhonchi. HEART: Regular rate and rhythm. S1 and S2 heard. EXTREMITIES: Normal range of motion. No clubbing or cyanosis. Peripheral pulses intact. Trace bilateral lower extremity edema ASSESSMENT: Shortness of breath Pneumonia Acute exacerbation of chronic diastolic congestive heart failure, ejection fraction 45-50% Paroxysmal atrial fibrillation with RVR, on anticoagulation with Xarelto Coronary artery disease History of DVT Hyperlipidemia COPD PLAN: Continue telemetry monitoring Continue anticoagulation with Xarelto Continue additional cardiac medications Further recommendations pending patient course Nurse practitioner note has been reviewed by physician. Signing provider agrees with the documented findings, assessment, and plan of care. Objective - Vital Signs Vital signs: Vital Signs Temp 97.6 F 07/11/21 04:00 Pulse 56 L 07/11/21 09:13 Resp 20 07/11/21 09:13 BP 107/73 07/11/21 04:00 Pulse Ox 98 07/11/21 09:03 Intake & Output 07/10/21 07/11/21 07/11/21 18:59 06:59 18:59 Intake Total 10 Output Total 400 Balance -400 10 Weight 50.802 kg 52 kg Intake: IV 10 Invasive Line 1 10 Output: Urine 400 Other: Voiding Method Urinal # Voids 1 - Labs CBC & Chem 7: 07/11/21 05:54 07/11/21 05:54 Labs: Abnormal Lab Results - Last 24 Hours (Table) 07/11/21 07/11/21 Range/Units 05:54 05:54 RBC 3.64 L (4.30-5.90) m/uL Hgb 9.8 L (13.0-17.5) gm/dL Hct 30.9 L (39.0-53.0) % RDW 16.6 H (11.5-15.5) % Plt Count 129 L (150-450) k/uL Neutrophils # 8.4 H (1.3-7.7) k/uL Lymphocytes # 0.3 L (1.0-4.8) k/uL BUN 40 H (9-20) mg/dL Glucose 137 H (74-99) mg/dL C-Reactive Protein 4.3 H (<1.0) mg/dL Microbiology - Last 24 Hours (Table) 07/09/21 17:03 Blood Culture - Preliminary Blood No Growth after 24 hours 07/09/21 17:03 Blood Culture - Preliminary Blood No Growth after 24 hours
[2021-07-11 11:12] VITALS: TEMP 97.7
--- NOTE | 2021-07-11 11:55 | CDI ---
Documentation Clarification Form Date: 07/11/2021 11:21:12 AM From: Sanjana Bustillo RN CCDS Admit Date: 07/09/2021 05:14:00 PM Patient Name: Oneil Arthur Visit Number: [id number] Discharge Date: ATTENTION: The Clinical Documentation Specialists (CDI) and [facility] Coding Staff appreciate your assistance in clarifying documentation. Please respond to the clarification below the line at the bottom and electronically sign. The CDI & [facility] Coding staff will review the response and follow-up if needed. Please note: Queries are made part of the Legal Health Record. If you have any questions, please contact the author of this message via ITS. Dr. Shawn Tran Your patient has the documented diagnosis of unspecified CHF 07/10, Cardiology consult. Additional information regarding the type and acuity of CHF is requested. History/Risk Factors: 80-year-old male presents to the ED with shortness of breath, cough and phlegm. Recent admission of CHF and COPD exacerbation earlier this month. Medical History Smoker, Atrial Fib, COPD Clinical Indicators: VS/Pulse OX: 06/2715:05 HR 69, Temp 97.3, RR 22, SpO2 87%; 07/09 15:14 HR 140, RR 32, B/P 143/121, SpO2 94% 3L nasal cannula BNP: 07/09 3900 Echocardiogram Results:06/20/2021 EF between 45-50%, possible Increased LAP Grade 2 Diastolic Dysfunction, Basal lateral LV wall motion is hypokinetic, Basal inferior LV wall motion is hypokinetic, LA is moderately dilated 34- 39ml/m2, mild aortic valve sclerosis, mild aortic regurgitation, Moderate mitral regurgitation is present, moderate tricuspid regurgitation present. Moderate to severe pulmonary HTN. Chest X Ray: 07/09 Mild infiltrate in the lingula left upper lobe and left lower lobe. Treatment: 07/10 Lasix 20mg PO Daily @ 17:00 to current; 07/10 Lasix 40mg PO Daily to current. 07/09 Lopressor 5mg IVP x 1. 07/09 Lopressor 50mg PO BID d/c 07/10. 07/10 Lopressor 75mg PO BID to current. In your professional opinion, can you please clarify the acuity and type of CHF if known? [ ] Chronic Systolic Heart Failure (reduced EF) [ ] Chronic Systolic & Diastolic Heart Failure [ ] Other, please specify [ ] Unable to determine (Template Last Revised: September 2020) Answered on Cardiology progress note 07/11 Acute on chronic diastolic congestive heart failure ef 45-50% NÉSTOR AkhtarD
[2021-07-11 12:10] VITALS: RESP 18
[2021-07-11 13:45] VITALS: BP 98/54
--- NOTE | 2021-07-11 14:00 | FL ---
Modified barium swallow. HISTORY: Dysphagia. Modified barium swallow was performed with the department of speech pathology. The patient was prese nted with various consistencies of barium. There is owen aspiration with thin liquid barium. Penetration noted with various other consistencies . Full report is to follow from the department of speech pathology. Impression: Aspiration
[2021-07-11 15:14] VITALS: BMI 17.4
[2021-07-11 15:36] VITALS: PULSE 64
[2021-07-12] MEDS ORDERED: predniSONE 20 MG TAB PO SCH (09:00)
--- NOTE | 2021-07-13 14:27 | P.DS ---
Providers Date of admission: 07/09/21 17:14 Expected date of discharge: 07/11/21 Attending physician: Kaveh Meyers MD Consults: 07/09/21 17:15 Consult Physician Urgent Consulting Provider: [facility] Consult Reason/Comments: afib with rvr Do you want consulting provider notified?: Yes 07/09/21 23:39 Consult Physician Urgent Consulting Provider: Jah Lagos Consult Reason/Comments: HCAP Do you want consulting provider notified?: Yes, Notify in am Primary care physician: Kaveh Meyers MD Hospital Course: Final Diagnoses Acute COPD exacerbation History of vocal cord cancer, 2007, status post radiation, chronic moderate to severe dysphagia, worsening per MBS. Declining PEG tube. CAD, history of [place], cardiac stenting Hypothyroidism Hyperlipidemia History of DVT Autoimmune hepatitis Status post abdominal aortic aneurysm repair with stenting Ongoing nicotine dependence Hospital course: This is an 80-year-old gentleman admitted with acute COPD ex acerbation and multiple other medical issues. Normal Pro-calcitonin level. Maintained on nebulized bronchodilators, steroids,LABA with significant clinical improvement. Completed MBS reporting chronic moderate to severe dysphagia 5 +years secondary to history of laryngeal cancer. States he is unable to tolerate thickening agents. Declined PEG tube. Cleared by pulmonary for discharge. Patient will be discharged home in stable condition with guarded prognosis. The impression and plan of care has been dictated as directed. : I performed a history and examination of this patient, discussed the same with the dictator. I agree with the dictator's note ,documented as a scribe. Any additional findings or plans will be noted. Patient Condition at Discharge: Stable Plan - Discharge Summary Discharge Rx Participant: No New Discharge Prescriptions: New Nicotine 21Mg/24Hr Patch [Habitrol] 1 patch TRANSDERM DAILY #30 patch Metoprolol Tartrate [Lopressor] 75 mg PO BID #90 tab predniSONE 10 mg PO DIRECTED #30 tab Continue ALPRAZolam [Xanax] 0.5 mg PO HS Mometasone/Formoterol [Dulera 200 Mcg-5 Mcg Inhaler] 2 puff INHALATION RT-BID Rivaroxaban [Xarelto] 15 mg PO DAILY Levothyroxine Sodium [Synthroid] 150 mcg PO DAILY Albuterol Nebulized [Ventolin Nebulized] 2.5 mg INHALATION RT-QID Albuterol Sulfate [Proair Respiclick] 1 puff INHALATION RT-QID PRN PRN Reason: Shortness Of Breath Sertraline HCl [Zoloft] 50 mg PO HS Atorvastatin [Lipitor] 20 mg PO HS Furosemide [Lasix] 20 mg PO HS Furosemide [Lasix] 40 mg PO DAILY predniSONE 5 mg PO DAILY #0 Discontinued Metoprolol Tartrate [Lopressor] 50 mg PO BID Losartan [Cozaar] 25 mg PO HS Discharge Medication List ALPRAZolam [Xanax] 0.5 mg PO HS 08/26/15 [History] Mometasone/Formoterol [Dulera 200 Mcg-5 Mcg Inhaler] 2 puff INHALATION RT-BID 08/26/15 [History] Albuterol Nebulized [Ventolin Nebulized] 2.5 mg INHALATION RT-QID 04/27/19 [History] Levothyroxine Sodium [Synthroid] 150 mcg PO DAILY 04/27/19 [History] Rivaroxaban [Xarelto] 15 mg PO DAILY 04/27/19 [History] Albuterol Sulfate [Proair Respiclick] 1 puff INHALATION RT-QID PRN 06/20/21 [History] Atorvastatin [Lipitor] 20 mg PO HS 07/09/21 [History] Furosemide [Lasix] 20 mg PO HS 07/09/21 [History] Furosemide [Lasix] 40 mg PO DAILY 07/09/21 [History] Sertraline HCl [Zoloft] 50 mg PO HS 07/09/21 [History] Metoprolol Tartrate [Lopressor] 75 mg PO BID #90 tab 07/11/21 [Rx] Nicotine 21Mg/24Hr Patch [Habitrol] 1 patch TRANSDERM DAILY #30 patch 07/11/21 [Rx] predniSONE 5 mg PO DAILY #0 07/11/21 [Rx] predniSONE 10 mg PO DIRECTED #30 tab 07/11/21 [Rx] Follow up Appointment(s)/Referral(s): Kaveh Meyers MD [Primary Care Provider] - 07/12/21 4:30 pm Jah Lagos DO [Doctor of Osteopathic Medicine] - 07/20/21 3:00 pm [facility] Visiting Nurse, [NON-STAFF] - Patient Instructions/Handouts: Aspiration Pneumonia (DC), COPD (Chronic Obstructive Pulmonary Disease) (DC) Discharge Disposition: HOME SELF-CARE
== END 2021-07-11 16:21 | disposition home or self-care (01) | DRG 190 ==
LOC: EC 14:11 → 3SCARD 17:14
PROVIDERS: ADMIT Family Medicine; ATTEND Family Medicine
PROC: 3E0F7SF Introduction of Other Gas into Respiratory Tract, Via Natural or Artificial Opening (ICD-10-PCS; principal; 2021-07-09)
DX: J44.1 Chronic obstructive pulmonary disease with (acute) exacerbation (principal); I50.33 Acute on chronic diastolic (congestive) heart failure; J18.9 Pneumonia, unspecified organism; J96.01 Acute respiratory failure with hypoxia; E44.0 Moderate protein-calorie malnutrition; N17.9 Acute kidney failure, unspecified; Z68.1 Body mass index [BMI] 19.9 or less, adult; Z20.822 Contact with and (suspected) exposure to COVID-19; I48.0 Paroxysmal atrial fibrillation; D64.9 Anemia, unspecified; D69.6 Thrombocytopenia, unspecified; E03.9 Hypothyroidism, unspecified; E78.5 Hyperlipidemia, unspecified; E86.0 Dehydration; F17.210 Nicotine dependence, cigarettes, uncomplicated; I25.10 Atherosclerotic heart disease of native coronary artery without angina pectoris; I25.2 Old myocardial infarction; J44.0 Chronic obstructive pulmonary disease with (acute) lower respiratory infection; K75.4 Autoimmune hepatitis; R13.10 Dysphagia, unspecified; Z79.01 Long term (current) use of anticoagulants; Y95 Nosocomial condition; Z79.52 Long term (current) use of systemic steroids; Z79.51 Long term (current) use of inhaled steroids; Z79.890 Hormone replacement therapy; Z85.21 Personal history of malignant neoplasm of larynx; Z86.718 Personal history of other venous thrombosis and embolism; Z86.79 Personal history of other diseases of the circulatory system; Z87.19 Personal history of other diseases of the digestive system; Z80.3 Family history of malignant neoplasm of breast; Z79.899 Other long term (current) drug therapy; Z92.3 Personal history of irradiation; Z95.5 Presence of coronary angioplasty implant and graft; Z88.5 Allergy status to narcotic agent; Z98.42 Cataract extraction status, left eye; Z98.41 Cataract extraction status, right eye; Z90.49 Acquired absence of other specified parts of digestive tract
CPT/HCPCS: 36415; 71046; 74230; 80048; 80053; 83605; 83735; 83880; 84145; 84484; 85025; 85610; 85730; 86140; 87040; 87635; 93005; 94640; 94760; 96374; 96375; 99285

== ENCOUNTER 2021-07-18 13:59 | Inpatient (IN) | payer MEDICARE ==
[2021-07-18] MEDS ORDERED: SODIUM CHLORIDE 0.9% 500 ML 500 ML IV STA (14:08)
--- NOTE | 2021-07-18 14:17 | ED ---
General Adult HPI - General Chief complaint: Seizure Stated complaint: seizure Time Seen by Provider: 07/18/21 14:05 Source: patient, EMS, RN notes reviewed, old records reviewed Mode of arrival: EMS Limitations: no limitations - History of Present Illness Initial comments: This is an 80-year-old male who presents emergency Department with a past medica l history significant for seizures, abdominal aortic repair high blood pressure and atrial fibrillation and is on a blood thinner. Patient comes in today via EMS and the report received was that he had 2 brief seizures at home and they were called. Per EMS he was never postictal. EMS did state he had multiple PVCs but will patient was without complaint. Patient currently states he feels better at this time. Patient denied any chest pain difficulty breathing. Patient denies any palpitations. Patient denies any headache patient denies numbness or weakness. finally showed up and indicated to us that the patient only had 1 episode of being incoherent and it lasted less than 5 minutes. states he did shake a little but he was never unconscious. states he does not have a history of seizures - Related Data Home Medications Medication Instructions Recorded Confirmed ALPRAZolam [Xanax] 0.5 mg PO HS 08/26/15 07/09/21 Mometasone/Formoterol [Dulera 200 2 puff INHALATION RT-BID 08/26/15 07/09/21 Mcg-5 Mcg Inhaler] Albuterol Nebulized [Ventolin 2.5 mg INHALATION RT-QID 04/27/19 07/09/21 Nebulized] Levothyroxine Sodium [Synthroid] 150 mcg PO DAILY 04/27/19 07/09/21 Rivaroxaban [Xarelto] 15 mg PO DAILY 04/27/19 07/09/21 Albuterol Sulfate [Proair 1 puff INHALATION RT-QID PRN 06/20/21 07/09/21 Respiclick] Atorvastatin [Lipitor] 20 mg PO HS 07/09/21 07/09/21 Furosemide [Lasix] 20 mg PO HS 07/09/21 07/09/21 Furosemide [Lasix] 40 mg PO DAILY 07/09/21 07/09/21 Sertraline HCl [Zoloft] 50 mg PO HS 07/09/21 07/09/21 Previous Rx's Medication Instructions Recorded Metoprolol Tartrate [Lopressor] 75 mg PO BID #90 tab 07/11/21 Nicotine 21Mg/24Hr Patch [Habitrol] 1 patch TRANSDERM DAILY #30 patch 07/11/21 predniSONE 5 mg PO DAILY #0 07/11/21 predniSONE 10 mg PO DIRECTED #30 tab 07/11/21 Allergies Allergy/AdvReac Type Severity Reaction Status Date / Time codeine AdvReac Nausea & Verified 07/18/21 14:03 Vomiting Review of Systems ROS Statement: Those systems with pertinent positive or pertinent negative responses have been documented in the HPI. ROS Other: All systems not noted in ROS Statement are negative. Past Medical History Past Medical History: Atrial Fibrillation, COPD, Deep Vein Thrombosis (DVT), My ocardial Infarction (IA), Thyroid Disorder Additional Past Medical History / Comment(s): HX ABDOMINAL AORTIC ANEURYSM,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 cardiac cath with stenting Past Anesthesia/Blood Transfusion Reactions: No Reported Reaction Past Psychological History: No Psychological Hx Reported Smoking Status: Current every day smoker Past Alcohol Use History: None Reported Past Drug Use History: None Reported - Past Family History Mother Family Medical History: Cancer Additional Family Medical History / Comment(s): breast CA Father Additional Family Medical History / Comment(s): COLOSTOMY Daughter(s) Family Medical History: Deep Vein Thrombosis (DVT) Additional Family Medical History / Comment(s): HX FACTOR FIVE LEIDEN General Exam - General Exam Comments Initial Comments: GENERAL: Patient is well-developed and well-nourished. Patient is nontoxic and well- hydrated and is in no acute distress. ENT: Neck is soft and supple. No significant lymphadenopathy is noted. Oropharynx is clear. Moist mucous membranes. Neck has full range of motion without eliciting any pain. EYES: The sclera were anicteric and conjunctiva were pink and moist. Extraocular movements were intact and pupils were equal round and reactive to light. Eyelids were unremarkable. PULMONARY: Unlabored respirations. Good breath sounds bilaterally. No audible rales rhonchi or wheezing was noted. CARDIOVASCULAR: Patient is a irregular rate and rhythm ABDOMEN: Soft and nontender with normal bowel sounds. SKIN: Skin is clear with no lesions or rashes and otherwise unremarkable. NEUROLOGIC: Patient is alert and oriented x3. Cranial nerves II through XII are grossly intact. Motor and sensory are also intact. Normal speech, volume and content. Symmetrical smile. MUSCULOSKELETAL: Normal extremities with adequate strength and full range of motion. No lower extremity swelling or edema. No calf tenderness. LYMPHATICS: No significant lymphadenopathy is noted PSYCHIATRIC: Normal psychiatric evaluation. Limitations: no limitations Course Vital Signs 07/18/21 07/18/21 14:04 15:53 Temperature 97.3 F L Pulse Rate 86 69 Respiratory 18 18 Rate Blood Pressure 107/84 106/86 O2 Sat by Pulse 97 98 Oximetry Medical Decision Making - Medical Decision Making EKG shows atrial fibrillation with occasional PVC at 86 bpm QRS is 82 QT interval 392 QTC is 469. EKG shows no ST segment elevation or depression. Patient's CT of the brain shows no acute abnormality. After speaking with the extensively it does not appear the patient had a seizure it sounds more like the patient had a near syncopal or syncopal episode. Patient's states that patient is supposed to be on Thick-It in his diet but has not yet been coordinated to the visiting nursing. I spoke with Dr. Dr. Meyers he agreed to admit the patient admitted the patient wrote admitting orders I consult cardiology Patient just had a swallow study and it shows that the patient was aspirating some of the barium. - Lab Data Result diagrams: 07/18/21 14:15 07/18/21 14:15 Lab Results 07/18/21 07/18/21 07/18/21 Range/Units 14:15 14:15 14:15 WBC 11.0 H (3.8-10.6) k/uL RBC 4.50 (4.30-5.90) m/uL Hgb 12.2 L (13.0-17.5) gm/dL Hct 38.2 L (39.0-53.0) % MCV 84.8 (80.0-100.0) fL MCH 27.0 (25.0-35.0) pg MCHC 31.8 (31.0-37.0) g/dL RDW 17.3 H (11.5-15.5) % Plt Count 121 L (150-450) k/uL MPV 8.9 Neutrophils % 91 % Lymphocytes % 4 % Monocytes % 4 % Eosinophils % 0 % Basophils % 0 % Neutrophils # 9.9 H (1.3-7.7) k/uL Lymphocytes # 0.4 L (1.0-4.8) k/uL Monocytes # 0.5 (0-1.0) k/uL Eosinophils # 0.0 (0-0.7) k/uL Basophils # 0.0 (0-0.2) k/uL Hypochromasia Moderate Poikilocytosis Slight Anisocytosis Slight Sodium 144 (137-145) mmol/L Potassium 3.7 (3.5-5.1) mmol/L Chloride 106 (98-107) mmol/L Carbon Dioxide 24 (22-30) mmol/L Anion Gap 14 mmol/L BUN 43 H (9-20) mg/dL Creatinine 1.39 H (0.66-1.25) mg/dL Est GFR (CKD-EPI)AfAm 54 (>60 ml/min/1.73 sqM) Est GFR (CKD-EPI)NonAf 47 (>60 ml/min/1.73 sqM) Glucose 125 H (74-99) mg/dL Calcium 8.8 (8.4-10.2) mg/dL Magnesium 2.2 (1.6-2.3) mg/dL Total Bilirubin 0.7 (0.2-1.3) mg/dL AST 28 (17-59) U/L ALT 18 (4-49) U/L Alkaline Phosphatase 54 (38-126) U/L Troponin I 0.039 H* (0.000-0.034) ng/mL NT-Pro-B Natriuret Pep pg/mL Total Protein 5.8 L (6.3-8.2) g/dL Albumin 3.1 L (3.5-5.0) g/dL 07/18/21 Range/Units 14:15 WBC (3.8-10.6) k/uL RBC (4.30-5.90) m/uL Hgb (13.0-17.5) gm/dL Hct (39.0-53.0) % MCV (80.0-100.0) fL MCH (25.0-35.0) pg MCHC (31.0-37.0) g/dL RDW (11.5-15.5) % Plt Count (150-450) k/uL MPV Neutrophils % % Lymphocytes % % Monocytes % % Eosinophils % % Basophils % % Neutrophils # (1.3-7.7) k/uL Lymphocytes # (1.0-4.8) k/uL Monocytes # (0-1.0) k/uL Eosinophils # (0-0.7) k/uL Basophils # (0-0.2) k/uL Hypochromasia Poikilocytosis Anisocytosis Sodium (137-145) mmol/L Potassium (3.5-5.1) mmol/L Chloride (98-107) mmol/L Carbon Dioxide (22-30) mmol/L Anion Gap mmol/L BUN (9-20) mg/dL Creatinine (0.66-1.25) mg/dL Est GFR (CKD-EPI)AfAm (>60 ml/min/1.73 sqM) Est GFR (CKD-EPI)NonAf (>60 ml/min/1.73 sqM) Glucose (74-99) mg/dL Calcium (8.4-10.2) mg/dL Magnesium (1.6-2.3) mg/dL Total Bilirubin (0.2-1.3) mg/dL AST (17-59) U/L ALT (4-49) U/L Alkaline Phosphatase (38-126) U/L Troponin I (0.000-0.034) ng/mL NT-Pro-B Natriuret Pep 3390 pg/mL Total Protein (6.3-8.2) g/dL Albumin (3.5-5.0) g/dL Disposition Clinical Impression: Syncope, History of airway aspiration Disposition: ADMITTED IP TO THIS HOSP Referrals: Kaveh Meyers MD [Primary Care Provider] - 1-2 days Time of Disposition: 16:27
[2021-07-18 14:44] LABS: Albumin 3.1 g/dL (3.5-5.0); Calcium 8.8 mg/dL (8.4-10.2); Magnesium 2.2 mg/dL (1.6-2.3); Potassium 3.7 mmol/L (3.5-5.1); Total Bilirubin 0.7 mg/dL (0.2-1.3); Total Protein 5.8 g/dL (6.3-8.2)
--- NOTE | 2021-07-18 14:51 | XR ---
EXAMINATION TYPE: XR chest 2V DATE OF EXAM: 07/18/2021 COMPARISON: 07/09/2021 HISTORY: Shortness of breath TECHNIQUE: Frontal and lateral views of the chest are obtained. FINDINGS: Scattered senescent parenchymal changes noted. Hyperinflation compatible with COPD. No evidence for infiltrate. Left lower lobe atelectasis or parenchymal scarring is stable. Heart size is stable. Mediastinal structures are stable and grossly unremarkable. No evidence for hilar prominence. Degenerative changes dorsal spine. IMPRESSION: 1. No evidence for acute pulmonary disease.
[2021-07-18 15:20] LABS: Anisocytosis Slight; Basophils % (A) 0 %; Eosinophils % (A) 0 %; HCT 38.2 % (39.0-53.0); HGB 12.2 gm/dL (13.0-17.5); Hypochromasia Moderate; Lymphocytes # (A) 0.4 k/uL (1.0-4.8); Lymphocytes % (A) 4 %; MCHC 31.8 g/dL (31.0-37.0); MCV 84.8 fL (80.0-100.0); Mean Platelet Volume 8.9; Monocytes # (A) 0.5 k/uL (0-1.0); Monocytes % (A) 4 %; Neutrophils # (A) 9.9 k/uL (1.3-7.7); Neutrophils % (A) 91 %; Platelet Count 121 k/uL (150-450); Poikilocytosis Slight; RDW 17.3 % (11.5-15.5)
--- NOTE | 2021-07-18 15:28 | CT ---
EXAMINATION TYPE: CT brain wo con DATE OF EXAM: 07/18/2021 COMPARISON: none HISTORY: unresponsive CT DLP: 1099.[address] of the brain was performed. The ventricles, basal cisterns and sulci overlying the cerebral convexities demonstrate mild enlargem ent. There is no evidence for intracranial hemorrhage or sulcal effacement. There is decreased attenuation about the periventricular white matter and deep white matter of both c erebral hemispheres, compatible with chronic small vessel ischemia. Differential diagnosis does inclu de demyelination. No mass effects are seen.No midline shift. Osseous calvarium is intact. If symptoms persist consider MRI. IMPRESSION: 1. Age related atrophic and chronic small vessel ischemic change without acute intracranial process s een at this time.
[2021-07-18] MEDS ORDERED: SODIUM CHLORIDE 0.9% 1,000 ML IV ONE (16:32)
[2021-07-18] MEDS ORDERED: NICOTINE 14MG/24HR PATCH TRANSDERM STA (17:12)
[2021-07-18 17:57] LABS: INR 1.7 (<1.2); Partial Thromboplastin Time 26.7 sec (22.0-30.0); Prothrombin Time 16.5 sec (9.0-12.0)
[2021-07-18] MEDS ORDERED: ACETAMINOPHEN TAB 325 MG TAB PO PRN (17:59)
[2021-07-18] MEDS ORDERED: LOSARTAN 25 MG TAB PO SCH (21:00)
[2021-07-18] MEDS ORDERED: METOPROLOL TARTRATE 50 MG TAB PO SCH (21:00)
[2021-07-18] MEDS: SERTRALINE 50 MG TAB PO SCH (21:13)
[2021-07-18] MEDS: MIDODRINE 5 MG TAB PO SCH (21:13)
[2021-07-18] MEDS: ATORVASTATIN 20 MG TAB PO SCH (21:13)
[2021-07-18] MEDS: ALBUTEROL NEBULIZED 2.5 MG/3 ML INHALATION SCH ×2 (21:30→21:33)
[2021-07-18] MEDS: ALPRAZolam 0.5 MG TAB PO SCH (22:20)
[2021-07-19] MEDS: MIDODRINE 5 MG TAB PO SCH ×3 (06:27→15:02)
[2021-07-19] MEDS: LEVOTHYROXINE 75 MCG TAB PO SCH (06:27)
[2021-07-19] MEDS: ALBUTEROL NEBULIZED 2.5 MG/3 ML INHALATION SCH ×4 (07:02→19:05)
[2021-07-19] MEDS: NICOTINE 21MG/24HR PATCH TRANSDERM SCH (08:14)
[2021-07-19] MEDS ORDERED: RIVAROXABAN 15 MG TAB PO SCH (09:00)
--- NOTE | 2021-07-19 09:48 | XR ---
EXAMINATION TYPE: XR chest 1V portable DATE OF EXAM: 07/19/2021 COMPARISON: 07/18/2021 HISTORY: Shortness of breath TECHNIQUE: Single frontal view of the chest is obtained. FINDINGS: Hyperinflation with cardiomegaly. Patchy interstitial infiltrates. No pneumothorax. Chroni c interstitial lung disease suspected. Atherosclerotic change aorta. Diffuse osteopenia and arthropat hy of the shoulders. IMPRESSION: 1. COPD correlate for chronic interstitial lung disease. Superimposed interstitial pneumonitis in the differential diagnosis.
[2021-07-19 11:03] VITALS: BMI 17.8
[2021-07-19] MEDS: ENOXAPARIN 40 MG/0.4 ML SYRINGE SQ SCH (11:04)
[2021-07-19] MEDS: METOPROLOL TARTRATE 25 MG TAB PO SCH (11:04)
--- NOTE | 2021-07-19 11:31 | P.CRDCN ---
History of Present Illness Consult date: 07/19/21 History of present illness: HISTORY OF PRESENT ILLNESS: This is a 80-year-old male with a past medical history significant for chronic persistent atrial fibrillation, vocal cord cancer with multiple radiation treatments, congestive heart failure, peripheral vascular disease, coronary artery disease, and nicotine dependence. Patient follows in the office with Dr. Patel. We have been asked to see the patient in consultation for syncope. Patient examined at the bedside. Patient's is present. She is providing majority of the HPI. She states the patient has not been eating or drinking for the past week. She states he is supposed to be on thickened liquids at home but does not like it. She states he has occasionally had a few ice chips but then begins coughing afterwards. She patient apparently had two syncopal episodes at home. The believes the patient did lose consciousness. He denies any chest pain or pressure. Denies shortness of breath. The patient is currently nothing by mouth as he failed his swallow screen. The patient's says a PEG tube has been discussed in the past but the patient does not want it. The patient was found to have acute kidney injury with a creatinine of 1.39. Patient was also found to have positive orthostatic blood pressures. Blood pressure sitting 83/51. The pressure supine 83/42. Blood pressure standing 62/50. EKG reveals afib with controlled ventricular rate with nonspecific ST-T wave changes Chest xray COPD. Correlate for chronic interstitial lung disease. Superimposed interstitial pneumonitis in the differential diagnosis. Laboratory data: WBC 11.0. Hemoglobin 12.2. Platelet count 121. Sodium 144. Potassium 3.7. BUN 43. Creatinine 1.39. Troponin 0.039. ProBNP 3390. Current home cardiac medications include metoprolol tartrate 59 g twice a day, Xarelto 15 mg daily, losartan 25 mg at night, atorvastatin 20 mg at night Most recent echocardiogram obtained in June 2021 revealed ejection fraction 45-50%, LV wall hypokinesis, mild aortic regurgitation, moderate mitral regurgitation, and moderate tricuspid regurgitation, and moderate to severe pulmonary hypertension REVIEW OF SYSTEMS: At the time of my exam: CONSTITUTIONAL: Denies fever or chills. HEENT: Denies blurred vision, vision changes, or eye pain. Denies hemoptysis CARDIOVASCULAR: Denies chest pain. Denies orthopnea. Denies PND. Denies palpitations RESPIRATORY: Denies shortness of breath. GASTROINTESTINAL: Denies abdominal pain. Denies nausea or vomiting. HEMATOLOGIC: Denies bleeding disorders. GENITOURINARY: Denies any blood in urine. SKIN: Denies pruitis. Denies rash. PHYSICAL EXAM: VITAL SIGNS: Reviewed. GENERAL: Well-developed in no acute distress. HEENT: Head is normocephalic. Pupils are equal, round. Sclerae anicteric. Mucous membranes of the mouth are moist. Neck supple. No JVD or thyromegaly LUNGS: Respirations even and unlabored. Lungs diminished to auscultation bilaterally. HEART: Irregular rate and rhythm. S1 and S2 heard. ABDOMEN: Soft. Nondistended. Nontender. EXTREMITIES: Normal range of motion. No clubbing or cyanosis. Peripheral pulses intact. No lower extremity edema NEUROLOGIC: Awake and alert. Oriented x 3. ASSESSMENT: Syncope, likely secondary to orthostatic hypotension, secondary to decreased oral intake Orthostatic hypotension Acute kidney injury, secondary to not eating or drinking x 1 week Dysphagia with failed swallow screen, patient refusing PEG tube Chronic persistent atrial fibrillation History of vocal cord cancer with multiple radiation treatments Chronic diastolic congestive heart failure Peripheral vascular disease Coronary artery disease Hyperlipidemia Nicotine dependence PLAN: No need to repeat echo Monitor blood pressure Patient unable to tolerate oral medications right now. However, will DC losartan and decrease dose of metoprolol for when/if patient is able to tolerate medications Begin IVF at 75cc/hr Monitor kidney function Further recommendations pending patient course Nurse practitioner note has been reviewed by physician. Signing provider agrees with the documented findings, assessment, and plan of care. Past Medical History Past Medical History: Atrial Fibrillation, COPD, Deep Vein Thrombosis (DVT), Myocardial Infarction ([place]), Thyroid Disorder Additional Past Medical History / Comment(s): HX ABDOMINAL AORTIC ANEURYSM,VOCAL CORD [place]-2008 RADIATION,AUTOIMMUNE HEPATITIS, COLON POLYPS, rt elbow bursa, dys phagia, rt carotid artery blocked Last Myocardial Infarction Date:: UNK History of Any Multi-Drug Resistant Organisms: None Reported Past Surgical History: Cholecystectomy Additional Past Surgical History / Comment(s): ABDOMINAL AORTIC ANEURYSM REPAIR WITH STENTS,COLONOSCOPY,NHAN CATARACTS, lt carotid artery surgery. cardiac cath with stenting Past Anesthesia/Blood Transfusion Reactions: No Reported Reaction Past Psychological History: No Psychological Hx Reported Smoking Status: Current every day smoker Past Alcohol Use History: None Reported Additional Past Alcohol Use History / Comment(s): STARTED SMOKING 1956 10 cigarettes/day Past Drug Use History: None Reported - Past Family History Mother Family Medical History: Cancer Additional Family Medical History / Comment(s): breast CA Father Additional Family Medical History / Comment(s): COLOSTOMY Daughter(s) Family Medical History: Deep Vein Thrombosis (DVT) Additional Family Medical History / Comment(s): HX FACTOR FIVE LEIDEN Medications and Allergies Home Medications Medication Instructions Recorded Confirmed Type ALPRAZolam [Xanax] 0.5 mg PO HS 08/26/15 07/18/21 History Mometasone/Formoterol [Dulera 200 2 puff INHALATION RT-BID 08/26/15 07/18/21 History Mcg-5 Mcg Inhaler] Albuterol Nebulized [Ventolin 2.5 mg INHALATION RT-QID 04/27/19 07/18/21 History Nebulized] Rivaroxaban [Xarelto] 15 mg PO DAILY 04/27/19 07/18/21 History Albuterol Sulfate [Proair 1 puff INHALATION RT-QID PRN 06/20/21 07/18/21 History Respiclick] Sertraline HCl [Zoloft] 50 mg PO HS 07/09/21 07/18/21 History Nicotine 21Mg/24Hr Patch [Habitrol] 1 patch TRANSDERM DAILY #30 patch 07/11/21 07/18/21 Rx Losartan [Cozaar] 25 mg PO HS 07/18/21 07/18/21 History Metoprolol Tartrate [Lopressor] 50 mg PO BID 07/18/21 07/18/21 History predniSONE 5 mg PO HS 07/18/21 07/18/21 History Allergies Allergy/AdvReac Type Severity Reaction Status Date / Time codeine AdvReac Nausea & Verified 07/18/21 16:44 Vomiting Physical Exam Vitals: Vital Signs Temp Pulse Pulse Resp BP BP BP 07/19/21 07:02 86 18 07/19/21 06:57 20 07/19/21 02:58 97.0 F L 80 18 07/19/21 02:00 80 18 07/19/21 00:00 98.0 F 80 18 07/18/21 21:30 83/51 62/50 07/18/21 20:00 97.6 F 71 20 07/18/21 17:50 97.6 F 60 20 07/18/21 15:53 69 18 106/86 07/18/21 14:04 97.3 F L 86 18 107/84 BP BP Pulse Ox 07/19/21 07:02 07/19/21 06:57 94 L 07/19/21 02:58 109/76 96 07/19/21 02:00 07/19/21 00:00 103/78 95 07/18/21 21:30 83/42 07/18/21 20:00 103/63 97 07/18/21 17:50 107/82 98 07/18/21 15:53 98 07/18/21 14:04 97 Intake and Output 07/18/21 07/19/21 07/19/21 22:59 06:59 14:59 Intake Total 375 Balance 375 Intake: Intake, IV Titration 375 Amount Sodium Chloride 0.9% 1, 375 000 ml @ 75 mls/hr IV . [id number] ONE Rx#:[id number] Other: Voiding Method Bedside Commode Bedside Commode Urinal Urinal # Voids 2 # Bowel Movements 1 Weight 53.07 kg Results 07/18/21 14:15 07/18/21 14:15 Cardiac Enzymes 07/18/21 07/18/21 Range/Units 14:15 14:15 AST 28 (17-59) U/L Troponin I 0.039 H* (0.000-0.034) ng/mL Coagulation 07/18/21 Range/Units 14:15 PT 16.5 H (9.0-12.0) sec APTT 26.7 (22.0-30.0) sec CBC 07/18/21 Range/Units 14:15 WBC 11.0 H (3.8-10.6) k/uL RBC 4.50 (4.30-5.90) m/uL Hgb 12.2 L (13.0-17.5) gm/dL Hct 38.2 L (39.0-53.0) % Plt Count 121 L (150-450) k/uL Comprehensive Metabolic Panel 07/18/21 Range/Units 14:15 Sodium 144 (137-145) mmol/L Potassium 3.7 (3.5-5.1) mmol/L Chloride 106 (98-107) mmol/L Carbon Dioxide 24 (22-30) mmol/L BUN 43 H (9-20) mg/dL Creatinine 1.39 H (0.66-1.25) mg/dL Glucose 125 H (74-99) mg/dL Calcium 8.8 (8.4-10.2) mg/dL AST 28 (17-59) U/L ALT 18 (4-49) U/L Alkaline Phosphatase 54 (38-126) U/L Total Protein 5.8 L (6.3-8.2) g/dL Albumin 3.1 L (3.5-5.0) g/dL Current Medications Generic Name Dose Route Start Last Admin Trade Name Freq PRN Reason Stop Dose Admin Acetaminophen 650 mg 07/18/21 17:59 07/18/21 18:08 Acetaminophen Tab 325 Mg Tab PO 650 mg Q6HR PRN Administration Fever and/ or Mild Pain Albuterol Sulfate 2.5 mg 07/18/21 20:00 07/19/21 07:02 Albuterol Nebulized 2.5 Mg/3 Ml INHALATION 2.5 mg RT-QID OMI Administration Alprazolam 0.5 mg 07/18/21 21:00 07/18/21 22:20 Alprazolam 0.5 Mg Tab PO 0.5 mg HS OMI Administration Atorvastatin Calcium 20 mg 07/18/21 21:00 07/18/21 21:13 Atorvastatin 20 Mg Tab PO 20 mg HS OMI Administration Levothyroxine Sodium 150 mcg 07/19/21 06:30 07/19/21 06:27 Levothyroxine 75 Mcg Tab PO 150 mcg 0630 OMI Administration Metoprolol Tartrate 25 mg 07/19/21 09:00 Metoprolol Tartrate 50 Mg Tab PO BID OMI Midodrine 10 mg 07/18/21 20:54 07/19/21 06:27 Midodrine 5 Mg Tab PO 10 mg AC-TID OMI Administration Nicotine 1 patch 07/19/21 09:00 07/19/21 08:14 Nicotine 21mg/24hr Patch TRANSDERM 1 patch DAILY OMI Administration Rivaroxaban 15 mg 07/19/21 09:00 Rivaroxaban 15 Mg Tab PO DAILY OMI Protocol Sertraline HCl 50 mg 07/18/21 21:00 07/18/21 21:13 Sertraline 50 Mg Tab PO 50 mg HS OMI Administration Intake and Output 07/18/21 07/19/21 07/19/21 22:59 06:59 14:59 Intake Total 375 Balance 375 Intake: Intake, IV Titration 375 Amount Sodium Chloride 0.9% 1, 375 000 ml @ 75 mls/hr IV . [id number] ONE Rx#:[id number] Other: Voiding Method Bedside Commode Bedside Commode Urinal Urinal # Voids 2 # Bowel Movements 1 Weight 53.07 kg 07/18/21 14:15 07/18/21 14:15
[2021-07-19] MEDS: SODIUM CHLORIDE 0.9% 1,000 ML IV SCH (12:57)
--- NOTE | 2021-07-19 14:07 | P.GSCN ---
History of Present Illness Consult date: 07/19/21 History of present illness: CHIEF COMPLAINT: Syncopal episode Reason for consult: PEG tube placement HISTORY OF PRESENT ILLNESS: This is a 80-year-old male with a known history of vocal cord cancer status post radiation treatment. Patient has had dysphagia due to radiation treatment. He has had also had issues with aspiration pneumonias. Patient has refused PEG tube in the past. Patient admitted to the hospital for possible syncopal episode. Patient has not been eating or drinking well for the past week. He is supposed to be using a thickened liquids at home. And does not like the thickened liquids. Patient had evidence of acute kidney injury and positive orthostatic blood pressures. He has been evaluated by cardiology. He also has a known history of atrial fibrillation and is on Xarelto at home and is currently on hold. Most of history obtained from patient's . PAST MEDICAL HISTORY: Atrial Fibrillation, COPD, Deep Vein Thrombosis (DVT), Myocardial Infarction ([place]), Thyroid Disorder, ABDOMINAL AORTIC ANEURYSM,VOCAL CORD [place]-2008 RADIATI ON,AUTOIMMUNE HEPATITIS, COLON POLYPS, rt elbow bursa, dysphagia, rt carotid artery blocked PAST SURGICAL HISTORY: Status post abdominal aortic aneurysm repair with stent, cholecystectomy, chronic catheterization with stenting MEDICATIONS: See list. ALLERGIES: See list. SOCIAL HISTORY: No illicit drug use. Positive smoker REVIEW OF SYSTEMS: CONSTITUTIONAL: Denies fever or chills. HEENT: Denies blurred vision, vision changes, or eye pain. Denies hemoptysis CARDIOVASCULAR: Denies chest pain or pressure. RESPIRATORY: No shortness of breath. GASTROINTESTINAL: Denies any abdominal pain. Denies any nausea or vomiting. HEMATOLOGIC: Denies bleeding disorders. GENITOURINARY: Denies any blood in urine or increased urinary frequency. SKIN: Denies pruitis. Denies rash. PHYSICAL EXAM: VITAL SIGNS: Reviewed GENERAL: Well-developed in no acute distress. HEENT: No sclera icterus. Extraocular movements grossly intact. Moist buccal mucosa. Head is atraumatic, normocephalic. No nasal drainage. ABDOMEN: Soft. Nondistended. Nontender. Old scar along mid abdomen from abdominal aortic aneurysm repair NEUROLOGIC: Alert and oriented. Cranial nerves II through XII grossly intact. LABORATORY DATA: WBC is 11 Hgb 12.2 platlets 121 INR 1.7 Sodium 144 potassium 3.7 BUN 43 creatinine 1.39 Troponin 0.039 BNP 3390 Protocol calcitonin 0.06 COVID-19 not detected Albumin 3.1 IMAGING: Chest x-ray COPD correlate for chronic interstitial lung disease. Superimposed interstitial pneumonitis in the differential diagnosis CT of brain age-related atrophic and chronic small vessel ischemic changes without acute intracranial process ASSESSMENT: 1. Dysphagia 2. Moderate protein calorie malnutrition 3. History of vocal cord cancer status post radiation treatment 4. Acute kidney injury 5. Poor oral intake 6. Failed swallow evaluation 7. Syncopal episode with orthostatic hypotension and decreased oral intake PLAN: -Patient and are unsure if they want to proceed with PEG tube placement. PEG tube placement is tentatively scheduled for , 07/21/[address] Taylor in case patient wishes to proceed with PEG tube placement. -Continue supportive care -Keep Xarelto on hold Thank you for this consultation Physician Service Electrician note has been reviewed by physician. Signing provider agrees with the documented findings, assessment, and plan of care. Past Medical History Past Medical History: Atrial Fibrillation, COPD, Deep Vein Thrombosis (DVT), Myocardial Infarction ([place]), Thyroid Disorder Additional Past Medical History / Comment(s): HX ABDOMINAL AORTIC ANEURYSM,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 cardiac cath with stenting Past Anesthesia/Blood Transfusion Reactions: No Reported Reaction Past Psychological History: No Psychological Hx Reported Smoking Status: Current every day smoker Past Alcohol Use History: None Reported Additional Past Alcohol Use History / Comment(s): STARTED SMOKING 1956 10 cigarettes/day Past Drug Use History: None Reported - Past Family History Mother Family Medical History: Cancer Additional Family Medical History / Comment(s): breast CA Father Additional Family Medical History / Comment(s): COLOSTOMY Daughter(s) Family Medical History: Deep Vein Thrombosis (DVT) Additional Family Medical History / Comment(s): HX FACTOR FIVE LEIDEN Medications and Allergies Home Medications Medication Instructions Recorded Confirmed Type ALPRAZolam [Xanax] 0.5 mg PO HS 08/26/15 07/18/21 History Mometasone/Formoterol [Dulera 200 2 puff INHALATION RT-BID 08/26/15 07/18/21 History Mcg-5 Mcg Inhaler] Albuterol Nebulized [Ventolin 2.5 mg INHALATION RT-QID 04/27/19 07/18/21 History Nebulized] Levothyroxine Sodium [Synthroid] 150 mcg PO DAILY 04/27/19 07/18/21 History Rivaroxaban [Xarelto] 15 mg PO DAILY 04/27/19 07/18/21 History Albuterol Sulfate [Proair 1 puff INHALATION RT-QID PRN 06/20/21 07/18/21 History Respiclick] Atorvastatin [Lipitor] 20 mg PO HS 07/09/21 07/18/21 History Sertraline HCl [Zoloft] 50 mg PO HS 07/09/21 07/18/21 History Nicotine 21Mg/24Hr Patch [Habitrol] 1 patch TRANSDERM DAILY #30 patch 07/11/21 07/18/21 Rx Losartan [Cozaar] 25 mg PO HS 07/18/21 07/18/21 History Megestrol [Megace] 40 mg PO DAILY 07/18/21 07/18/21 History Metoprolol Tartrate [Lopressor] 50 mg PO BID 07/18/21 07/18/21 History predniSONE 5 mg PO HS 07/18/21 07/18/21 History Allergies Allergy/AdvReac Type Severity Reaction Status Date / Time codeine AdvReac Nausea & Verified 07/18/21 16:44 Vomiting Surgical - Exam Vital Signs Temp Pulse Resp BP Pulse Ox 97.3 F L 86 18 107/84 97 07/18/21 14:04 07/18/21 14:04 07/18/21 14:04 07/18/21 14:04 07/18/21 14:04 Results - Labs 07/18/21 14:15 07/18/21 14:15 Abnormal Lab Results - Last 24 Hours (Table) 07/18/21 07/18/21 07/18/21 Range/Units 14:15 14:15 14:15 WBC 11.0 H (3.8-10.6) k/uL Hgb 12.2 L (13.0-17.5) gm/dL Hct 38.2 L (39.0-53.0) % RDW 17.3 H (11.5-15.5) % Plt Count 121 L (150-450) k/uL Neutrophils # 9.9 H (1.3-7.7) k/uL Lymphocytes # 0.4 L (1.0-4.8) k/uL PT 16.5 H (9.0-12.0) sec INR 1.7 H (<1.2) BUN 43 H (9-20) mg/dL Creatinine 1.39 H (0.66-1.25) mg/dL Glucose 125 H (74-99) mg/dL Troponin I (0.000-0.034) ng/mL Total Protein 5.8 L (6.3-8.2) g/dL Albumin 3.1 L (3.5-5.0) g/dL 07/18/21 Range/Units 14:15 WBC (3.8-10.6) k/uL Hgb (13.0-17.5) gm/dL Hct (39.0-53.0) % RDW (11.5-15.5) % Plt Count (150-450) k/uL Neutrophils # (1.3-7.7) k/uL Lymphocytes # (1.0-4.8) k/uL PT (9.0-12.0) sec INR (<1.2) BUN (9-20) mg/dL Creatinine (0.66-1.25) mg/dL Glucose (74-99) mg/dL Troponin I 0.039 H* (0.000-0.034) ng/mL Total Protein (6.3-8.2) g/dL Albumin (3.5-5.0) g/dL Diabetes panel 07/18/21 Range/Units 14:15 Sodium 144 (137-145) mmol/L Potassium 3.7 (3.5-5.1) mmol/L Chloride 106 (98-107) mmol/L Carbon Dioxide 24 (22-30) mmol/L BUN 43 H (9-20) mg/dL Creatinine 1.39 H (0.66-1.25) mg/dL Glucose 125 H (74-99) mg/dL Calcium 8.8 (8.4-10.2) mg/dL AST 28 (17-59) U/L ALT 18 (4-49) U/L Alkaline Phosphatase 54 (38-126) U/L Total Protein 5.8 L (6.3-8.2) g/dL Albumin 3.1 L (3.5-5.0) g/dL Calcium panel 07/18/21 Range/Units 14:15 Calcium 8.8 (8.4-10.2) mg/dL Albumin 3.1 L (3.5-5.0) g/dL Pituitary panel 07/18/21 Range/Units 14:15 Sodium 144 (137-145) mmol/L Potassium 3.7 (3.5-5.1) mmol/L Chloride 106 (98-107) mmol/L Carbon Dioxide 24 (22-30) mmol/L BUN 43 H (9-20) mg/dL Creatinine 1.39 H (0.66-1.25) mg/dL Glucose 125 H (74-99) mg/dL Calcium 8.8 (8.4-10.2) mg/dL Adrenal panel 07/18/21 Range/Units 14:15 Sodium 144 (137-145) mmol/L Potassium 3.7 (3.5-5.1) mmol/L Chloride 106 (98-107) mmol/L Carbon Dioxide 24 (22-30) mmol/L BUN 43 H (9-20) mg/dL Creatinine 1.39 H (0.66-1.25) mg/dL Glucose 125 H (74-99) mg/dL Calcium 8.8 (8.4-10.2) mg/dL Total Bilirubin 0.7 (0.2-1.3) mg/dL AST 28 (17-59) U/L ALT 18 (4-49) U/L Alkaline Phosphatase 54 (38-126) U/L Total Protein 5.8 L (6.3-8.2) g/dL Albumin 3.1 L (3.5-5.0) g/dL
[2021-07-19] MEDS: NYSTATIN 100,000 UNIT/ML SUSP 500,000 UNIT/5 ML CUP PO SCH (15:47)
[2021-07-19 16:16] LABS: Glucose,Whole Blood 115 mg/dL (75-99)
[2021-07-19] MEDS ORDERED: ONDANSETRON 4 MG/2 ML VIAL IVP PRN (17:27)
[2021-07-19] MEDS: MORPHINE SULFATE 4 MG/ML SYRINGE IVP PRN (18:00)
--- NOTE | 2021-07-19 22:42 | P.HPIM ---
History of Present Illness H&P Date: 07/19/21 Chief Complaint: syncope Oniel Arthur is a 80 yo M with PMH of laryngeal cancer s/p radiation, COPD, A fib, CAD, PVD who presented to the ED after having a syncopal event at home. History provided by . Pt was recently discharged from the hospital at which time he had failed his swallow evaluation and was aspirating. He was recommended thickened liquids but has had difficulty tolerating. He thus has not had much PO intake. He continues to complain of cough and is smoking cigarettes. On presentation BP 80/60, positive orthostatics, labs WBC 11k, Cr 1.4, trop 0.04, procalcitonin 0.06. Review of Systems All systems: negative Constitutional: Reports malaise, Reports weakness, Denies chills, Denies fever Eyes: denies blurred vision, denies pain Ears, nose, mouth and throat: Denies headache, Denies sore throat Cardiovascular: Denies chest pain, Denies shortness of breath Respiratory: Denies cough Gastrointestinal: Reports dyspepsia, Denies abdominal pain, Denies diarrhea, De nies nausea, Denies vomiting Musculoskeletal: Denies myalgias Integumentary: Denies pruritus, Denies rash Neurological: Denies numbness, Denies weakness Psychiatric: Denies anxiety, Denies depression Endocrine: Denies fatigue, Denies weight change Past Medical History Past Medical History: Atrial Fibrillation, COPD, Deep Vein Thrombosis (DVT), Myocardial Infarction ([place]), Thyroid Disorder Additional Past Medical History / Comment(s): HX ABDOMINAL AORTIC ANEURYSM,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 cardiac cath with stenting Past Anesthesia/Blood Transfusion Reactions: No Reported Reaction Past Psychological History: No Psychological Hx Reported Smoking Status: Current every day smoker Past Alcohol Use History: None Reported Additional Past Alcohol Use History / Comment(s): STARTED SMOKING 1956 10 cigarettes/day Past Drug Use History: None Reported - Past Family History Mother Family Medical History: Cancer Additional Family Medical History / Comment(s): breast CA Father Additional Family Medical History / Comment(s): COLOSTOMY Daughter(s) Family Medical History: Deep Vein Thrombosis (DVT) Additional Family Medical History / Comment(s): HX FACTOR FIVE LEIDEN Medications and Allergies Home Medications Medication Instructions Recorded Confirmed Type ALPRAZolam [Xanax] 0.5 mg PO HS 08/26/15 07/18/21 History Mometasone/Formoterol [Dulera 200 2 puff INHALATION RT-BID 08/26/15 07/18/21 History Mcg-5 Mcg Inhaler] Albuterol Nebulized [Ventolin 2.5 mg INHALATION RT-QID 04/27/19 07/18/21 History Nebulized] Levothyroxine Sodium [Synthroid] 150 mcg PO DAILY 04/27/19 07/18/21 History Rivaroxaban [Xarelto] 15 mg PO DAILY 04/27/19 07/18/21 History Albuterol Sulfate [Proair 1 puff INHALATION RT-QID PRN 06/20/21 07/18/21 History Respiclick] Atorvastatin [Lipitor] 20 mg PO HS 07/09/21 07/18/21 History Sertraline HCl [Zoloft] 50 mg PO HS 07/09/21 07/18/21 History Nicotine 21Mg/24Hr Patch [Habitrol] 1 patch TRANSDERM DAILY #30 patch 07/11/21 07/18/21 Rx Losartan [Cozaar] 25 mg PO HS 07/18/21 07/18/21 History Megestrol [Megace] 40 mg PO DAILY 07/18/21 07/18/21 History Metoprolol Tartrate [Lopressor] 50 mg PO BID 07/18/21 07/18/21 History predniSONE 5 mg PO HS 07/18/21 07/18/21 History Allergies Allergy/AdvReac Type Severity Reaction Status Date / Time codeine AdvReac Nausea & Verified 07/18/21 16:44 Vomiting Physical Exam Vitals: Vital Signs Temp Pulse Pulse Resp BP BP Pulse Ox 07/19/21 20:00 97.0 F L 91 22 99/58 90 L 07/19/21 17:22 84 26 H 127/72 93 L 07/19/21 16:30 26 H 87 L 07/19/21 16:00 96.3 F L 115 H 30 H 104/71 77 L 07/19/21 15:09 90 18 07/19/21 15:00 89 18 07/19/21 14:00 20 07/19/21 13:00 97.1 F L 86 20 89/68 93 L 07/19/21 11:40 108 H 18 07/19/21 11:29 84 18 07/19/21 08:15 97.9 F 80 18 112/69 94 L 07/19/21 07:02 86 18 07/19/21 06:57 20 94 L 07/19/21 02:58 97.0 F L 80 18 109/76 96 07/19/21 02:00 80 18 07/19/21 00:00 98.0 F 80 18 103/78 95 Intake and Output 07/19/21 07/19/21 07/19/21 06:59 14:59 22:59 Intake Total 375 0 10 Balance 375 0 10 Intake: IV 10 Invasive Line 2 10 Intake, IV Titration 375 Amount Sodium Chloride 0.9% 1, 375 000 ml @ 75 mls/hr IV . [id number] ONE Rx#:[id number] Oral 0 Other: Voiding Method Bedside Commode Bedside Commode Bedside Commode Urinal Urinal Urinal # Voids 2 2 1 # Bowel Movements 1 Weight 53.07 kg 53.07 kg General: well nourished, well developed, NAD. Vitals reviewed Eyes: PERRL, EOMI, conjunctiva normal HENT: normocephalic, mucus membranes moist Neck: supple, no JVD Lungs: normal respiratory effort, no wheezes or rales CV: Regular rate and rhythm, no murmur. Peripheral pulses 2+ Abdomen: soft, nondistended, no organomegaly Lymph: no cervical or axillary LAD Skin: warm and dry. Neuro: oriented, no focal deficits Results CBC & Chem 7: 07/18/21 14:15 07/18/21 14:15 Labs: Abnormal Lab Results - Last 24 Hours (Table) 07/19/21 Range/Units 16:14 POC Glucose (mg/dL) 115 H (75-99) mg/dL Thrombosis Risk Factor Assmnt - Choose All That Apply Any of the Below Risk Factors Present?: No Other Risk Factors: Yes Each Risk Factor Represents 3 Points: Age 75 years or older Thrombosis Risk Factor Assessment Total Risk Factor Score: 3 Thrombosis Risk Factor Assessment Level: Moderate Risk Assessment and Plan Plan: 1. Syncope. secondary to [place]. Start IV fluids, hold losartan. consult to Card iology 2. Dysphagia. Pt unsure about PEG placement, unable to tolerate PO. Surgery consult 3. A fib. Lovenox while NPO
[2021-07-20] MEDS: ATORVASTATIN 20 MG TAB PO SCH (06:15)
[2021-07-20] MEDS: ALPRAZolam 0.5 MG TAB PO SCH (06:15)
[2021-07-20] MEDS: NYSTATIN 100,000 UNIT/ML SUSP 500,000 UNIT/5 ML CUP PO SCH ×3 (06:16→12:50)
[2021-07-20] MEDS: SERTRALINE 50 MG TAB PO SCH (06:16)
[2021-07-20] MEDS: METOPROLOL TARTRATE 25 MG TAB PO SCH ×2 (06:16→09:36)
[2021-07-20] MEDS: LEVOTHYROXINE 75 MCG TAB PO SCH (06:18)
[2021-07-20] MEDS: MIDODRINE 5 MG TAB PO SCH ×2 (06:20→11:54)
[2021-07-20] MEDS: SODIUM CHLORIDE 0.9% 1,000 ML IV SCH ×2 (08:12→09:37)
[2021-07-20] MEDS: ALBUTEROL NEBULIZED 2.5 MG/3 ML INHALATION SCH ×2 (09:31→11:56)
[2021-07-20] MEDS: NICOTINE 21MG/24HR PATCH TRANSDERM SCH (09:36)
[2021-07-20] MEDS: ENOXAPARIN 40 MG/0.4 ML SYRINGE SQ SCH (09:36)
--- NOTE | 2021-07-20 10:27 | P.DS ---
Providers Date of admission: 07/20/21 07:56 Expected date of discharge: 07/20/21 Attending physician: Kaveh Meyers MD Consults: 07/18/21 16:32 Consult Physician Urgent Consulting Provider: [facility] Consult Reason/Comments: Syncope Do you want consulting provider notified?: Yes 07/19/21 09:21 Consult Physician Routine Consulting Provider: [facility] Consult Reason/Comments: peg tube placement Do you want consulting provider notified?: Yes Primary care physician: Kaveh Meyers MD Hospital Course: Final Diagnoses: 1. Syncope. secondary to [place]. 2. Dysphagia.declined PEG placement 3. A fib. 4. No code, no CPR, no intubation 5. Hospice Hospital course: Oneil Arthur is a 80 yo M with PMH of laryngeal cancer s/p radiation, COPD, A fib, CAD, PVD who presented to the ED after having a syncopal event at home. History provided by . Pt was recently discharged from the hospital at which time he had failed his swallow evaluation and was aspirating. He was recommended thickened liquids but has had difficulty tolerating. He thus has not had much PO intake. He continues to complain of cough and is smoking cigarettes. On presentation BP 80/60, positive orthostatics, labs WBC 11k, Cr 1.4, trop 0.04, procalcitonin 0.06. Patient and declined PEG tube Patient and declined PEG tube, decided upon hospice, currently meeting with hospice team. Patient will be discharged home today in a stable condition with guarded prognosis, with hospice. The impression and plan of care has been dictated as directed. : I performed a history and examination of this patient, discussed the same with the dictator. I agree with the dictator's note ,documented as a scribe. Any additional findings or plans will be noted. Patient Condition at Discharge: Stable Plan - Discharge Summary Discharge Rx Participant: No New Discharge Prescriptions: Discontinued Levothyroxine Sodium [Synthroid] 150 mcg PO DAILY Megestrol [Megace] 40 mg PO DAILY Atorvastatin [Lipitor] 20 mg PO HS No Action ALPRAZolam [Xanax] 0.5 mg PO HS Mometasone/Formoterol [Dulera 200 Mcg-5 Mcg Inhaler] 2 puff INHALATION RT-BID Rivaroxaban [Xarelto] 15 mg PO DAILY Albuterol Nebulized [Ventolin Nebulized] 2.5 mg INHALATION RT-QID Nicotine 21Mg/24Hr Patch [Habitrol] 1 patch TRANSDERM DAILY #30 patch predniSONE 5 mg PO HS Albuterol Sulfate [Proair Respiclick] 1 puff INHALATION RT-QID PRN PRN Reason: Shortness Of Breath Sertraline HCl [Zoloft] 50 mg PO HS Losartan [Cozaar] 25 mg PO HS Metoprolol Tartrate [Lopressor] 50 mg PO BID Discharge Medication List ALPRAZolam [Xanax] 0.5 mg PO HS 08/26/15 [History] Mometasone/Formoterol [Dulera 200 Mcg-5 Mcg Inhaler] 2 puff INHALATION RT-BID 08/26/15 [History] Albuterol Nebulized [Ventolin Nebulized] 2.5 mg INHALATION RT-QID 04/27/19 [H istory] Rivaroxaban [Xarelto] 15 mg PO DAILY 04/27/19 [History] Albuterol Sulfate [Proair Respiclick] 1 puff INHALATION RT-QID PRN 06/20/21 [History] Sertraline HCl [Zoloft] 50 mg PO HS 07/09/21 [History] Nicotine 21Mg/24Hr Patch [Habitrol] 1 patch TRANSDERM DAILY #30 patch 07/11/21 [Rx] Losartan [Cozaar] 25 mg PO HS 07/18/21 [History] Metoprolol Tartrate [Lopressor] 50 mg PO BID 07/18/21 [History] predniSONE 5 mg PO HS 07/18/21 [History] Follow up Appointment(s)/Referral(s): Kaveh Meyers MD [Primary Care Provider] - As Needed Discharge Disposition: HOME WITH HOSPICE
[2021-07-20] MEDS ORDERED: DEXTROSE 5% IN WATER 100 ML with AMIODARONE 150 MG IV ONE (12:38)
--- NOTE | 2021-07-20 12:56 | P.PN ---
Subjective Progress Note Date: 07/20/21 CHIEF COMPLAINT: Syncopal episode HISTORY OF PRESENT ILLNESS: Surgical service following in regards to possible PEG tube placement. Patient failed swallow evaluation. Has had issues with aspiration. At this time patient and have declined PEG tube placement and they're proceeding to go home with hospice. PHYSICAL EXAM: VITAL SIGNS: Reviewed. GENERAL: Well-developed in no acute distress. HEENT: No sclera icterus. Extraocular movements grossly intact. Moist buccal mucosa. Head is atraumatic, normocephalic. ABDOMEN: Soft. Nondistended. Nontender. NEUROLOGIC: Alert and oriented. Cranial nerves II through XII grossly intact. ASSESSMENT: 1. Dysphagia 2. Moderate protein calorie malnutrition 3. History of vocal cord cancer status post radiation treatment 4. Acute kidney injury 5. Poor oral intake 6. Failed swallow evaluation 7. Syncopal episode with orthostatic hypotension and decreased oral intake PLAN: -Patient and have declined PEG tube placement and proceeding to be discharged home with hospice Physician Technical Illustrations Map Inker note has been reviewed by physician. Signing provider agrees with the documented findings, assessment, and plan of care. Objective - Vital Signs Vital signs: Vital Signs Temp 98.1 F 07/20/21 08:05 Pulse 130 H 07/20/21 12:02 Resp 17 07/20/21 08:05 BP 114/65 07/20/21 08:05 Pulse Ox 95 07/20/21 08:05 Intake & Output 07/19/21 07/20/21 07/20/21 18:59 06:59 18:59 Intake Total 0 10 225 Output Total 400 Balance 0 10 -175 Weight 53.07 kg Intake: IV 10 225 Invasive Line 2 10 Sodium Chloride 0.9% 1, 225 000 ml @ 75 mls/hr IV . [id number] [facility] Rx#:[id number] Oral 0 Output: Urine 400 Other: Voiding Method Bedside Commode Bedside Commode Bedside Commode Urinal Urinal Urinal # Voids 1 2 1 - Labs CBC & Chem 7: 07/18/21 14:15 07/18/21 14:15 Labs: Abnormal Lab Results - Last 24 Hours (Table) 07/19/21 Range/Units 16:14 POC Glucose (mg/dL) 115 H (75-99) mg/dL
[2021-07-20 13:01] VITALS: PULSE 147; TEMP 98
[2021-07-20] MEDS: MORPHINE SULFATE 4 MG/ML SYRINGE IVP PRN (13:15)
--- NOTE | 2021-07-20 13:16 | P.PN ---
Progress Note - Text Progress Note Date: 07/20/21 Per nursing, patient is going home with hospice today. Further management per internal medicine. We will sign off. Please reconsult if needed.
[2021-07-20 15:42] VITALS: BP 85/45; RESP 19
== END 2021-07-20 15:55 | disposition hospice, home (50) | DRG 683 ==
LOC: EC 13:59 → 3SCARD 16:37 → OBSVTOIN 07-20 07:56
PROVIDERS: ADMIT Family Medicine; ATTEND Family Medicine
DX: N17.9 Acute kidney failure, unspecified (principal); E44.0 Moderate protein-calorie malnutrition; I48.19 Other persistent atrial fibrillation; I50.32 Chronic diastolic (congestive) heart failure; I95.1 Orthostatic hypotension; Z20.822 Contact with and (suspected) exposure to COVID-19; E78.5 Hyperlipidemia, unspecified; F17.210 Nicotine dependence, cigarettes, uncomplicated; I25.10 Atherosclerotic heart disease of native coronary artery without angina pectoris; Z51.5 Encounter for palliative care; I25.2 Old myocardial infarction; I49.3 Ventricular premature depolarization; I73.9 Peripheral vascular disease, unspecified; J44.9 Chronic obstructive pulmonary disease, unspecified; K75.4 Autoimmune hepatitis; Z92.3 Personal history of irradiation; Z87.19 Personal history of other diseases of the digestive system; Z85.21 Personal history of malignant neoplasm of larynx; Z80.3 Family history of malignant neoplasm of breast; Z79.899 Other long term (current) drug therapy; Z79.890 Hormone replacement therapy; Z79.51 Long term (current) use of inhaled steroids; Z79.01 Long term (current) use of anticoagulants; R13.10 Dysphagia, unspecified
CPT/HCPCS: 36415; 70450; 71045; 71046; 80053; 83735; 83880; 84145; 84484; 85025; 85610; 85730; 87635; 93005; 94640; 96360; 99285